=== PATIENT | female | born 1960 | race Caucasian/White ===

== ENCOUNTER → 2017-12-10 11:20 | Outpatient (CLI) | payer OTHER, SELFPAY ==
[2017-12-10 12:10] LABS: Absolute Lymphocyte Count 1.13 X10^3/ul (0.83-4.51); Basophil# 0.03 X10^3/uL; Basophil% 0.6 % (0-1); Eosinophil# 0.18 X10^3/uL; Eosinophils% 3.8 % (0-5); Hemoglobin 10.3 g/dl (12.0-15.0); Lymphocyte # 1.13 X10^3/ul (4.0); Lymphocyte % 23.8 % (19-41); Mean Corp Hgb Conc 33.2 g/gl (32-36); Mean Corpuscular Hgb 28.6 pg (27.0-32.0); Mean Corpuscular Volume 86.1 fL (81-99); Mean Platelet Vol. 9.4 fl (6.2-12.0); Monocyte# 0.36 X10^3/uL; Monocyte% 7.6 % (0-10); Neutrophil # 3.03 X10^3/uL (2.7-7.7); Platelet Count 261 K/mm3 (150-450); RBC Distribution Width CV 12.2 % (11.6-14.6); RBC Distribution Width SD 36.7 fl (35.1-43.9); White Blood Count 4.7 K/mm3 (4.4-11.0)
[2017-12-10 12:11] LABS: POSITIVE COUNT NO; POSITIVE DIFFERENTIAL NO; POSITIVE MORPHOLOGY NO
[2017-12-10 12:46] LABS: ALB/GLOB Ratio 0.5 RATIO (0.9-2.4); AST(SGOT) 9 U/L (15-37); Alanine Aminotransfer ALT/SGPT 11 U/L (13-56); Albumin, Serum 2.3 g/dL (3.2-5.0); Alkaline Phosphatase 106 U/L (45-117); Anion Gap 10 (5-15); BUN 36 mg/dL (7-18); BUN/Creat Ratio 18.4 RATIO (10-20); Calcium,Total 8.5 mg/dL (8.5-10.1); Chloride 108 mmol/L (98-107); Creatinine, Serum 1.96 mg/dL (0.55-1.02); EST Glomerular Filtration Rate 28 mL/min (>60); Est Glom Filt Rate - Afr Amer 34 mL/min (>60); Globulin 5.1 g/dL (2.2-4.2); Glucose 137 mg/dL (74-106); Protein, Total 7.4 g/dL (6.4-8.2); Sodium Level 142 mmol/L (136-145)
== END ==
PROVIDERS: Family Provider Internal Medicine; PCP Internal Medicine; Visit Provider Internal Medicine Rheumatology
DX: M05.79 Rheumatoid arthritis with rheumatoid factor of multiple sites without organ or systems involvement (principal); L94.0 Localized scleroderma [morphea]; K76.0 Fatty (change of) liver, not elsewhere classified; M75.41 Impingement syndrome of right shoulder; F32.89 Other specified depressive episodes; Z79.899 Other long term (current) drug therapy
CPT/HCPCS: 36415; 80053; 85025

== ENCOUNTER → 2018-08-06 11:17 | Outpatient (CLI) | payer OTHER, SELFPAY ==
[2018-08-06 12:46] LABS: Protein, Urine (Random) 580.9 mg/dL (<11.9); Protein:Creat Ratio 7735 mg/g CRE (0-200)
== END ==
PROVIDERS: Family Provider Internal Medicine; PCP Internal Medicine; Visit Provider Internal Medicine Nephrology
DX: R80.9 Proteinuria, unspecified (principal)
CPT/HCPCS: 82570; 84156

== ENCOUNTER → 2018-08-09 16:00 | Outpatient (CLI) | payer OTHER, SELFPAY ==
--- NOTE | 2018-08-09 16:06 | US_ITS ---
STUDY: RENAL ULTRASOUND - COMPLETE REASON FOR EXAM: Female, 57 years old. Acute renal failure. TECHNIQUE: Ultrasound evaluation of the kidneys was performed with real-time and static sigala-scale imaging. COMPARISON: None. FINDINGS: RIGHT KIDNEY: Normal location of the right kidney, which is normal in size. The right kidney measures 13.6 x 6.4 x 5.7 cm. There is a normal cortex of the right kidney. The renal cortex measures 1.5 cm. There is no right renal mass or cyst. There are no right renal calculi. There is no right hydronephrosis. DISTAL RIGHT URETER: There is non-visualization of the distal right ureter. There is no demonstrated right ureterovesical junction calculus. There is no demonstrated right ureteral jet. LEFT KIDNEY: Normal location of the left kidney, which is normal than usual in size. The left kidney measures 15.8 x 5.6 x 4.9 cm. There is a normal cortex of the left kidney. The renal cortex measures 1.6 cm. Multiple cysts in the left kidney the largest is in the upper pole measuring about 1.9 x 1.9 x 1.7 cm. There is a cyst measuring about 1.7 x 1.4 x 1.5 cm. There are no left renal calculi. There is no left hydronephrosis. There is suboptimal visualization of the left kidney. DISTAL LEFT URETER: There is non-visualization of the distal left ureter. There is no demonstrated left ureterovesical junction calculus. There is no demonstrated left ureteral jet. BLADDER: The distended urinary bladder has a volume of 41 ml. The bladder is not well-distended and difficult to evaluate. There is a normal wall thickness of the distended urinary bladder. There is no demonstrated mass within the urinary bladder. There are no demonstrated bladder calculi. US/Kidney and Bladder IMPRESSION: Left renal cysts. No evidence for hydronephrosis. Electronically Signed: Imtiaz Carson MD at 15:49 EST Tel , Service support ,
== END ==
PROVIDERS: Family Provider Internal Medicine; PCP Internal Medicine; Referring Provider Internal Medicine Nephrology; Visit Provider Internal Medicine Nephrology
DX: N17.9 Acute kidney failure, unspecified (principal)
CPT/HCPCS: 76770

== ENCOUNTER → 2018-11-28 09:45 | Outpatient (CLI) | payer OTHER, SELFPAY ==
--- NOTE | 2018-11-28 09:50 | VDUE_ITS ---
Reason For Study: CKD - assess for AVF placement Right Arm Left Arm Right Cephalic Vein at the wrist Left Cephalic Vein at the wrist measures .23 measures .23 x .24 cm. x .23 cm. Right Cephalic Vein in the forearm Left Cephalic Vein in the forearm measures .31 x .32 cm. measures .26 x .23 cm. Right Cephalic Vein below antecub Left Cephalic Vein below antecub measures .31 x .32 cm. measures .29 x .30 cm. Right Cephalic Vein above antecub Left Cephalic Vein above antecub measures .47 x .50 cm. measures .40 x .39 cm. Right Cephalic Vein mid bicep measures .46 Left Cephalic Vein at mid bicep measures .42 x .40 cm. x .45 cm. Right Cephalic Vein at the shoulder Left Cephalic Vein at the shoulder measures .40 x .42 cm. measures .46 x .47 cm. Right Basilic Vein at the origin Basilic vein at origin measures .40 x .40 measures .42 x .47 cm. cm. Right Basilic Vein mid bicep measures .41 Basilic vein at bicep measures .26 x .27 cm. x .43 cm. Basilic vein above antecub measures .23 Right Basilic Vein above antecub x .25 cm. measures .37 x .38 cm. Brachial artery - .41 x .45 cm with a Brachial artery - .48 x .49 cm with a velocity of 106 cm/s velocity of 97.9 cm/s Radial artery - .30 x .34 cm with a velocity Radial artery - .26 x .25 cm with a velocity of 85.0 cm/s. of 91.5 cm/s. Interpretation Summary Patent and compressible bilateral upper extremity cephalic and basilic veins Adequate bilateral radial and brachial arteries. Ordering Physician: Chayito Jernigan Referring Physician: Ember Santos M.D. Performed By: Jenna Christina RVT ?
== END ==
PROVIDERS: Family Provider Internal Medicine; PCP Internal Medicine; Referring Provider Internal Medicine Nephrology; Visit Provider Internal Medicine Nephrology
DX: N18.4 Chronic kidney disease, stage 4 (severe) (principal)
CPT/HCPCS: 93970

== ENCOUNTER 2018-12-26 09:40 | Day surgery (SDC) | payer OTHER, SELFPAY ==
[2018-12-03 14:00] VITALS: BMI 41.6
[2018-12-21 09:50] LABS: Hematocrit 27.6 % (37-47); Hemoglobin 8.8 g/dl (12.0-15.0); Mean Corp Hgb Conc 31.9 g/gl (32-36); Mean Corpuscular Volume 84.7 fL (81-99); Mean Platelet Vol. 9.7 fl (6.2-12.0); Platelet Count 195 K/mm3 (150-450); RBC Distribution Width SD 43.5 fl (35.1-43.9); Red Blood Count 3.26 M/mm3 (4.2-5.4); White Blood Count 6.9 K/mm3 (4.4-11.0)
--- NOTE | 2018-12-21 10:00 | EKG12_ITS ---
Test Reason : PRE-OP Blood Pressure : / mmHG Vent. Rate : 063 BPM Atrial Rate : 063 BPM P-R Int : 154 ms QRS Dur : 092 ms QT Int : 472 ms P-R-T Axes : 007 -21 084 degrees QTc Int : 483 ms Normal sinus rhythm Nonspecific T wave abnormality Prolonged QT Abnormal ECG Confirmed by PETR SOLORZANO, BEE ([id number]), publication editor DEEPA WEINSTEIN ([id number]) on 12/24/2018 2:05:30 PM Referred By: Jimenez Lemons Confirmed By:BEE HUMPHREYS MD
[2018-12-21 10:01] LABS: Scan Indicated on CBC? Y/N NO
[2018-12-21 10:34] LABS: Anion Gap 8 (5-15); BUN 72 mg/dL (7-18); BUN/Creat Ratio 21.6 RATIO (10-20); Calcium,Total 8.1 mg/dL (8.5-10.1); Chloride 114 mmol/L (98-107); Creatinine, Serum 3.34 mg/dL (0.55-1.02); EST Glomerular Filtration Rate 15 mL/min (>60); Est Glom Filt Rate - Afr Amer 18 mL/min (>60); Glucose 142 mg/dL (74-106); Potassium 4.2 mmol/L (3.5-5.1); Sodium Level 143 mmol/L (136-145)
[2018-12-26 10:46] VITALS: BP 178/72; PULSE 60; RESP 16; TEMP 36.9; O2SAT 99; BMI 43.0
[2018-12-26 11:01] LABS: Bedside Glucose 55 mg/dL (70-110)
--- NOTE | 2018-12-26 12:27 | PCM.DC.FIST ---
Discharge Diet: Renal Diet Discharge Activity: May Not Drive - for 2-3 days or while taking narcotic pain medications., May Take a Tub Bath - in 5 days. Lifting Restrictions: 5 pounds Keep extremity elevated above heart level: - - Keep arm elevated above the heart level for 3 days. Additional Activity Instructions:: Exercise hand vigorously with a stress ball. Call your doctor if your incision/area has: Continuous Slow Oozing, Sudden Increased Bleeding - apply pressure and call your doctor., Increased Pain/ Swelling, Increased Redness, Foul Smelling Discharge Call your doctor if you observe: Fever of 101 or Higher Suture Line Care: Avoid Pulling/Pushing, Avoid Pinching/Bending Cleanse incision/area with: Keep Dressing Clean & Dry Additional Dressing/Incision Instructions:: Change or remove dressing in 2 days. You may then leave the incision open with steri strips intact or cover with a gauze dressing as needed for comfort Allergies/Adverse Reactions: Allergies No Known Allergies Allergy (Verified 12/19/18 14:56) Medications to take at Discharge abatacept 125 mg/mL subcutaneous auto-injector 125 mg SC QWEEK 12/03/18 albuterol sulfate 90 mcg/actuation breath activated powder inhaler 1 inh INHALATION Q4H PRN 12/03/18 albuterol sulfate HFA 90 mcg/actuation aerosol inhaler 1 puff INHALATION Q6H PRN 12/03/18 amlodipine 5 mg tablet 5 mg PO DAILY 12/03/18 atorvastatin 40 mg tablet 40 mg PO DAILY 12/03/18 bumetanide 1 mg tablet 1 mg PO DAILY 12/03/18 carvedilol 25 mg tablet 25 mg PO BID 12/03/18 ergocalciferol (vitamin D2) 50,000 unit capsule 50,000 unit PO QWEEK 12/03/18 ferrous sulfate 325 mg (65 mg iron) tablet 325 mg PO TID tab 12/03/18 insulin aspart (U-100) 100 unit/mL (3 mL) subcutaneous pen 27 unit SC TID 12/03/18 insulin degludec (U- 100) 100 unit/mL subcutaneous solution 96 unit SC QHS 12/03/18 lisinopril 20 mg tablet 20 mg PO DAILY 12/03/18 omeprazole 20 mg capsule,delayed release 20 mg PO DAILY 12/03/18 Hydrocodone Bitart/Apap 5-325 [[place] 5MG-325MG] 1 tablet PO Q6H PRN PRN 2 Days #6 tablet 12/26/18 The following prescriptions were given: Hydrocodone Bitart/Apap 5-325 [[place] 5MG-325MG] 1 tablet PO Q6H PRN PRN 2 Days #6 tablet PRN Reason: Pain Primary Care Physician: Ember Santos MD [Primary Care Provider] - Test Results: Test results from this visit will be discussed in further detail at your follow-up appointment, if applicable. Please Follow Up With: Jimenez Lemons MD - [phone] When: Call to make an appointment for suture removal and follow up in 10 days
[2018-12-26] MEDS: Heparin Injection (Vial) 5,000 UNIT/ML VIAL 5000 UNIT (12:30)
[2018-12-26] MEDS: Bupivacaine Mpf 0.5% 30 ML VIAL (13:30)
--- NOTE | 2018-12-26 14:35 | OP.PCM_ITS ---
Problem List (1) Chronic renal failure, stage 4 (severe) Status: Chronic Report of Operation Date of Procedure: 12/26/18 Pre-Operative Diagnosis: Stage IV chronic renal insufficiency Post-Operative Diagnosis: Same Surgery/Procedure Performed:: Transposition left forearm cephalic vein to radial artery arteriovenous hemodialysis fistula creation Description of Surgical Findings:: Timeout and informed consent was obtained. 58-year-old female significant placement table with monitored anesthesia care. The left upper extremity was sterilely prepped and draped. 33 cc of 1% lidocaine mixed 50-50 with 0.5% Marcaine and 6 cc of 1/2% lidocaine was used as local anesthetic throughout. Ultrasound was used to map the course of the cephalic vein starting from the wrist proximally. Local was instilled a longitudinal incision was eventually created from the wrist up to the antecubital space. Tedious sharp and blunt dissection was used to harvest the cephalic vein. Side branches were secured with 4-0 Vicryl ligatures and hemoclips were indicated. Then the vein was inked marked on the anterior surface it was measured. An appropriate position at the radial artery local was instilled a longitudinal incision was created sharp blunt dissection was used to identify the radial artery and circumferential control was obtained. Then a straight tunnel was placed from the wrist to the a ntecubital space this was medial to the harvest incision. The vein was ligated distally with hemoclips it was at a branch point so the vein could be spatulated at a branch point. It was then carefully tunneled supposed to assure no twists. It was irrigated seem to have a good positional lie. Weightbase the patient received 11,000 units of heparin intravenously. Peripheral vascular clamps were placed on the partially mobilized radial artery. An 11 blade was used to make an arteriotomy was extended with Mi scissors. A end-to-side anastomosis was made with the cephalic vein to the radial artery with a running 7-0 Prolene. Prior to completion there is good antegrade and retrograde flow. The anastomosis was completed hemostasis was intact. The vein was carefully inspected and it appeared to have a very good positional lie. There was a good pulse and adequate thrill. The wounds were now closed in layers with multiple interrupted 3-0 Vicryl subdermal stitches followed by running septic or 4-0 Monocryl. Steri-Strips Telfa soft roll and Enoch wrap applied. Sponge and instrument and needle counts were reported to surgically correct. Specimens none. Drains none. Blood loss 150 cc. Hand was viable at the completion and there is adequate capillary refill she was taken to the recovery area in satisfactory condition. Jimenez Lemons M.D., F.A.C.S. Type of Anesthesia:: Local MAC Anesthesiologist: Renny Abad
[2018-12-26 14:36] LABS: Bedside Glucose 135 mg/dL (70-110)
[2018-12-26 14:36] LABS: Bedside Glucose 132 mg/dL (70-110)
[2018-12-26 15:00] VITALS: BP 138/61; BP 178/72; PULSE 57; RESP 16; TEMP 36.1; O2SAT 93
[2018-12-26 15:05] VITALS: BP 140/62; BP 178/72; PULSE 57; RESP 16; O2SAT 93
[2018-12-26 15:10] VITALS: BP 131/61; BP 178/72; PULSE 56; RESP 16; O2SAT 92
[2018-12-26 15:15] VITALS: BP 142/64; BP 178/72; PULSE 57; RESP 16; TEMP 36.4; O2SAT 93
[2018-12-26 15:25] LABS: Bedside Glucose 107 mg/dL (70-110)
[2018-12-26 16:05] VITALS: BP 141/62; BP 178/72; PULSE 57; RESP 16; TEMP 36.2; O2SAT 95
== END 2018-12-26 16:44 | disposition home or self-care (01) ==
LOC: SDC 09:43 → AC 09:44
PROVIDERS: Family Provider Internal Medicine; PCP Internal Medicine; Referring Provider Surgery; Visit Provider Surgery
PROC: (CPT 36820; principal; 2018-12-26 11:45)
DX: E11.22 Type 2 diabetes mellitus with diabetic chronic kidney disease (principal); I13.2 Hypertensive heart and chronic kidney disease with heart failure and with stage 5 chronic kidney disease, or end stage renal disease; N18.6 End stage renal disease; M06.9 Rheumatoid arthritis, unspecified; Z99.2 Dependence on renal dialysis; D50.9 Iron deficiency anemia, unspecified; E78.00 Pure hypercholesterolemia, unspecified; J45.909 Unspecified asthma, uncomplicated; K21.9 Gastro-esophageal reflux disease without esophagitis; E66.01 Morbid (severe) obesity due to excess calories; F41.9 Anxiety disorder, unspecified; Z78.0 Asymptomatic menopausal state; Z79.4 Long term (current) use of insulin; Z79.899 Other long term (current) drug therapy
CPT/HCPCS: 01844; 36820; 36415; 80048; 82962; 85027; 93005; J2405

== ENCOUNTER → 2019-01-06 13:32 | Outpatient (CLI) | payer OTHER, SELFPAY ==
[2018-12-26 10:46] VITALS: BMI 43.0
[2019-01-06 13:23] VITALS: BMI 43.0
[2019-01-06 15:12] LABS: Hemoglobin 8.6 g/dl (12.0-15.0); Mean Corp Hgb Conc 30.7 g/gl (32-36); Mean Corpuscular Hgb 26.7 pg (27.0-32.0); Mean Platelet Vol. 10.2 fl (6.2-12.0); Platelet Count 225 K/mm3 (150-450); RBC Distribution Width CV 15.3 % (11.6-14.6); RBC Distribution Width SD 47.7 fl (35.1-43.9); Red Blood Count 3.22 M/mm3 (4.2-5.4); White Blood Count 6.1 K/mm3 (4.4-11.0)
[2019-01-06 15:14] LABS: Scan Indicated on CBC? Y/N NO
[2019-01-06 15:32] LABS: Protein, Urine (Random) 362.1 mg/dL (<11.9); Protein:Creat Ratio 8174 mg/g CRE (0-200)
[2019-01-06 15:50] LABS: Vitamin D,25 Hydroxy 27.7 ng/mL (29.95-100.01)
[2019-01-06 15:52] LABS: Albumin, Serum 2.7 g/dL (3.2-5.0); BUN 61 mg/dL (7-18); BUN/Creat Ratio 21.2 RATIO (10-20); Calcium,Total 8.4 mg/dL (8.5-10.1); Chloride 113 mmol/L (98-107); Creatinine, Serum 2.88 mg/dL (0.55-1.02); EST Glomerular Filtration Rate 18 mL/min (>60); Est Glom Filt Rate - Afr Amer 22 mL/min (>60); Ferritin 126 ng/mL (8-252); Glucose 79 mg/dL (74-106); Iron 37 ug/dL (50-170); Iron Binding Capacity,Total 250 ug/dL (250-450); Phosphorus 4.5 mg/dL (2.5-4.9); Potassium 4.2 mmol/L (3.5-5.1); Sodium Level 144 mmol/L (136-145)
== END ==
PROVIDERS: Family Provider Internal Medicine; PCP Internal Medicine; Referring Provider Internal Medicine Nephrology; Visit Provider Internal Medicine Nephrology
DX: E11.22 Type 2 diabetes mellitus with diabetic chronic kidney disease (principal); N18.4 Chronic kidney disease, stage 4 (severe); D50.9 Iron deficiency anemia, unspecified
CPT/HCPCS: 36415; 80069; 82306; 82570; 82728; 83540; 83550; 83970; 84156; 85027

== ENCOUNTER 2019-02-10 14:05 | Outpatient (RCR) | payer OTHER, SELFPAY ==
[2019-01-06 13:23] VITALS: BMI 43.0
[2019-02-10 15:21] LABS: Albumin, Serum 2.5 g/dL (3.2-5.0); BUN 77 mg/dL (7-18); BUN/Creat Ratio 24.1 RATIO (10-20); Calcium,Total 8.3 mg/dL (8.5-10.1); Chloride 111 mmol/L (98-107); Creatinine, Serum 3.19 mg/dL (0.55-1.02); EST Glomerular Filtration Rate 16 mL/min (>60); Est Glom Filt Rate - Afr Amer 19 mL/min (>60); Glucose 102 mg/dL (74-106); Phosphorus 4.7 mg/dL (2.5-4.9); Potassium 3.9 mmol/L (3.5-5.1); Sodium Level 144 mmol/L (136-145)
[2019-02-10 15:43] LABS: PTHIN 329.4 pg/mL (18.4-80.1)
== END 2019-03-02 12:00 | disposition home or self-care (01) ==
LOC: LAB 14:05
PROVIDERS: Family Provider Internal Medicine; PCP Internal Medicine; Referring Provider Internal Medicine Nephrology; Visit Provider Internal Medicine Nephrology
DX: N18.4 Chronic kidney disease, stage 4 (severe) (principal); N25.81 Secondary hyperparathyroidism of renal origin
CPT/HCPCS: 36415; 80069; 83970

== ENCOUNTER 2019-03-25 16:25 | Outpatient (RCR) | payer OTHER, SELFPAY ==
[2019-01-06 13:23] VITALS: BMI 43.0
[2019-03-25 17:06] LABS: Absolute Neutrophil Count 4.4 X10^3/uL (2.0-7.7); Basophil# 0.06 X10^3/uL; Basophil% 0.9 % (0-1); Eosinophil# 0.32 X10^3/uL; Eosinophils% 4.7 % (0-5); Hematocrit 31.5 % (37-47); Hemoglobin 9.9 g/dL (12.0-15.0); Lymphocyte % 20.8 % (19-41); Mean Corp Hgb Conc 31.4 g/dL (32-36); Mean Corpuscular Hgb 26.3 pg (27.0-32.0); Mean Corpuscular Volume 83.6 fL (81-99); Mean Platelet Vol. 10.4 fl (6.2-12.0); Monocyte# 0.58 X10^3/uL; Monocyte% 8.6 % (0-10); NRBC Flagged by Analyzer 0 % (0-5); Neutrophil # 4.36 X10^3/uL (2.7-7.7); Neutrophil % 64.7 % (47-70); Platelet Count 197 K/mm3 (150-450); RBC Distribution Width SD 45.6 fl (35.1-43.9); Red Blood Count 3.77 M/mm3 (4.2-5.4); White Blood Count 6.7 K/mm3 (4.4-11.0)
[2019-03-25 17:34] LABS: ALB/GLOB Ratio 0.6 RATIO (0.9-2.4); AST(SGOT) 16 U/L (15-37); Alanine Aminotransfer ALT/SGPT 24 U/L (13-56); Albumin, Serum 2.7 g/dL (3.2-5.0); Alkaline Phosphatase 118 U/L (45-117); Anion Gap 13 (5-15); BUN 76 mg/dL (7-18); BUN/Creat Ratio 20.3 RATIO (10-20); Calcium,Total 8.6 mg/dL (8.5-10.1); Chloride 110 mmol/L (98-107); Creatinine, Serum 3.74 mg/dL (0.55-1.02); EST Glomerular Filtration Rate 13 mL/min (>60); Est Glom Filt Rate - Afr Amer 16 mL/min (>60); Globulin 4.2 g/dL (2.2-4.2); Glucose 137 mg/dL (74-106); Phosphorus 5.5 mg/dL (2.5-4.9); Potassium 3.9 mmol/L (3.5-5.1); Protein, Total 6.9 g/dL (6.4-8.2); Sodium Level 142 mmol/L (136-145)
[2019-03-25 18:06] LABS: PTHIN 158.8 pg/mL (18.4-80.1)
== END 2019-04-02 16:00 | disposition home or self-care (01) ==
LOC: LAB 16:25
PROVIDERS: Family Provider Internal Medicine; PCP Internal Medicine; Referring Provider Internal Medicine Nephrology; Visit Provider Internal Medicine Nephrology
DX: N18.4 Chronic kidney disease, stage 4 (severe) (principal); N25.81 Secondary hyperparathyroidism of renal origin
CPT/HCPCS: 36415; 80053; 83970; 84100; 85025

== ENCOUNTER → 2019-04-02 13:49 | Outpatient (CLI) | payer OTHER, SELFPAY ==
[2019-01-06 13:23] VITALS: BMI 43.0
[2019-04-03 10:52] LABS: Hepatitis B Surface Antibody Non-Reactive; Hepatitis B Surface Antigen Non-Reactive (Nonreactive)
== END ==
PROVIDERS: Family Provider Internal Medicine; PCP Internal Medicine; Visit Provider Internal Medicine Nephrology
DX: N18.5 Chronic kidney disease, stage 5 (principal)
CPT/HCPCS: 36415; 86706; 87340

== ENCOUNTER → 2019-04-07 07:51 | Outpatient (CLI) | payer OTHER, SELFPAY ==
[2019-01-06 13:23] VITALS: BMI 43.0
[2019-04-07 10:06] LABS: Albumin, Serum 2.6 g/dL (3.2-5.0); BUN 86 mg/dL (7-18); BUN/Creat Ratio 22.8 RATIO (10-20); Calcium,Total 8.5 mg/dL (8.5-10.1); Chloride 115 mmol/L (98-107); Creatinine, Serum 3.77 mg/dL (0.55-1.02); EST Glomerular Filtration Rate 13 mL/min (>60); Est Glom Filt Rate - Afr Amer 16 mL/min (>60); Glucose 63 mg/dL (74-106); Phosphorus 5.7 mg/dL (2.5-4.9); Potassium 4.1 mmol/L (3.5-5.1); Sodium Level 144 mmol/L (136-145)
[2019-04-07 10:08] LABS: 24HR. UA Prot. Total Volume 1775 mL
[2019-04-07 10:09] LABS: Creat.Clear Total Volume 1775 mL; Creatinine Clearance 23 ml/min (100-200); Creatinine Serum Creat 3.8 mg/dL (0.6-1.0); Creatinine Urine 69.1 mg/dL (NO RANGE EST.); EST Glomerular Filtration Rate 13 mL/min (>60); Est Glom Filt Rate - Afr Amer 16 mL/min (>60); Urine Protein (24 Hour) 368.9 mg/dL (<11.9)
== END ==
LOC: LAB.FUTURE 07:53 → LABSPEC 07:54
PROVIDERS: Family Provider Internal Medicine; PCP Internal Medicine; Referring Provider Internal Medicine Nephrology; Visit Provider Internal Medicine Nephrology
DX: N18.5 Chronic kidney disease, stage 5 (principal)
CPT/HCPCS: 36415; 80069; 82575; 84156

== ENCOUNTER 2019-07-21 16:20 | Inpatient (IN) | payer OTHER, SELFPAY ==
[2019-01-06 13:23] VITALS: BMI 43.0
[2019-07-21] VITALS (14 sets, daily range): BP systolic 134–172; BP diastolic 60–95; PULSE 57–74; RESP 12–28; TEMP 36.8–37.6; O2SAT 88–100; BMI 45.2; BMI 45.3
[2019-07-21 15:44] LABS: Absolute Lymphocyte Count 0.39 X10^3/uL (0.83-4.51); Absolute Neutrophil Count 2.5 X10^3/uL (2.0-7.7); Basophil# 0.02 X10^3/uL; Basophil% 0.6 % (0-1); Eosinophil# 0.01 X10^3/uL; Eosinophils% 0.3 % (0-5); Hemoglobin 10.1 g/dL (12.0-15.0); Lymphocyte # 0.39 X10^3/ul (4.0); Lymphocyte % 11.6 % (19-41); Mean Corp Hgb Conc 29.7 g/dL (32-36); Mean Corpuscular Hgb 26.5 pg (27.0-32.0); Mean Corpuscular Volume 89.2 fL (81-99); Mean Platelet Vol. 10.1 fl (6.2-12.0); Monocyte# 0.37 X10^3/uL; NRBC Flagged by Analyzer 0 % (0-5); Neutrophil # 2.53 X10^3/uL (2.7-7.7); Neutrophil % 75.3 % (47-70); POSITIVE DIFFERENTIAL YES; Platelet Count 129 K/mm3 (150-450); RBC Distribution Width CV 16.4 % (11.6-14.6); RBC Distribution Width SD 53.8 fl (35.1-43.9); Red Blood Count 3.81 M/mm3 (4.2-5.4); White Blood Count 3.4 K/mm3 (4.4-11.0)
[2019-07-21 16:09] LABS: ALB/GLOB Ratio 0.6 RATIO (0.9-2.4); AST(SGOT) 35 U/L (15-37); Alanine Aminotransfer ALT/SGPT 30 U/L (13-56); Albumin, Serum 2.4 g/dL (3.2-5.0); Alkaline Phosphatase 155 U/L (45-117); Anion Gap 9 (5-15); BUN 75 mg/dL (7-18); BUN/Creat Ratio 18.6 RATIO (10-20); Calcium,Total 8.3 mg/dL (8.5-10.1); Chloride 113 mmol/L (98-107); Creatinine, Serum 4.03 mg/dL (0.55-1.02); EST Glomerular Filtration Rate 12 mL/min (>60); Est Glom Filt Rate - Afr Amer 15 mL/min (>60); Glucose 104 mg/dL (74-106); Magnesium 1.8 mg/dL (1.6-2.6); Potassium 4.5 mmol/L (3.5-5.1); Protein, Total 6.4 g/dL (6.4-8.2); Sodium Level 141 mmol/L (136-145)
[2019-07-21 16:20] LABS: BNP,B-Type NATRIURETIC PEPTIDE 405.6 pg/mL (0-100); Differential Indicated SCAN CRITERIA MET
--- NOTE | 2019-07-21 16:20 | ECHOD_ITS ---
Reason For Study: CHF Procedure This was a 2D Doppler, Color Flow transthoracic echocardiogram. Exam performed portable in ICU/CCU. Left Ventricle Normal LV size. Left ventricular systolic function is normal. The estimated ejection fraction is 55 %. Stage 2 diastolic dysfunction. No regional wall motion abnormalities noted. Right Ventricle Mildly dilated right ventricle. Normal systolic function. Atria The left atrium is mildly enlarged. Normal right atrium. Mitral Valve Normal mitral valve. Tricuspid Valve Normal tricuspid valve. Mild (1+) tricuspid valve insufficiency. Pulmonary artery systolic pressure is 30 mmHg. Aortic Valve Trisinus/trileaflet aortic valve. Pulmonic Valve Normal pulmonic valve. Great Vessels Normal aortic root. The pulmonary artery is normal size. Normal inferior vena cava. Pericardium/Pleural No pericardial effusion. MMode/2D Measurements & Calculations LVIDd: 5.8 cm IVSd: 1.1 cm Ao root diam: 3.1 cm LVIDs: 3.8 cm LVPWd: 1.0 cm RVDd: 3.9 cm FS: 33.5 % LAV(MOD-bp): 73.7 ml LA A4 area: 23.7 cm2 LA dimension(2D): 4.5 cm LAV(MOD-bp) Indexed: 32.1 ml/m2 LAV(MOD-sp2): 65.0 ml LAV(MOD-sp4): 75.9 ml RA A4 area: 20.7 cm2 Time Measurements MV dec time: 0.21 sec Doppler Measurements & Calculations MV E max barry: 102.3 cm/sec Lat Peak E' Barry: 8.3 cm/sec Med Peak E' Barry: 7.7 cm/sec MV A max barry: 69.5 cm/sec E/E' lat: 12.4 E/E' med: 13.3 MV E/A: 1.5 Ao V2 max: 149.5 cm/sec LV V1 max: 116.1 cm/sec PA V2 max: 128.9 cm/sec Ao max P.9 mmHg LV V1 max P.4 mmHg TR max barry: 258.0 cm/sec TR max P.6 mmHg Interpretation Summary Normal LV size. Left ventricular systolic function is normal. The estimated ejection fraction is 55 %. Stage 2 diastolic dysfunction. Mild (1+) tricuspid valve insufficiency. Ordering Physician: Carissa Jernigan Referring Physician: Ember Mann Performed By: Laila James RDCS, RVT
--- NOTE | 2019-07-21 16:42 | PCM.HP.STD ---
Problem List (1) Acute respiratory failure Status: Acute Qualifiers: Respiratory failure complication: hypoxia Qualified Code(s): J96.01 - Acute respiratory failure with hypoxia History of Present Illness Date of Admission: 07/21/19 The patient is a 58 year old F who presented to [facility] with c/o SOB and oxygen saturations in the mid 70's on RA. She states that she has had increased SOB over the last month but has become acutely worse in the last few days. She c/o chills but no documented fever has been noted. She has a mildly productive cough. She is on chronic immunosuppression (abatacept) for RA and her last dose was about 2 weeks ago. She states that she has chronic edema that is usually worse in the am but has worsened and she has noted that she has gained weight (about 14 kg). She has a fistula in her R UE that is ready for use but she has never required HD in the past. 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 She was given 40 mg of lasix in the ED and transferred here for further care. She notes that she is feeling somewhat better now that she is on BIPAP. Sats were in the 80's on a venti mask upon arrival to our ICU. Past Medical History Past Medical History (Chronic Problems): Chronic Problems (Last Reviewed 04/03/19 @ 07:40 by Domonique Evangelista) Chronic renal failure, stage 4 (severe) (Chronic) HTN (hypertension) (Chronic) Medical History: Medical History (Last Reviewed 04/03/19 @ 07:40 by Domonique Evangelista) Morbid obesity (Acute) E66.01 Rheumatoid arthritis (Acute) M06.9 Diabetes mellitus type 2 in obese (Acute) E11.69, E66.9 Chronic renal failure, stage 4 (severe) (Chronic) N18.4 Obesity (Acute) E66.9 High cholesterol (Acute) E78.00 HTN (hypertension) (Chronic) I10 Asthma (Acute) J45.909 Rheumatoid arthritis (Acute) M06.9 Kidney failure (Acute) N19 CHF (congestive heart failure) (Acute) I50.9 EDNA (iron deficiency anemia) (Acute) D50.9 Allergies No Known Allergies Allergy (Verified 04/03/19 07:40) Home Medications: Ambulatory Orders Medication Instructions Recorded abatacept 125 mg/mL subcutaneous 125 mg SC QWEEK 12/03/18 auto-injector albuterol sulfate 90 mcg/actuation 1 inh INHALATION Q4H PRN 12/03/18 breath activated powder inhaler albuterol sulfate HFA 90 1 puff INHALATION Q6H PRN 12/03/18 mcg/actuation aerosol inhaler amlodipine 5 mg tablet 5 mg PO DAILY 12/03/18 atorvastatin 40 mg tablet 40 mg PO DAILY 12/03/18 bumetanide 1 mg tablet 1 mg PO DAILY 12/03/18 carvedilol 25 mg tablet 25 mg PO BID 12/03/18 ergocalciferol (vitamin D2) 50,000 50,000 unit PO QWEEK 12/03/18 unit capsule ferrous sulfate 325 mg (65 mg 325 mg PO TID tab 12/03/18 iron) tablet insulin aspart (U-100) 100 unit/mL 27 unit SC TID 12/03/18 (3 mL) subcutaneous pen insulin degludec (U-100) 100 96 unit SC QHS 12/03/18 unit/mL subcutaneous solution lisinopril 20 mg tablet 20 mg PO DAILY 12/03/18 omeprazole 20 mg capsule,delayed 20 mg PO DAILY 12/03/18 release Surgical History: Surgical History (Last Reviewed 04/03/19 @ 07:40 by Domonique Evangelista) Hx of arteriovenostomy for renal dialysis (Acute) Onset Date: ~12/2018 Z99.2 12/26/18 Broken arm (Acute) S42.309A Surgical History: - - AV fistula ([place]) 2018 Psychiatric History: No pertinent psych hx 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 Denies: Anorexia, Fever, Night Sweats Eyes: Denies: Blurred vision, Cataracts, Conjunctivae Inflammation, Double vision, Drainage, Eyelid Inflammation, Pain, Redness, Vision Change HEENT: Denies: Difficulty Hearing, Difficulty Swallowing, Dysphasia, Ear Pain, Eye Pain, Hard of Hearing, Head Aches, Hearing Changes, Nasal bleeding, Nasal Congestion, Post Nasal Drip, Sinus Congestion, Sinus Drainage, Sore Throat, Visual Changes Cardiovascular: Reports: Edema, Orthopnea. Denies: Chest Pain, Claudication, Chest Pressure, Chest Tightness, Heaviness, Light Headedness, Palpitations, Paroxysmal Noc. Dyspnea, Syncope Respiratory: Reports: Cough, Shortness of Breath, Shortness of breath at rest, Shortness of breath upon exertion, Sputum production. Denies: Hemoptysis, Pleuritic Pain, Wheezing Gastrointestinal: Denies: Abdominal Pain, Constipation, Diarrhea, Dyspepsia, Hematemesis, Hematochezia, Nausea, Melena, Vomiting Genitourinary: Denies: Dysuria, Frequency, Hematuria, Hesitancy, Incontinence, Nocturia, Retention, Urgency Gynecological: Denies: Breast symptoms, Excessively long or heavy periods, Sexual concerns, Vaginal bleeding, Vaginal discharge, Vaginal itching Musculoskeletal: Reports: Joint stiffness, Joint swelling. Denies: Arm Pain, Back Pain, Foot Pain, Hand Pain, Joint Pain, Joint Tenderness, Leg Pain, Muscle pain, Neck Pain, Shoulder Pain Skin: Reports: -. Denies: Dryness, Jaundice, Lesions, Pruritis, Rash, Skin Changes, Wounds Neurological: Denies: Balance problems, Blurred vision, Double vision, Change in Speech, Slurred speech, Confusion, Difficulty swallowing, Focal weakness, Headaches, Incoordination, Numbness, Tingling, Tremor, Seizures Psychiatric: Denies: Anxiety, Depression, Suicidal Ideations Endocrine: Denies: Change in Body Habitus, Heat/ Cold Intolerance, Polydipsia, Polyuria, Hx of Irradiation, Hx of Thyroiditis Hematologic/ Lymphatic: Reports: Anemia. Denies: Adenopathy, Easy Bruising, Easy Bleeding, Petechiae, Purpura, Hx of blood clot, Hx of blood transfusion VTE Information - Inpt Only VTE Present on Admission: No VTE Mechan Device Prophylaxis: SCD's VTE Pharm Prophylaxis ordered?: Yes Patient Problems: Active and Suspected Problems (Last Reviewed 04/03/19 @ 07:40 by Domonique Evangelista) Acute respiratory failure (Acute) - Physical Exam Vitals/I&O's: Vital Signs Pulse Resp Pulse Ox 57 L 28 H 100 07/21/19 15:30 07/21/19 15:30 07/21/19 15:30 Oxygen Flow Rate (L/min) 15 Oxygen Delivery Method Non-Rebreather Weight: 127.2 kg Body Mass Index (BMI) 45.2 General: Alert, Oriented x3, Cooperative, Well developed, Well nourished, - - MO, mild respiratory distress on BIPAP HEENT: Atraumatic, PERRLA, EOMI, Normocephalic, EAC Clear Oral: Moist Mucosa, No Gingival or Mucosal Lesions/ Ulcerations, - - fair dentition Neck: Supple, Negative Carotid Bruits, No Nodes, Trachea Midline, Thyroid Normal Size and Texture, JVD, Bilateral, - - + HJR Lungs: No rhonchi, No wheeze, Rales - diffuse B, Short of Breath, Tachypneic, Using Accessory Muscles - mild Cardiovascular: Regular rate, Normal S1, Normal S2, No murmurs, No Ectopic Activity, No rub noted, No Gallop Abdomen: Bowel Sounds Present, Soft, Non Tender, Non-Distended, No Hepato-splenomegaly - palpated although difficult exam 2/2 body habitus, Obese - anasarca with pitting on abdomen Extremities: No clubbing, No cyanosis, No Calf Tenderness, Edema - 3+, Peripheral Pulses Normal Skin: No rashes, No breakdown, - - well healed L UE fistual with + bruit and thrill Musculoskeletal: No Tenderness to Palpation of Joints or Extremities, No Muscle Wasting, Arthritic Changes Lymphatic: No Cervical, Supraclavicular, or Inguinal Adenopathy Neurological: Cranial nerves II-XII grossly intact, Deep Tendon Reflexes 2+/4 and Symmetrical, Neuro grossly intact, Motor Exam 5/5 strength throughout Psych/Mental Status: Normal Affect, Appropriate Laboratory Results 07/21/19 15:30: WBC 3.4 L, RBC 3.81 L, Hgb 10.1 L, Hct 34.0 L, MCV 89.2, MCH 26.5 L, MCHC 29.7 L, RDW Std Deviation 53.8 H, RDW Coeff of Andres 16.4 H, Plt Count 129 L, MPV 10.1, Immature Gran % (Auto) 1.200 H, Neut % (Auto) 75.3 H, Lymph % (Auto) 11.6 L, Dickey % (Auto) 11.0 H, Eos % (Auto) 0.3, Baso % (Auto) 0.6, Absolute Neuts (auto) 2.5, Absolute Lymphs (auto) 0.39 L, Nucleated RBC % 0 07/21/19 15:30: Sodium 141, Potassium 4.5, Chloride 113 H, Carbon Dioxide 19.0 L, Anion Gap 9, BUN 75 H, Creatinine 4.03 H, Est GFR (MDRD) Af Amer 15 L, Est GFR (MDRD) Non-Af 12 L, BUN/Creatinine Ratio 18.6, Glucose 104, Calcium 8.3 L, Phosphorus 6.0 H, Magnesium 1.8, Total Bilirubin 0.50, AST 35, ALT 30, Alkaline Phosphatase 155 H, Troponin I < 0.015, Total Protein 6.4, Albumin 2.4 L, Globulin 4.0, Albumin/Globulin Ratio 0.6 L 07/21/19 15:30: B-Natriuretic Peptide 405.6 H Current Medications Acetaminophen (Tylenol) 650 mg RECTAL Q4H PRN PRN PRN Reason: Pain Score 1-3/Temp > 100.7 F Albuterol/Ipratropium (Duoneb) 3 ml INHALATION Q6H.RT URBANO Carvedilol (Coreg) 25 mg PO BID URBANO Dextrose (D50w Syringe) 0 gm IV X1 PRN; Protocol PRN Reason: Hypoglycemia Furosemide (Lasix) 100 mg IV Q8 URBANO Glucagon () 1 mg IM .X1 PRN PRN Reason: Hypoglycemia Heparin Sodium (Porcine) (Heparin Na) 5,000 unit SC Q8 URBANO Ceftriaxone Sodium 2 gm/ (Sodium Chloride) 50 mls @ 100 mls/hr IV Q24 URBANO Stop: 07/22/19 00:01 Azithromycin 500 mg/ Dextrose 255 mls @ 250 mls/hr IV X1 ONE Stop: 07/21/19 17:37 Insulin Human Lispro (Humalog Kwikpen (Bkc)) 0 unit SC Q6 URBANO; Protocol Lisinopril (Zestril) 20 mg PO DAILY [facility] Sodium Chloride () 10 - 40 ml IV UD PRN PRN Reason: SALINE FLUSH Assessment/Plan All Active Problems (Last Reviewed 04/03/19 @ 07:40 by Domonique Evangelista) Acute respiratory failure (Acute) Hx of arteriovenostomy for renal dialysis (Acute ~12/2018) Morbid obesity (Acute) Rheumatoid arthritis (Acute) Diabetes mellitus type 2 in obese (Acute) Broken arm (Acute) Obesity (Acute) High cholesterol (Acute) Asthma (Acute) Rheumatoid arthritis (Acute) Kidney failure (Acute) CHF (congestive heart failure) (Acute) EDNA (iron deficiency anemia) (Acute) Acute Hypoxemic Respiratory Failure -suspected 2/2 volume overload -Lasix 100 TID for now -Gross and monitor I/O's -BIPAP 16/04 with FiO2 30% -ABG in am -repeat BNP in am -Stat CXR for baseline and repeat in am -Check ECHO -repeat Trops (no elevation in [place]) -with immunosuppression with dose ABX x 1 dose ( CTX 2 gms and Azithro 500 mg) -check Urine antigens/Flu Swab/Sputum cx if able -? if any baseline lung issues with RA hx -consult PULM/ICU CKD stage 4 -has fistula L UE -consult Nephro as pt may need UF if diuresis is not effective -follow creatinine and UO (creatinine appears to be about baseline compared to creat from 04/03/19-3.8) DM-2 -pt states that she has been having lows -will dose now with mod dose SSI q 6 hrs for now and add/increase dosing as needed -NPO except for sips and chips for now HTN/HPL -continue Coreg and Lisinopril for now (with baseline creat) -hold norvasc -hold statin Chronic Fe Deficiency Anemia -hold Fe replacement Thrombocytopenia/Leukopenia -? volume status vs meds -follow (mild) Hyperphosphatemia -? phosphate binder -await nephro input Asthma DuoNebs q 6 RA -on immunosuppression (abatacept) -last dose 2 weeks ago -seen by Rheum MO -based on body habitus would suspect ALEE -will need outpt PSG once stable -recommend wgt loss Vit D Deficiency -on high dose Ergocalciferol as outpt CCT >30 min without procedures Code Visit Inpatient E&M: 19469 Init Hosp L3
--- NOTE | 2019-07-21 16:50 | RAD_ITS ---
STUDY: X-RAY CHEST REASON FOR EXAM: Female, 58 years old. Shortness of breath TECHNIQUE: Single AP portable view of the chest. COMPARISON: None. FINDINGS: monitoring engineer leads are present. There are bilateral perihilar infiltrates. There is no demonstrated pleural abnormality. There is mild cardiac enlargement. Normal mediastinum and alee. Normal visualized pulmonary arteries. Normal visualized aortic arch and descending thoracic aorta. Normal visualized thoracic spine. Normal visualized ribs, clavicles, and shoulders. There is no demonstrated abnormality of the visualized soft tissue structures of the upper abdomen. RAD/Chest 1 View (Portable) IMPRESSION: Bilateral perihilar infiltrates suggestive of pulmonary edema. Cardiomegaly. Electronically Signed: Rojas Spence MD at 17:23 EST , Service support ,
[2019-07-21 17:22] LABS: Anisocytosis 1+; Platelet Estimate SLT DEC (ADEQ); Red Cell Morphology N CHROM NORMAL (NORM C&C)
--- NOTE | 2019-07-21 17:27 | CON.PCM_ITS ---
Consultation - Renal 07/21/19 PCP/ Referring MD: Requesting physician: Carissa Jernigan DO Primary care physician: Ember Santos MD Reason for Consultation:: CKD stage 5, CHF - History of Present Illness History of Present Illness: The patient is a 58 year old F well known to me with CKD Stage 4 due to diabetes, had AVF placed left forearm but has not started dialysis. Her last 24-hour urine creatinine clearance was 23cc/minute on April 2019. Her creatinine has been running in the mid to high 3's. Creatinine on admission was at 4. She presented to [facility] ER with c/o worsening shortness of breath since last with hypoxemia. She was transferred to [facility] and is admitted to intensive care unit for further management. She had a cough with clear thick secretions. Currently on BiPAP and is responding appropriately. Denied any hemoptysis or fever. Admits to weakness and chills. Chest x-ray reveals pulmonary edema with significant lower extremity edema. She denies any change in her urine output on Lasix at home. She had decreased appetite without nausea or vomiting. She admits to diarrhea with loose stools last episode today. She is on chronic immunosuppression (abatacept) for RA and her last dose was about 2 weeks ago. Her next appt with me is next week. - Allergies Allergies: Allergies No Known Allergies Allergy (Verified 04/03/19 07:40) - Current Medications Current Medications: Current Medications Acetaminophen (Tylenol) 650 mg RECTAL Q4H PRN PRN PRN Reason: Pain Score 1-3/Temp > 100.7 F Albuterol/Ipratropium (Duoneb) 3 ml INHALATION Q6H.RT [facility] Carvedilol (Coreg) 25 mg PO BID U[facility]O Dextrose (D50w Syringe) 0 gm IV X1 PRN; Protocol PRN Reason: Hypoglycemia Furosemide (Lasix) 80 mg IV Q8 [facility] Glucagon () 1 mg IM .X1 PRN PRN Reason: Hypoglycemia Heparin Sodium (Porcine) (Heparin Na) 5,000 unit SC Q8 [facility] Ceftriaxone Sodium 2 gm/ (Sodium Chloride) 50 mls @ 100 mls/hr IV Q24 [facility] Stop: 07/21/19 17:29 Azithromycin 500 mg/ Dextrose 255 mls @ 250 mls/hr IV X1 ONE Stop: 07/21/19 17:37 Insulin Human Lispro (Humalog Kwikpen (Bkc)) 0 unit SC Q6 [facility]; Protocol Lisinopril (Zestril) 20 mg PO DAILY [facility] Sodium Chloride () 10 - 40 ml IV UD PRN PRN Reason: SALINE FLUSH - Past Medical History Past Medical History (Chronic Problems): Chronic Problems (Last Reviewed 04/03/19 @ 07:40 by Domonique Evangelista) Chronic renal failure, stage 4 (severe) (Chronic) HTN (hypertension) (Chronic) - Past Surgical History Surgical History: - - AV fistula ([place]) 2019 - Social History Smoking Status: Never smoker Alcohol: None Drugs: None Review of Systems Constitutional: Reports: Anorexia, Chills, Malaise, Weakness. Denies: Fever Eyes: Denies: Vision Change HEENT: Denies: Head Aches Cardiovascular: Reports: Edema, Orthopnea. Denies: Chest Pain, Syncope Respiratory: Reports: Shortness of breath at rest Gastrointestinal: Reports: Diarrhea. Denies: Abdominal Pain, Constipation, Nausea, Vomiting Genitourinary: Denies: Dysuria, Frequency Skin: Denies: Rash, Wounds Neurological: Reports: - - Generalized weakness. Denies: Tremor, Seizures Psychiatric: Denies: Anxiety, Depression Hematologic/ Lymphatic: Reports: Anemia Patient Problems: Active and Suspected Problems (Last Reviewed 04/03/19 @ 07:40 by Domonique Evangelista) Acute respiratory failure (Acute) - Physical Exam Vitals/I&O's: Vital Signs Pulse Resp Pulse Ox 57 L 28 H 100 07/21/19 15:30 07/21/19 15:30 07/21/19 15:30 Oxygen Flow Rate (L/min) 15 Oxygen Delivery Method Non-Rebreather Weight: 127.2 kg Body Mass Index (BMI) 45.2 General: Alert, Oriented x3, Cooperative, - - Dyspneic on BiPAP HEENT: PERRLA, EOMI Neck: Supple Lungs: Rhonchi, Wheezes, - - Secretions Cardiovascular: Regular rate Abdomen: Bowel Sounds Present, Soft, Non Tender, Obese Extremities: Edema - 2+ pitting edema bilateral lower extremities, - - AV fistula left forearm with thrill and bruit Skin: No rashes Neurological: Cranial nerves II-XII grossly intact, Muscle tone normal Psych/Mental Status: Normal Affect, Appropriate, Alert and oriented to time, place, person, mood and affect Laboratory Results 07/21/19 15:30: WBC 3.4 L, RBC 3.81 L, Hgb 10.1 L, Hct 34.0 L, MCV 89.2, MCH 26.5 L, MCHC 29.7 L, RDW Std Deviation 53.8 H, RDW Coeff of Andres 16.4 H, Plt Count 129 L, MPV 10.1, Immature Gran % (Auto) 1.200 H, Neut % (Auto) 75.3 H, Lymph % (Auto) 11.6 L, [place] % (Auto) 11.0 H, Eos % (Auto) 0.3, Baso % (Auto) 0.6, Absolute Neuts (auto) 2.5, Absolute Lymphs (auto) 0.39 L, Nucleated RBC % 0, Differential Comment , Diff Path Review January, Platelet Estimate SLT DEC, RBC Morphology N CHROM, Anisocytosis 1+ 07/21/19 15:30: Sodium 141, Potassium 4.5, Chloride 113 H, Carbon Dioxide 19.0 L , Anion Gap 9, BUN 75 H, Creatinine 4.03 H, Est GFR (MDRD) Af Amer 15 L, Est GFR (MDRD) Non-Af 12 L, BUN/Creatinine Ratio 18.6, Glucose 104, Calcium 8.3 L, Phosphorus 6.0 H, Magnesium 1.8, Total Bilirubin 0.50, AST 35, ALT 30, Alkaline Phosphatase 155 H, Troponin I < 0.015, Total Protein 6.4, Albumin 2.4 L, Globulin 4.0, Albumin/Globulin Ratio 0.6 L 07/21/19 15:30: B-Natriuretic Peptide 405.6 H Clinical Impression(s) from Imaging Studies Chest X-Ray 07/21/19 16:50 IMPRESSION: Bilateral perihilar infiltrates suggestive of pulmonary edema. Cardiomegaly. Electronically Signed: Rojas Spence MD at 17:23 EST , Service support , Current Medications Acetaminophen (Tylenol) 650 mg RECTAL Q4H PRN PRN PRN Reason: Pain Score 1-3/Temp > 100.7 F Albuterol/Ipratropium (Duoneb) 3 ml INHALATION Q6H.RT U[facility]ANO Carvedilol (Coreg) 25 mg PO BID [facility] Dextrose (D50w Syringe) 0 gm IV X1 PRN; Protocol PRN Reason: Hypoglycemia Furosemide (Lasix) 80 mg IV Q8 [facility] Glucagon () 1 mg IM .X1 PRN PRN Reason: Hypoglycemia Heparin Sodium (Porcine) (Heparin Na) 5,000 unit SC Q8 [facility] Ceftriaxone Sodium 2 gm/ (Sodium Chloride) 50 mls @ 100 mls/hr IV Q24 [facility] Stop: 07/21/19 17:29 Azithromycin 500 mg/ Dextrose 255 mls @ 250 mls/hr IV X1 ONE Stop: 07/21/19 17:37 Insulin Human Lispro (Humalog Kwikpen (Bkc)) 0 unit SC Q6 [facility]; Protocol Lisinopril (Zestril) 20 mg PO DAILY [facility] Sodium Chloride () 10 - 40 ml IV UD PRN PRN Reason: SALINE FLUSH Assessment/Plan All Active Problems (Last Reviewed 04/03/19 @ 07:40 by Domonique Evangelista) Acute respiratory failure (Acute) Hx of arteriovenostomy for renal dialysis (Acute ~12/2018) Morbid obesity (Acute) Rheumatoid arthritis (Acute) Diabetes mellitus type 2 in obese (Acute) Broken arm (Acute) Obesity (Acute) High cholesterol (Acute) Asthma (Acute) Rheumatoid arthritis (Acute) Kidney failure (Acute) CHF (congestive heart failure) (Acute) EDNA (iron deficiency anemia) (Acute) 1. CKD stage IV appears to have progressed to stage V with underlying diabetic nephropathy with nephrotic range proteinuria. Creatinine at 4.0 on Lasix and VAMSI inhibitor therapy. GFR estimated at 12 cc/minute however last 24 urine in April 2019 showed creatinine clearance of 23 cc/min we will initiate hemodialysis tonight for fluid overload. 2. Acute respiratory failure due to pulmonary edema on BiPAP. Will initiate hemodialysis today with IV Lasix. 3. Diabetes mellitus type 2 primary service management 4. Hypertention with stable blood pressure 5. Anemia hgb stable 6. AVF left forearm use new fistula protocol
[2019-07-21] MEDS: Furosemide 100 MG/10 ML Vial 80 MG IV ×2 (17:39→23:31)
[2019-07-21 17:46] LABS: Allen Test POS; Base Excess -8 mmol/L (-2 to +2); Bicarbonate 18.5 mmol/L (22-26); Blood Gas Specimen Type ART; EPAP 8; FI02 30; IPAP 14; PO2 68 mmHG (75-100); RR 12; SITE R Radial; SO2 91 % (95-99); Time Given 1715; Total Carbon Dioxide 20 mmol/L; pCO2 39.1 mmHg (35-45); pH 7.28 (7.35-7.45)
--- NOTE | 2019-07-21 18:35 | CON.PCM_ITS ---
Reason for Consult Date of Consultation: 07/21/19 Reason for Consultation: Shortness of breath History of Present Illness: The patient is a 58 year old F who presented to [facility] with c/o SOB and oxygen saturations in the mid 70's on RA. She states that she has had increased SOB over the last month but has become acutely worse in the last few days. She c/o chills but no documented fever has been noted. She has a mildly productive cough. She is on chronic immunosuppression (abatacept) for RA and her last dose was about 2 weeks ago. She states that she has chronic edema that is usually worse in the am but has worsened and she has noted that she has gained weight (about 14 kg). She has a fistula in her left upper extremity that is ready for use but she has never required HD in the past. She was admitted to the intensive care unit. Cardiology was called for further evaluation and management. She is specifically denies any chest pain or paroxysmal nocturnal dyspnea though she has had some orthopnea. Past Medical History Allergies/Adverse Reactions: Allergies No Known Allergies Allergy (Verified 04/03/19 07:40) Home Medications: Ambulatory Orders Medication Instructions Recorded abatacept 125 mg/mL subcutaneous 125 mg SC QWEEK 12/03/18 auto-injector albuterol sulfate 90 mcg/actuation 1 inh INHALATION Q4H PRN 12/03/18 breath activated powder inhaler albuterol sulfate HFA 90 1 puff INHALATION Q6H PRN 12/03/18 mcg/actuation aerosol inhaler amlodipine 5 mg tablet 5 mg PO DAILY 12/03/18 atorvastatin 40 mg tablet 40 mg PO DAILY 12/03/18 bumetanide 1 mg tablet 1 mg PO DAILY 12/03/18 carvedilol 25 mg tablet 25 mg PO BID 12/03/18 ergocalciferol (vitamin D2) 50,000 50,000 unit PO QWEEK 12/03/18 unit capsule ferrous sulfate 325 mg (65 mg 325 mg PO TID tab 12/03/18 iron) tablet insulin aspart (U-100) 100 unit/mL 27 unit SC TID 12/03/18 (3 mL) subcutaneous pen insulin degludec (U-100) 100 96 unit SC QHS 12/03/18 unit/mL subcutaneous solution lisinopril 20 mg tablet 20 mg PO DAILY 12/03/18 omeprazole 20 mg capsule,delayed 20 mg PO DAILY 12/03/18 release Past Medical History (Chronic Problems): Chronic Problems (Last Reviewed 04/03/19 @ 07:40 by Domonique Evangelista) Chronic renal failure, stage 4 (severe) (Chronic) HTN (hypertension) (Chronic) Surgical History: - - AV fistula ([place]) 2019 Psychiatric History: No 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 Denies: Chest Discomfort, Orthopnea, PND, Peripheral Edema, Palpitations, Lightheadedness, Dizziness, Near Syncope, Syncope Respiratory: Denies: Cough, Sputum Production, Hemoptysis Gastrointestinal: Denies: Hematemesis, Hematochezia, Melena Genitourinary: Denies: Dysuria, Hematuria Muscoloskeletal: Denies: Myalgias Skin: Denies: Rash Neurological: Denies: Dizziness Psychiatric: Denies: Anxiety Endocrine: Denies: Unexplained Weight Loss Subjectve: Pleasant lady in no distress Objective: Vital Signs Pulse Resp Pulse Ox 60 22 H 93 07/21/19 17:31 07/21/19 17:31 07/21/19 17:31 Oxygen Flow Rate (L/min) 15 Oxygen Delivery Method Non-Rebreather Weight: 280 lb 6.848 oz Body Mass Index (BMI) 45.2 Intake and Output for Last 24 Hours 07/19/19 07/20/19 07/21/19 23:59 23:59 23:59 Intake Total 50 / 50 Balance 50 / 50 General: Awake, Alert, Oriented x 3 HEENT: PERRL, EOMI, Sclera Non Icteric Neck: Supple, Good ROM, No Lymph Node Enlargement Lungs: Clear to auscultation Cardiovascular: Regular Rhythm, Normal S1, Normal S2, No Murmurs, No Rubs, No Gallops Vascular: No Carotid Bruits, Normal Femoral Pulses, Normal Radial Pulses, Normal Dorsalis Pedal Pulse, Normal Posterior Tibial Pulses Abdomen: Bowel Sounds Present, Soft, Non Tender, No HSM, No Organomegaly Extremities: No Cyanosis, No Clubbing, No edema Musculoskeletal: No Erythema Skin: No Rashes Lymphatic: No Lymph Node Enlargement Neurological: No Focal Motor or Sensory Deficit Psych/Mental Status: Appropriate 07/21/19 15:30: WBC 3.4 L, RBC 3.81 L, Hgb 10.1 L, Hct 34.0 L, MCV 89.2, MCH 26.5 L, MCHC 29.7 L, Plt Count 129 L, MPV 10.1, Immature Gran % (Auto) 1.200 H, Neut % (Auto) 75.3 H, Lymph % (Auto) 11.6 L, [place] % (Auto) 11.0 H, Eos % (Auto) 0.3, Baso % (Auto) 0.6, Absolute Neuts (auto) 2.5, Nucleated RBC % 0 07/21/19 15:30: Sodium 141, Potassium 4.5, Chloride 113 H, Carbon Dioxide 19.0 L , Anion Gap 9, BUN 75 H, Creatinine 4.03 H, Est GFR (MDRD) Af Amer 15 L, Est GFR (MDRD) Non-Af 12 L, BUN/Creatinine Ratio 18.6, Glucose 104, Calcium 8.3 L, Phosphorus 6.0 H, Magnesium 1.8, Total Bilirubin 0.50, Troponin I < 0.015 07/21/19 15:30: B-Natriuretic Peptide 405.6 H 07/21/19 17:16: pH 7.28 L, Bicarbonate Actual 18.5 L, POC Total CO2 20, Base Excess -8 L, O2 Saturation 91 L, ABG pCO2 39.1, ABG pO2 68 L, Michael Test POS Rhythm: EKG: ECHO: Stress Test: Cardiac Cath: PCI: CT Surgery: Holter monitor: EPS: PPM: CXR: Chest CT Scan: Assessment/Plan 1. Congestive heart failure * Etiology of the above is likely secondary to hypertensive heart disease as well as progressive renal failure. * Recommendation will be to obtain an echocardiogram to assess her left ventricular function * Intravenous Lasix and dialysis as has been planned * Further recommendations will depend on her response to the above therapy. At some point he may be helpful for her to undergo a pharmacologic myocardial perfusion stress test to exclude ischemia. * 2. Hypertension * Good control continue current medical therapy * Obtain echocardiogram to assess left ventricular function * * Thank you for allowing me to participate in the care of your patient. Please don't hesitate to call if any issues arise
[2019-07-21 18:41] LABS: Bedside Glucose 82 mg/dL (70-110)
[2019-07-21] MEDS: Ipratropium/Albuterol Sulfate 3 ML AMPUL.NEB INHALATION (19:00)
[2019-07-21] MEDS: Lidocaine/Prilocaine HCl 5 GM Tube 1 GM TOPICAL (19:26)
[2019-07-21] MEDS: Nystatin Powder 15gm Bottle 1 APPLIC TOPICAL (22:12)
[2019-07-21] MEDS: Heparin Injection (Vial) 5,000 UNIT/ML VIAL 5000 UNIT SC (22:12)
[2019-07-21] MEDS: Carvedilol 25 MG Tablet PO (23:31)
--- NOTE | 2019-07-21 23:47 | DIALYSIS ---
HD x2.5 hours completed, patient tolerated first dialysis treatment well, accessed via LFA AVF using 17G needles, EMLA cream applied 45 mins before needle placement, UF 2100mL, CritLine ended profile B
[2019-07-22] VITALS (39 sets, daily range): BP systolic 130–173; BP diastolic 52–85; PULSE 62–78; RESP 12–34; TEMP 37.6–38.4; O2SAT 72–98
[2019-07-22 00:06] LABS: Bedside Glucose 71 mg/dL (70-110)
[2019-07-22] MEDS: Acetaminophen 325 MG Tablet 650 MG PO ×2 (02:24→13:41)
[2019-07-22] MEDS: hydrALAZINE 20 MG/ML Vial 10 MG IV ×2 (03:58→11:09)
[2019-07-22] MEDS: 0.9% Saline Lock 10 ML Syringe IV ×4 (03:58→11:10)
[2019-07-22 04:15] LABS: Absolute Lymphocyte Count 0.31 X10^3/uL (0.83-4.51); Absolute Neutrophil Count 3.2 X10^3/uL (2.0-7.7); Basophil# 0.01 X10^3/uL; Basophil% 0.3 % (0-1); Eosinophil# 0.01 X10^3/uL; Eosinophils% 0.3 % (0-5); Hematocrit 30.1 % (37-47); Hemoglobin 9.1 g/dL (12.0-15.0); Lymphocyte # 0.31 X10^3/ul (4.0); Lymphocyte % 7.9 % (19-41); Mean Corp Hgb Conc 30.2 g/dL (32-36); Mean Corpuscular Hgb 26.6 pg (27.0-32.0); Mean Platelet Vol. 10.1 fl (6.2-12.0); Monocyte# 0.38 X10^3/uL; Monocyte% 9.7 % (0-10); NRBC Flagged by Analyzer 0 % (0-5); Neutrophil % 81.3 % (47-70); POSITIVE DIFFERENTIAL YES; Platelet Count 128 K/mm3 (150-450); RBC Distribution Width CV 16.2 % (11.6-14.6); RBC Distribution Width SD 51.9 fl (35.1-43.9); Red Blood Count 3.42 M/mm3 (4.2-5.4); White Blood Count 3.9 K/mm3 (4.4-11.0)
[2019-07-22 04:17] LABS: Differential Indicated SCAN CRITERIA MET
[2019-07-22] MEDS: Dextrose 50%-Water 25 GM/50 ML DISP.SYRIN IV (04:24)
[2019-07-22 04:26] LABS: Bedside Glucose 61 mg/dL (70-110)
[2019-07-22 04:38] LABS: Platelet Estimate SLT DEC (ADEQ)
[2019-07-22 04:39] LABS: Anisocytosis RARE; Hypochromasia 1+; Ovalocyte RARE; Polychromasia RARE
[2019-07-22 04:50] LABS: Bedside Glucose 94 mg/dL (70-110)
[2019-07-22] MEDS: Furosemide 100 MG/10 ML Vial 80 MG IV ×3 (05:22→21:11)
[2019-07-22] MEDS: Heparin Injection (Vial) 5,000 UNIT/ML VIAL 5000 UNIT SC ×3 (05:22→21:11)
[2019-07-22 05:30] LABS: ALB/GLOB Ratio 0.6 RATIO (0.9-2.4); AST(SGOT) 38 U/L (15-37); Alanine Aminotransfer ALT/SGPT 29 U/L (13-56); Albumin, Serum 2.3 g/dL (3.2-5.0); Alkaline Phosphatase 152 U/L (45-117); Anion Gap 10 (5-15); BUN 55 mg/dL (7-18); BUN/Creat Ratio 17.6 RATIO (10-20); Bilirubin, Direct 0.23 mg/dL (0.00-0.30); Chloride 103 mmol/L (98-107); Creatinine, Serum 3.13 mg/dL (0.55-1.02); EST Glomerular Filtration Rate 16 mL/min (>60); Est Glom Filt Rate - Afr Amer 20 mL/min (>60); Estimated Creatinine Clearance 18.12 ml/min; Globulin 3.8 g/dL (2.2-4.2); Glucose 65 mg/dL (74-106); Magnesium 1.6 mg/dL (1.6-2.6); Phosphorus 4.2 mg/dL (2.5-4.9); Potassium 3.6 mmol/L (3.5-5.1); Protein, Total 6.1 g/dL (6.4-8.2); Sodium Level 138 mmol/L (136-145); Thyroid Stim Hormone (TSH) 0.77 uIU/mL (0.358-3.74)
--- NOTE | 2019-07-22 05:55 | RAD_ITS ---
STUDY: X-RAY CHEST REASON FOR EXAM: Female, 58 years old. Dyspnea TECHNIQUE: Single AP portable view of the chest. COMPARISON: 07/21/2019 FINDINGS: Patchy ill-defined airspace opacities are seen in the right and left lungs may represent bilateral pneumonia or pulmonary edema are improved since the previous study. There is no demonstrated pleural abnormality. Normal size heart. Normal mediastinum and alee. Normal visualized pulmonary arteries. Normal visualized aortic arch and descending thoracic aorta. Normal visualized thoracic spine. There is degenerative osteoarthritis of the bilateral shoulders. There is no demonstrated abnormality of the visualized soft tissue structures of the upper abdomen. RAD/Chest 1 View (Portable) IMPRESSION: Patchy ill-defined airspace opacities are seen in the right and left lungs may represent bilateral pneumonia or pulmonary edema are improved since the previous study. Electronically Signed: Silvia Sanchez, at 5:09 EST Tel , Service support ,
--- NOTE | 2019-07-22 06:20 | CON.PCM_ITS ---
Reason for Consult Date of Consultation: 07/22/19 Reason for Consultation: Respiratory failure History of Present Illness: The patient is a 58-year-old female, with a history as outlined below, who presented to the hospital as a transfer of care from an outside hospital emergency department in the setting of acute hypoxemic respiratory failure. The patient initially presented to the outside emergency department with complaints of shortness of breath. The patient does have underlying renal disease, for which she is followed as an outpatient by nephrology. In fact, in December 2018, the patient underwent hemodialysis fistula creation. In addition to the aforementioned, the patient has a known history of rheumatoid arthritis and is on chronic immunosuppression therapy. She also has a reported history of congestive heart failure of unknown severity. The patient does not regularly utilize supplemental oxygen at her baseline. She has never been tested or diagnosed with obstructive sleep apnea before. On presentation to the ICU, the patient was noted to be afebrile and hemodynamically stable. However, she was tachypneic and hypoxemic. The patient was transition from a nonrebreather mask over to a BiPAP upon arrival. Subsequent laboratory evaluation revealed evidence of normocytic anemia with a platelet count of 129,000. Chemistry profile was notable for a bicarbonate of 19 and a creatinine of 4.03. Phosphorus was elevated at 6.0. Troponin was negative. BNP was elevated to 405. Arterial blood gas revealed a pH of 7.28 with a corresponding PCO2 of 39 and PO2 of 68. Plain film chest x-ray revealed evidence of cardiomegaly and bilateral pulmonary edema. Overnight, the patient was diuresed and did undergo hemodialysis for the first time with 2.1 L of fluid removed. This morning, the patient does report overall improvement in her breathing quality. It does appear that she did spike a low- grade fever overnight with a T-max of 101 ?F. The patient did receive doses of ceftriaxone and azithromycin last evening. Past Medical History Past Medical History (Chronic Problems): Chronic Problems (Last Reviewed 04/03/19 @ 07:40 by Domonique Evangelista) Chronic renal failure, stage 4 (severe) (Chronic) HTN (hypertension) (Chronic) Medical History: Medical History (Last Reviewed 04/03/19 @ 07:40 by Domonique Evangelista) Morbid obesity (Acute) E66.01 Rheumatoid arthritis (Acute) M06.9 Diabetes mellitus type 2 in obese (Acute) E11.69, E66.9 Chronic renal failure, stage 4 (severe) (Chronic) N18.4 Obesity (Acute) E66.9 High cholesterol (Acute) E78.00 HTN (hypertension) (Chronic) I10 Asthma (Acute) J45.909 Rheumatoid arthritis (Acute) M06.9 Kidney failure (Acute) N19 CHF (congestive heart failure) (Acute) I50.9 EDNA (iron deficiency anemia) (Acute) D50.9 Allergies No Known Allergies Allergy (Verified 04/03/19 07:40) Home Medications: Ambulatory Orders Medication Instructions Recorded amlodipine 5 mg tablet 10 mg PO DAILY 12/03/18 atorvastatin 40 mg tablet 40 mg PO DAILY 12/03/18 bumetanide 1 mg tablet 1 mg PO DAILY 12/03/18 carvedilol 25 mg tablet 50 mg PO BID 12/03/18 ergocalciferol (vitamin D2) 50,000 50,000 unit PO QWEEK 12/03/18 unit capsule ferrous sulfate 325 mg (65 mg 325 mg PO TID tab 12/03/18 iron) tablet insulin degludec (U-100) 100 96 unit SC QHS 12/03/18 unit/mL subcutaneous solution lisinopril 20 mg tablet 20 mg PO DAILY 12/03/18 omeprazole 20 mg capsule,delayed 20 mg PO DAILY 12/03/18 release Beclomethasone Dipropionate [Qvar 2 puff INHALATION BID 07/22/19 Redihaler] Calcitriol 0.5 mcg PO DAILY 07/22/19 Fluticasone Propionate 2 spry NASAL DAILY 07/22/19 Sevelamer Carbonate 800 mg PO TIDCM 07/22/19 Sodium Bicarbonate 650 mg PO BID 07/22/19 Vit B Comp No.3/Folic/C/Biotin 1 ea PO DAILY 07/22/19 [Nephro-Shubham Rx Tablet] Surgical History: Surgical History (Last Reviewed 04/03/19 @ 07:40 by Domonique Evangelista) Hx of arteriovenostomy for renal dialysis (Acute) Onset Date: ~12/2018 Z99.2 12/26/18 Broken arm (Acute) S42.309A Surgical History: - - AV fistula ([place]) 2018 Psychiatric History: 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 Denies: Chills Eyes: Denies: Blurred vision, Double vision HEENT: Denies: Head Aches, Sinus Congestion, Sinus Drainage Cardiovascular: Denies: Chest Pain, Chest Pressure Respiratory: Reports: Shortness of Breath. Denies: Cough, Sputum production Gastrointestinal: Denies: Abdominal Pain, Nausea, Vomiting Genitourinary: Denies: Dysuria Musculoskeletal: Denies: Joint Pain, Joint Tenderness Skin: Denies: Rash, Wounds Neurological: Denies: Numbness, Tingling, Focal weakness Psychiatric: Denies: Anxiety, Depression, Homicidal Ideations, Suicidal Ideations Hematologic/ Lymphatic: Reports: Anemia Patient Problems: Active and Suspected Problems (Last Reviewed 04/03/19 @ 07:40 by Domonique Evangelista) Acute respiratory failure (Acute) Objective: The patient's most recent lab work, culture data and imaging studies have all been personally reviewed. - Physical Exam Vitals/I&O's: Vital Signs Temp Pulse Resp BP Pulse Ox 99.6 F H 72 93 H 156/66 H 29 07/22/19 06:00 07/22/19 06:00 07/22/19 06:00 07/22/19 06:00 07/22/19 06:00 Oxygen Flow Rate (L/min) 6 Oxygen Delivery Method Nasal Cannula Weight: 276 lb 3.827 oz Body Mass Index (BMI) 45.2 Intake and Output for Last 24 Hours 07/20/19 07/21/19 07/22/19 23:59 23:59 23:59 Intake Total 405 / 405 150 / 150 Output Total 2625 / 2625 750 / 750 Balance -2220 / -2220 -600 / -600 General: Alert, Cooperative, - - Appears comfortable on BiPAP. Morbidly obese. HEENT: Atraumatic, PERRLA, Normocephalic Oral: No Gingival or Mucosal Lesions/ Ulcerations Neck: Supple, No Nodes, Trachea Midline Lungs: No rhonchi, No wheeze, No rales, Diminished Cardiovascular: Regular rate, Regular Rhythm, Normal S1, Normal S2, No murmurs Abdomen: Bowel Sounds Present, Soft, Non Tender, Obese Extremities: No clubbing, No cyanosis, Edema, - - LUE fistula in place Skin: No breakdown Musculoskeletal: No Muscle Wasting Lymphatic: No Cervical, Supraclavicular, or Inguinal Adenopathy Neurological: Cranial nerves II-XII grossly intact, Neuro grossly intact Psych/Mental Status: Alert and oriented to time, place, person, mood and affect Labs (Last 48 Hours) 07/21/19 07/21/19 07/21/19 15:30 15:30 15:30 WBC 3.4 L RBC 3.81 L Hgb 10.1 L Hct 34.0 L MCV 89.2 MCH 26.5 L MCHC 29.7 L RDW Std Deviation 53.8 H RDW Coeff of Andres 16.4 H Plt Count 129 L MPV 10.1 Immature Gran % (Auto) 1.200 H Neut % (Auto) 75.3 H Lymph % (Auto) 11.6 L [place] % (Auto) 11.0 H Eos % (Auto) 0.3 Baso % (Auto) 0.6 Absolute Neuts (auto) 2.5 Absolute Lymphs (auto) 0.39 L Nucleated RBC % 0 Differential Comment Diff Path Review May foll Platelet Estimate SLT DEC RBC Morphology N CHROM Polychromasia Hypochromasia Anisocytosis 1+ Ovalocytes Specimen Type Sample Site pH Bicarbonate Actual POC Total CO2 Base Excess O2 Saturation O2 % ABG pCO2 ABG pO2 Michael Test Respiration Rate O2 Delivery Device EPAP IPAP Blood Gas Notified Whom Blood Gas Notified Time Sodium 141 Potassium 4.5 Chloride 113 H Carbon Dioxide 19.0 L Anion Gap 9 BUN 75 H Creatinine 4.03 H Estim Creat Clear Calc Est GFR (MDRD) Af Amer 15 L Est GFR (MDRD) Non-Af 12 L BUN/Creatinine Ratio 18.6 Glucose 104 Calcium 8.3 L Phosphorus 6.0 H Magnesium 1.8 Total Bilirubin 0.50 Direct Bilirubin AST 35 ALT 30 Alkaline Phosphatase 155 H Troponin I < 0.015 B-Natriuretic Peptide 405.6 H Total Protein 6.4 Albumin 2.4 L Globulin 4.0 Albumin/Globulin Ratio 0.6 L TSH Hep Bs Antigen Hep Bs Antibody Hep B Core Total Ab POC Glucose 07/21/19 07/21/19 07/22/19 17:16 18:30 00:00 WBC RBC Hgb Hct MCV MCH MCHC RDW Std Deviation RDW Coeff of Andres Plt Count MPV Immature Gran % (Auto) Neut % (Auto) Lymph % (Auto) [place] % (Auto) Eos % (Auto) Baso % (Auto) Absolute Neuts (auto) Absolute Lymphs (auto) Nucleated RBC % Differential Comment Diff Path Review Platelet Estimate RBC Morphology Polychromasia Hypochromasia Anisocytosis Ovalocytes Specimen Type ART Sample Site R Radial pH 7.28 L Bicarbonate Actual 18.5 L POC Total CO2 20 Base Excess -8 L O2 Saturation 91 L O2 % 30 ABG pCO2 39.1 ABG pO2 68 L Michael Test POS Respiration Rate 12 O2 Delivery Device Bi / C PAP EPAP 8 IPAP 14 Blood Gas Notified Whom ICU MD Blood Gas Notified Time 1715 Sodium Potassium Chloride Carbon Dioxide Anion Gap BUN Creatinine Estim Creat Clear Calc Est GFR (MDRD) Af Amer Est GFR (MDRD) Non-Af BUN/Creatinine Ratio Glucose Calcium Phosphorus Magnesium Total Bilirubin Direct Bilirubin AST ALT Alkaline Phosphatase Troponin I B-Natriuretic Peptide Total Protein Albumin Globulin Albumin/Globulin Ratio TSH Hep Bs Antigen Hep Bs Antibody Hep B Core Total Ab POC Glucose 82 71 07/22/19 07/22/19 07/22/19 04:00 04:00 04:00 WBC 3.9 L RBC 3.42 L Hgb 9.1 L Hct 30.1 L MCV 88.0 MCH 26.6 L MCHC 30.2 L RDW Std Deviation 51.9 H RDW Coeff of Andres 16.2 H Plt Count 128 L MPV 10.1 Immature Gran % (Auto) 0.500 Neut % (Auto) 81.3 H Lymph % (Auto) 7.9 L [place] % (Auto) 9.7 Eos % (Auto) 0.3 Baso % (Auto) 0.3 Absolute Neuts (auto) 3.2 Absolute Lymphs (auto) 0.31 L Nucleated RBC % 0 Differential Comment SEE COMMENT Diff Path Review Platelet Estimate SLT DEC RBC Morphology Polychromasia RARE Hypochromasia 1+ Anisocytosis RARE Ovalocytes RARE Specimen Type Sample Site pH Bicarbonate Actual POC Total CO2 Base Excess O2 Saturation O2 % ABG pCO2 ABG pO2 Michael Test Respiration Rate O2 Delivery Device EPAP IPAP Blood Gas Notified Whom Blood Gas Notified Time Sodium 138 Potassium 3.6 Chloride 103 Carbon Dioxide 25.0 Anion Gap 10 BUN 55 H Creatinine 3.13 H Estim Creat Clear Calc 18.12 Est GFR (MDRD) Af Amer 20 L Est GFR (MDRD) Non-Af 16 L BUN/Creatinine Ratio 17.6 Glucose 65 L Calcium 8.0 L Phosphorus 4.2 Cancelled Magnesium 1.6 Total Bilirubin 0.40 Direct Bilirubin 0.23 AST 38 H ALT 29 Alkaline Phosphatase 152 H Troponin I B-Natriuretic Peptide Total Protein 6.1 L Albumin 2.3 L Globulin 3.8 Albumin/Globulin Ratio 0.6 L TSH 0.77 Hep Bs Antigen Hep Bs Antibody Hep B Core Total Ab POC Glucose 07/22/19 07/22/19 07/22/19 04:00 04:00 04:00 WBC RBC Hgb Hct MCV MCH MCHC RDW Std Deviation RDW Coeff of Anders Plt Count MPV Immature Gran % (Auto) Neut % (Auto) Lymph % (Auto) [place] % (Auto) Eos % (Auto) Baso % (Auto) Absolute Neuts (auto) Absolute Lymphs (auto) Nucleated RBC % Differential Comment Diff Path Review Platelet Estimate RBC Morphology Polychromasia Hypochromasia Anisocytosis Ovalocytes Specimen Type Sample Site pH Bicarbonate Actual POC Total CO2 Base Excess O2 Saturation O2 % ABG pCO2 ABG pO2 Michael Test Respiration Rate O2 Delivery Device EPAP IPAP Blood Gas Notified Whom Blood Gas Notified Time Sodium Potassium Chloride Carbon Dioxide Anion Gap BUN Creatinine Estim Creat Clear Calc Est GFR (MDRD) Af Amer Est GFR (MDRD) Non-Af BUN/Creatinine Ratio Glucose Calcium Phosphorus Magnesium Total Bilirubin Direct Bilirubin AST ALT Alkaline Phosphatase Troponin I B-Natriuretic Peptide 268.0 H Total Protein Albumin Globulin Albumin/Globulin Ratio TSH Hep Bs Antigen Pending Hep Bs Antibody Pending Hep B Core Total Ab Pending POC Glucose 07/22/19 07/22/19 04:22 04:42 WBC RBC Hgb Hct MCV MCH MCHC RDW Std Deviation RDW Coeff of Andres Plt Count MPV Immature Gran % (Auto) Neut % (Auto) Lymph % (Auto) [place] % (Auto) Eos % (Auto) Baso % (Auto) Absolute Neuts (auto) Absolute Lymphs (auto) Nucleated RBC % Differential Comment Diff Path Review Platelet Estimate RBC Morphology Polychromasia Hypochromasia Anisocytosis Ovalocytes Specimen Type Sample Site pH Bicarbonate Actual POC Total CO2 Base Excess O2 Saturation O2 % ABG pCO2 ABG pO2 Michael Test Respiration Rate O2 Delivery Device EPAP IPAP Blood Gas Notified Whom Blood Gas Notified Time Sodium Potassium Chloride Carbon Dioxide Anion Gap BUN Creatinine Estim Creat Clear Calc Est GFR (MDRD) Af Amer Est GFR (MDRD) Non-Af BUN/Creatinine Ratio Glucose Calcium Phosphorus Magnesium Total Bilirubin Direct Bilirubin AST ALT Alkaline Phosphatase Troponin I B-Natriuretic Peptide Total Protein Albumin Globulin Albumin/Globulin Ratio TSH Hep Bs Antigen Hep Bs Antibody Hep B Core Total Ab POC Glucose 61 L 94 Microbiology 07/21/19 17:55 Urine Catheter - Catheter Streptococcus pneumoniae Antigen (M - Final 07/21/19 17:55 Urine Catheter - Catheter Legionella Antigen - Final 07/21/19 17:15 Mucosa - Nasopharyngeal Influenza Types A,B Direct FA ([facility]ARTA) - Final Clinical Impression(s) from Imaging Studies Chest X-Ray 07/21/19 16:50 IMPRESSION: Bilateral perihilar infiltrates suggestive of pulmonary edema. Cardiomegaly. Electronically Signed: Rojas Spence MD at 17:23 EST , Service support , Chest X-Ray 07/22/19 05:55 IMPRESSION: Patchy ill-defined airspace opacities are seen in the right and left lungs may represent bilateral pneumonia or pulmonary edema are improved since the previous study. Electronically Signed: Silvia Sanchez, at 5:09 EST Tel , Service support , Current Medications Acetaminophen (Tylenol) 650 mg PO Q6H PRN PRN PRN Reason: [id number] Last Admin: 07/22/19 02:24 Dose: 650 mg Documented by: Albuterol/Ipratropium (Duoneb) 3 ml INHALATION Q6H.RT [facility] Last Admin: 07/21/19 19:00 Dose: 3 ml Documented by: Carvedilol (Coreg) 25 mg PO BID [facility] Last Admin: 07/21/19 23:31 Dose: 25 mg Documented by: Dextrose (D50w Syringe) 0 gm IV X1 PRN; Protocol PRN Reason: Hypoglycemia Last Admin: 07/22/19 04:24 Dose: 12.5 gm Documented by: Furosemide (Lasix) 80 mg IV Q8 [facility] Last Admin: 07/22/19 05:22 Dose: 80 mg Documented by: Glucagon () 1 mg IM .X1 PRN PRN Reason: Hypoglycemia Heparin Sodium (Porcine) (Heparin Na) 5,000 unit SC Q8 [facility] Last Admin: 07/22/19 05:22 Dose: 5,000 unit Documented by: Hydralazine HCl (Apresoline Iv) 10 mg IV Q6H PRN PRN PRN Reason: BLOOD PRESSURE Last Admin: 07/22/19 03:58 Dose: 10 mg Documented by: Insulin Human Lispro (Humalog Kwikpen (Bkc)) 0 unit SC Q6 [facility]; Protocol Last Admin: 07/22/19 04:46 Dose: Not Given Documented by: Lisinopril (Zestril) 20 mg PO DAILY [facility] Nystatin (Mycostatin Powder) 1 applic TOPICAL BID [facility]; Protocol Last Admin: 07/21/19 22:12 Dose: 1 applicatio Documented by: Sodium Chloride () 10 - 40 ml IV UD PRN PRN Reason: SALINE FLUSH Last Admin: 07/22/19 04:26 Dose: 20 ml Documented by: Assessment/Plan Active and Suspected Problems (Last Reviewed 04/03/19 @ 07:40 by Domonique Evangelista) Acute respiratory failure (Acute) RECOMMENDATIONS: 1. Continue BiPAP therapy and wean FiO2 to maintain oxygen saturations at or above 90%. If feasible, will transition patient to high flow nasal cannula today. 2. Given the fevers noted overnight in conjunction with the patient's immunosuppressed state, recommend that antimicrobials be restarted. 3. Check respiratory viral panel along with blood and urine cultures. 4. Continue diuretic therapy/hemodialysis support for volume optimization per nephrology recommendations. 5. Await echocardiogram. 6. Continue appropriate DVT prophylaxis. IMPRESSIONS: 1. Acute hypoxemic respiratory failure, likely secondary to Acute on chronic congestive heart failure Likely secondary to volume overloaded state in the setting of possible decompensated heart failure and chronic renal insufficiency. Given that the patient developed a fever overnight, she was started on broad-spectrum antimicrobials, pending infectious work-up as well. Nephrology is following to assist with volume optimization through hemodialysis. The patient will be continued on Lasix as well. Continue BiPAP as ordered and wean FiO2 to maintain an oxygen saturation at or above 90%. Echocardiogram is currently pending. 2. Chronic renal insufficiency Continue volume optimization through hemodialysis and Lasix per nephrology recommendations. 3. History of rheumatoid arthritis on chronic immunosuppression As noted above, given that the patient spiked a fever overnight, broad-spectrum antimicrobials were ordered. These will be continued, pending infectious work- up. 4. Morbid obesity/suspected sleep disordered breathing Complicates care, management, recovery and prognosis. Recommend continuing nocturnal BiPAP therapy while admitted to the hospital. The patient was strongly recommended to follow-up for outpatient polysomnogram. TIME: 40 minutes of critical care time, independent of procedures, was spent addressing the patient's acute hypoxemic respiratory failure, decompensated heart failure, chronic renal insufficiency, questionable sleep disordered breathing, review of all data and collaboration with the care team. ([id number]) Code Visit 9xxxx: [id number] Critical care first hour
[2019-07-22] MEDS: Ipratropium/Albuterol Sulfate 3 ML AMPUL.NEB INHALATION ×2 (06:53→19:45)
--- NOTE | 2019-07-22 07:04 | PN.CARD_ITS ---
Subjectve: Patient seen and evaluated. Appears to be doing better. Underwent dialysis yesterday. Objective: Vital Signs Temp Pulse Resp BP Pulse Ox 99.6 F H 72 93 H 156/66 H 29 07/22/19 06:00 07/22/19 06:00 07/22/19 06:00 07/22/19 06:00 07/22/19 06:00 Oxygen Flow Rate (L/min) 6 Oxygen Delivery Method Nasal Cannula Weight: 276 lb 3.827 oz Body Mass Index (BMI) 45.2 Intake and Output for Last 24 Hours 07/20/19 07/21/19 07/22/19 23:59 23:59 23:59 Intake Total 405 / 405 150 / 150 Output Total 2625 / 2625 750 / 750 Balance -2220 / -2220 -600 / -600 General: Awake, Alert, Oriented x 3 HEENT: PERRL, EOMI, Sclera Non Icteric Neck: Supple, Good ROM, No Lymph Node Enlargement Lungs: Clear to auscultation Cardiovascular: Regular Rhythm, Normal S1, Normal S2, No Murmurs, No Rubs, No Gallops Vascular: No Carotid Bruits, Normal Femoral Pulses, Normal Radial Pulses, Normal Dorsalis Pedal Pulse, Normal Posterior Tibial Pulses Abdomen: Bowel Sounds Present, Soft, Non Tender, No HSM, No Organomegaly Extremities: No Cyanosis, No Clubbing, No edema Musculoskeletal: No Erythema Skin: No Rashes Lymphatic: No Lymph Node Enlargement Neurological: No Focal Motor or Sensory Deficit Psych/Mental Status: Appropriate 07/21/19 15:30: WBC 3.4 L, RBC 3.81 L, Hgb 10.1 L, Hct 34.0 L, MCV 89.2, MCH 26.5 L, MCHC 29.7 L, Plt Count 129 L, MPV 10.1, Immature Gran % (Auto) 1.200 H, Neut % (Auto) 75.3 H, Lymph % (Auto) 11.6 L, Lucas % (Auto) 11.0 H, Eos % (Auto) 0.3, Baso % (Auto) 0.6, Absolute Neuts (auto) 2.5, Nucleated RBC % 0 07/21/19 15:30: Sodium 141, Potassium 4.5, Chloride 113 H, Carbon Dioxide 19.0 L , Anion Gap 9, BUN 75 H, Creatinine 4.03 H, Est GFR (MDRD) Af Amer 15 L, Est GFR (MDRD) Non-Af 12 L, BUN/Creatinine Ratio 18.6, Glucose 104, Calcium 8.3 L, Phosphorus 6.0 H, Magnesium 1.8, Total Bilirubin 0.50, Troponin I < 0.015 07/21/19 15:30: B-Natriuretic Peptide 405.6 H 07/21/19 17:16: pH 7.28 L, Bicarbonate Actual 18.5 L, POC Total CO2 20, Base Excess -8 L, O2 Saturation 91 L, ABG pCO2 39.1, ABG pO2 68 L, Michael Test POS 07/22/19 04:00: Sodium 138, Potassium 3.6, Chloride 103, Carbon Dioxide 25.0, Anion Gap 10, BUN 55 H, Creatinine 3.13 H, Est GFR (MDRD) Af Amer 20 L, Est GFR (MDRD) Non-Af 16 L, BUN/Creatinine Ratio 17.6, Glucose 65 L, Calcium 8.0 L, Phosphorus 4.2, Magnesium 1.6, Total Bilirubin 0.40, Direct Bilirubin 0.23 07/22/19 04:00: WBC 3.9 L, RBC 3.42 L, Hgb 9.1 L, Hct 30.1 L, MCV 88.0, MCH 26.6 L, MCHC 30.2 L, Plt Count 128 L, MPV 10.1, Immature Gran % (Auto) 0.500, Neut % (Auto) 81.3 H, Lymph % (Auto) 7.9 L, Lucas % (Auto) 9.7, Eos % (Auto) 0.3, Baso % (Auto) 0.3, Absolute Neuts (auto) 3.2, Nucleated RBC % 0 07/22/19 04:00: Phosphorus Cancelled 07/22/19 04:00: B-Natriuretic Peptide 268.0 H Rhythm: EKG: ECHO: Stress Test: Cardiac Cath: PCI: CT Surgery: Holter monitor: EPS: PPM: CXR: Chest CT Scan: Medical Necessity - Tobacco Use Smoking Status: Never smoker Tobacco Use: Non-smoker Assessment/Plan 1. Congestive heart failure * Etiology of the above is likely secondary to hypertensive heart disease as well as progressive renal failure. * Recommendation will be to obtain an echocardiogram to assess her left ventricular function * Intravenous Lasix and dialysis as has been planned * Further recommendations will depend on her response to the above therapy. At some point he may be helpful for her to undergo a pharmacologic myocardial perfusion stress test to exclude ischemia. * She does have improvement since yesterday. 2. Hypertension * Suboptimal control continue current medical therapy * Obtain echocardiogram to assess left ventricular function * We will add amlodipine 10 mg a day to current medical regimen * Increase Zestril to 40 mg * Thank you for allowing me to participate in the care of your patient. Please don't hesitate to call if any issues arise
[2019-07-22 09:01] LABS: Hepatitis B Surface Antibody Non-Reactive; Hepatitis B Surface Antigen Non-Reactive (Nonreactive)
[2019-07-22] MEDS: amLODIPine 10 MG Tablet PO (09:33)
[2019-07-22] MEDS: Lisinopril 40 MG Tablet PO (09:33)
[2019-07-22] MEDS: Nystatin Powder 15gm Bottle 1 APPLIC TOPICAL ×2 (09:34→21:11)
[2019-07-22] MEDS: Carvedilol 25 MG Tablet PO (09:35)
--- NOTE | 2019-07-22 09:53 | PCM.PN.HOSP ---
Patient Problems: Active and Suspected Problems (Last Reviewed 04/03/19 @ 07:40 by Domonique Evangelista) Acute respiratory failure (Acute) Subjective: Patient seen and examined. She was admitted with complaint of shortness of breath and is being managed for acute hypoxemic respiratory failure likely due to volume overload from kidney disease. Patient had dialysis yesterday. Cardiology and pulmonology as well as nephrology on board. Patient seen and examined today. She had BiPAP on. She still complained of shortness of breath but denied any chest pain or palpitations, dizziness, diarrhea vomiting. She had dialysis yesterday and is due to have dialysis again today. Started on IV antibiotics on account of suspicion for pneumonia as her temperature spike today. Blood cultures and urine cultures are pending. She had removal of 2.625 L yesterday. Labs and vitals reviewed. Vitals/I&O's: Vital Signs Temp Pulse Resp BP Pulse Ox 100.1 F H 76 24 H 163/66 H 93 07/22/19 08:00 07/22/19 09:00 07/22/19 09:00 07/22/19 09:00 07/22/19 09:00 Oxygen Flow Rate (L/min) 8 Oxygen Delivery Method Nasal Cannula Weight: 276 lb 3.827 oz Body Mass Index (BMI) 45.2 Intake and Output for Last 24 Hours 07/20/19 07/21/19 07/22/19 23:59 23:59 23:59 Intake Total 405 / 405 150 / 150 Output Total 2625 / 2625 750 / 750 Balance -2220 / -2220 -600 / -600 General: Alert, Oriented x3, Cooperative, Lethargic HEENT: Atraumatic, PERRLA, EOMI, Normocephalic Oral: Dry Mucosa Neck: Supple, No JVD, Negative Carotid Bruits Lungs: - - coarse crackles in mid and lower lung zamudio bilaterally. on BIPAP Cardiovascular: Regular rate, Regular Rhythm, Normal S1, Normal S2, No murmurs Abdomen: Bowel Sounds Present, Soft, Non Tender, Non-Distended, No Hepato-splenomegaly Extremities: No clubbing, No cyanosis, Capillary Refill Less than 3 Seconds, - - bipedal 2+ pitting edema Skin: No rashes, No breakdown Musculoskeletal: No Tenderness to Palpation of Joints or Extremities Lymphatic: No Cervical, Supraclavicular, or Inguinal Adenopathy Neurological: Cranial nerves II-XII grossly intact, Neuro grossly intact, Motor Exam 5/5 strength throughout Psych/Mental Status: Normal Affect, Appropriate, Alert and oriented to time, place, person, mood and affect Microbiology Past 72 Hours 07/21/19 17:55 Urine Catheter - Catheter Streptococcus pneumoniae Antigen (M - Final 07/21/19 17:55 Urine Catheter - Catheter Legionella Antigen - Final 07/21/19 17:15 Mucosa - Nasopharyngeal Influenza Types A,B Direct FA ([facility]ARTA) - Final Laboratory Results 07/21/19 15:30: WBC 3.4 L, RBC 3.81 L, Hgb 10.1 L, Hct 34.0 L, MCV 89.2, MCH 26.5 L, MCHC 29.7 L, RDW Std Deviation 53.8 H, RDW Coeff of Andres 16.4 H, Plt Count 129 L, MPV 10.1, Immature Gran % (Auto) 1.200 H, Neut % (Auto) 75.3 H, Lymph % (Auto) 11.6 L, Kendall % (Auto) 11.0 H, Eos % (Auto) 0.3, Baso % (Auto) 0.6, Absolute Neuts (auto) 2.5, Absolute Lymphs (auto) 0.39 L, Nucleated RBC % 0, Differential Comment , Diff Path Review May foll, Platelet Estimate SLT DEC, RBC Morphology N CHROM, Anisocytosis 1+ 07/21/19 15:30: Sodium 141, Potassium 4.5, Chloride 113 H, Carbon Dioxide 19.0 L, Anion Gap 9, BUN 75 H, Creatinine 4.03 H, Est GFR (MDRD) Af Amer 15 L, Est GFR (MDRD) Non-Af 12 L, BUN/Creatinine Ratio 18.6, Glucose 104, Calcium 8.3 L, Phosphorus 6.0 H, Magnesium 1.8, Total Bilirubin 0.50, AST 35, ALT 30, Alkaline Phosphatase 155 H, Troponin I < 0.015, Total Protein 6.4, Albumin 2.4 L, Globulin 4.0, Albumin/Globulin Ratio 0.6 L 07/21/19 15:30: B-Natriuretic Peptide 405.6 H 07/21/19 17:16: Specimen Type ART, Sample Site R Radial, pH 7.28 L, Bicarbonate Actual 18.5 L, POC Total CO2 20, Base Excess -8 L, O2 Saturation 91 L, O2 % 30, ABG pCO2 39.1, ABG pO2 68 L, Michael Test POS, Respiration Rate 12, O2 Delivery Device Bi / C PAP, EPAP 8, IPAP 14, Blood Gas Notified Whom ICU , Blood Gas Notified Time 9097 07/21/19 18:30: POC Glucose 82 07/22/19 00:00: POC Glucose 71 07/22/19 04:00: Sodium 138, Potassium 3.6, Chloride 103, Carbon Dioxide 25.0, Anion Gap 10, BUN 55 H, Creatinine 3.13 H, Estim Creat Clear Calc 18.12, Est GFR (MDRD) Af Amer 20 L, Est GFR (MDRD) Non-Af 16 L, BUN/Creatinine Ratio 17.6, Glucose 65 L, Calcium 8.0 L, Phosphorus 4.2, Magnesium 1.6, Total Bilirubin 0.40, Direct Bilirubin 0.23, AST 38 H, ALT 29, Alkaline Phosphatase 152 H, Total Protein 6.1 L, Albumin 2.3 L, Globulin 3.8, Albumin/Globulin Ratio 0.6 L, TSH 0.77 07/22/19 04:00: WBC 3.9 L, RBC 3.42 L, Hgb 9.1 L, Hct 30.1 L, MCV 88.0, MCH 26.6 L, MCHC 30.2 L, RDW Std Deviation 51.9 H, RDW Coeff of Andres 16.2 H, Plt Count 128 L, MPV 10.1, Immature Gran % (Auto) 0.500, Neut % (Auto) 81.3 H, Lymph % (Auto) 7.9 L, Kendall % (Auto) 9.7, Eos % (Auto) 0.3, Baso % (Auto) 0.3, Absolute Neuts (auto) 3.2, Absolute Lymphs (auto) 0.31 L, Nucleated RBC % 0, Differential Comment SEE COMMENT, Platelet Estimate SLT DEC, Polychromasia RARE, Hypochromasia 1+, Anisocytosis RARE, Ovalocytes RARE 07/22/19 04:00: Phosphorus Cancelled 07/22/19 04:00: B-Natriuretic Peptide 268.0 H 07/22/19 04:00: Hep B Core Total Ab Pending 07/22/19 04:00: Hep Bs Antigen Non-Reactive, Hep Bs Antibody Non-Reactive 07/22/19 04:22: POC Glucose 61 L 07/22/19 04:42: POC Glucose 94 07/22/19 09:30: MRSA (PCR) Pending Diagnostic Data Chest X-Ray 07/22/19 05:55 IMPRESSION: Patchy ill-defined airspace opacities are seen in the right and left lungs may represent bilateral pneumonia or pulmonary edema are improved since the previous study. Electronically Signed: Silvia Sanchez, at 5:09 EST Tel , Service support , Current Medications Acetaminophen (Tylenol) 650 mg PO Q6H PRN PRN PRN Reason: TEMP>101 Last Admin: 07/22/19 02:24 Dose: 650 mg Documented by: Albuterol/Ipratropium (Duoneb) 3 ml INHALATION Q6H.RT [facility] Last Admin: 07/22/19 06:53 Dose: 3 ml Documented by: Amlodipine Besylate (Norvasc) 10 mg PO DAILY [facility] Last Admin: 07/22/19 09:33 Dose: 10 mg Documented by: Carvedilol (Coreg) 25 mg PO BID [facility] Last Admin: 07/22/19 09:35 Dose: 25 mg Documented by: Dextrose (D50w Syringe) 0 gm IV X1 PRN; Protocol PRN Reason: Hypoglycemia Last Admin: 07/22/19 04:24 Dose: 12.5 gm Documented by: Furosemide (Lasix) 80 mg IV Q8 [facility] Last Admin: 07/22/19 05:22 Dose: 80 mg Documented by: Glucagon () 1 mg IM .X1 PRN PRN Reason: Hypoglycemia Heparin Sodium (Porcine) (Heparin Na) 5,000 unit SC Q8 [facility] Last Admin: 07/22/19 05:22 Dose: 5,000 unit Documented by: Hydralazine HCl (Apresoline Iv) 10 mg IV Q6H PRN PRN PRN Reason: BLOOD PRESSURE Last Admin: 07/22/19 03:58 Dose: 10 mg Documented by: Piperacillin Sod/Tazobactam (Sod 3.375 gm/ Sodium Chloride) 50 mls @ 12.5 mls/hr IV Q12 [facility] Vancomycin IV Pharmacy to Dose (1 ea/ Sodium Chloride) 500 mls @ 250 mls/hr IV X1 PRN; Protocol PRN Reason: Rx to Dose Vancomycin HCl 2,000 mg/ (Sodium Chloride) 540 mls @ 250 mls/hr IV X1 ONE Stop: 07/22/19 11:39 Last Admin: 07/22/19 09:33 Dose: 250 mls/hr Documented by: Insulin Human Lispro (Humalog Kwikpen (Bkc)) 0 unit SC Q6 [facility]; Protocol Last Admin: 07/22/19 04:46 Dose: Not Given Documented by: Lisinopril (Zestril) 40 mg PO DAILY [facility] Last Admin: 07/22/19 09:33 Dose: 40 mg Documented by: Nystatin (Mycostatin Powder) 1 applic TOPICAL BID [facility]; Protocol Last Admin: 07/22/19 09:34 Dose: 1 applicatio Documented by: Sodium Chloride () 10 - 40 ml IV UD PRN PRN Reason: SALINE FLUSH Last Admin: 07/22/19 09:33 Dose: 10 ml Documented by: STROKE Vital Signs/Narrative: Vital Signs Temp Pulse Resp BP Pulse Ox 07/22/19 09:00 76 24 H 163/66 H 93 07/22/19 08:00 100.1 F H 76 22 H 155/76 H 95 07/22/19 07:23 67 07/22/19 07:00 66 26 H 163/72 H 94 07/22/19 06:53 72 19 H 98 07/22/19 06:00 99.6 F H 72 93 H 156/66 H 29 Medical Necessity - Tobacco Use Smoking Status: Never smoker Tobacco Use: Non-smoker Assessment/Plan All Active Problems (Last Reviewed 04/03/19 @ 07:40 by Domonique Evangelista) Acute respiratory failure (Acute) Hx of arteriovenostomy for renal dialysis (Acute ~12/2018) Morbid obesity (Acute) Rheumatoid arthritis (Acute) Diabetes mellitus type 2 in obese (Acute) Broken arm (Acute) Obesity (Acute) High cholesterol (Acute) Asthma (Acute) Rheumatoid arthritis (Acute) Kidney failure (Acute) CHF (congestive heart failure) (Acute) EDNA (iron deficiency anemia) (Acute) 1. Acute hypoxic respiratory failure due to fluid overload and acute exacerbation of heart failure still short of breath, and requiring BIPAP remains tachypneic developed a fever overnight, with temperature peaking at 100.1F. started on IV zosyn per pulmo on lasix IV 80mg qhs CXR on admission showed patchy ill-defined airspace opacities in the left and right lungs which may represent bilateral pneumonia or pulmonary edema which look improved since last study. had dialysis yesterday, and is due for dialysis today. Had removal of 2.625L yesterday 2D echo pending cardiology also on board on breathing treatments 2. CKD 4: had fistula placed in E. Had dialysis yesterday and is having it today also. Nephrology on board 3. Acute on chronic CHF exacerbation BNP was 405.6 ; EF unknown, no prevous echo on file cardiology on board on IV lasix 80mg tid 2D echo pending Ef is unknown 4. Hypertension: on coreg and lisinopril as well as amlodipine. BP poorly controlled. Should improved with dialysis. 5. Hyperlipidemia: On statin. 6. Pancytopenia: WBC is 3.9 and hemoglobin is 9.1 with platelets of 128. Will monitor for now. Anemia is chronic but thrombocytopenia and leukopenia are new. Will benefit from follow-up with hematology upon discharge. Iron supplements. 7. History of asthma: Breathing treatments. 8. Rheumatoid arthritis: On abatacept. Last dose was about 2 weeks ago. Follow-up with rheumatology on discharge. 9. Type 2 diabetes mellitus: On insulin degludec 9 6 units nightly. On insulin sliding scale. Accu-Cheks AC at bedtime. VT prophylaxis:heparin Code Visit Inpatient E&M: [id number] [facility] Hosp L3
--- NOTE | 2019-07-22 10:46 | CASEMGMT ---
RN SHAILESH Note: Participated in Interdisciplinary rounds. Pt currently on Bipap. Had fistula prior to admission, but new to hemodialysis. First session on 07.21.19, second session planned for today. Intro role of CM to patient in room. Pt not able to participate in assessment at this time, becomes short of breath attempting to talk with Bipap on. Pt did say she requested [facility] in [place] as her hemodialysis Center if needed on dc. Pt states she can take taxi first few runs, then plans to drive herself. -Ins review under [facility] Choice plan- [facility]. -Admission packet faxed to Ravi @ . Admissions [facility] [facility]) [address] [place] [address] Maura WOODWARDN RN ACM
--- NOTE | 2019-07-22 10:46 | PCM.PN.REN ---
Patient Problems: Active and Suspected Problems (Last Reviewed 04/03/19 @ 07:40 by Domonique Evangelista) Acute respiratory failure (Acute) Subjective: underwent first dialysis treatment last night with AVF. Tolerated 2.1L fluid removal. Urine output good on iv lasix. Remains SOB, on BIPAP with cough. Fever last night, on iv antibx. - Physical Exam Vitals/I&O's: Vital Signs Temp Pulse Resp BP Pulse Ox 100.5 F H 70 29 H 158/71 H 88 07/22/19 10:00 07/22/19 10:00 07/22/19 10:00 07/22/19 10:00 07/22/19 10:00 Oxygen Flow Rate (L/min) 8 Oxygen Delivery Method Bi-pap Weight: 125.3 kg Body Mass Index (BMI) 45.2 Intake and Output for Last 24 Hours 07/20/19 07/21/19 07/22/19 23:59 23:59 23:59 Intake Total 405 / 405 150 / 150 Output Total 2625 / 2625 750 / 750 Balance -2220 / -2220 -600 / -600 General: Alert, Oriented x3, Cooperative, - - tachypneic, dyspneic on BIPAP Oral: Moist Mucosa Lungs: Rhonchi - with secretions, Wheezes Cardiovascular: Regular rate Abdomen: Bowel Sounds Present, Soft, Non Tender, Obese Extremities: Edema - improved, - - AVF left FA with thrill and bruit Skin: No rashes Musculoskeletal: No Muscle Wasting Neurological: Cranial nerves II-XII grossly intact Psych/Mental Status: Normal Affect, Appropriate, Alert and oriented to time, place, person, mood and affect Microbiology Past 72 Hours 07/21/19 17:55 Urine Catheter - Catheter Streptococcus pneumoniae Antigen (M - Final 07/21/19 17:55 Urine Catheter - Catheter Legionella Antigen - Final 07/21/19 17:15 Mucosa - Nasopharyngeal Influenza Types A,B Direct FA ([facility]ARTA) - Final Laboratory Results 07/21/19 15:30: WBC 3.4 L, RBC 3.81 L, Hgb 10.1 L, Hct 34.0 L, MCV 89.2, MCH 26.5 L, MCHC 29.7 L, RDW Std Deviation 53.8 H, RDW Coeff of Andres 16.4 H, Plt Count 129 L, MPV 10.1, Immature Gran % (Auto) 1.200 H, Neut % (Auto) 75.3 H, Lymph % (Auto) 11.6 L, Mcminn % (Auto) 11.0 H, Eos % (Auto) 0.3, Baso % (Auto) 0.6, Absolute Neuts (auto) 2.5, Absolute Lymphs (auto) 0.39 L, Nucleated RBC % 0, Differential Comment , Diff Path Review January, Platelet Estimate SLT DEC, RBC Morphology N CHROM, Anisocytosis 1+ 07/21/19 15:30: Sodium 141, Potassium 4.5, Chloride 113 H, Carbon Dioxide 19.0 L, Anion Gap 9, BUN 75 H, Creatinine 4.03 H, Est GFR (MDRD) Af Amer 15 L, Est GFR (MDRD) Non-Af 12 L, BUN/Creatinine Ratio 18.6, Glucose 104, Calcium 8.3 L, Phosphorus 6.0 H, Magnesium 1.8, Total Bilirubin 0.50, AST 35, ALT 30, Alkaline Phosphatase 155 H, Troponin I < 0.015, Total Protein 6.4, Albumin 2.4 L, Globulin 4.0, Albumin/Globulin Ratio 0.6 L 07/21/19 15:30: B-Natriuretic Peptide 405.6 H 07/21/19 17:16: Specimen Type ART, Sample Site R Radial, pH 7.28 L, Bicarbonate Actual 18.5 L, POC Total CO2 20, Base Excess -8 L, O2 Saturation 91 L, O2 % 30, ABG pCO2 39.1, ABG pO2 68 L, Michael Test POS, Respiration Rate 12, O2 Delivery Device Bi / C PAP, EPAP 8, IPAP 14, Blood Gas Notified Whom ICU , Blood Gas Notified Time 1237 07/21/19 18:30: POC Glucose 82 07/22/19 00:00: POC Glucose 71 07/22/19 04:00: Sodium 138, Potassium 3.6, Chloride 103, Carbon Dioxide 25.0, Anion Gap 10, BUN 55 H, Creatinine 3.13 H, Estim Creat Clear Calc 18.12, Est GFR (MDRD) Af Amer 20 L, Est GFR (MDRD) Non-Af 16 L, BUN/Creatinine Ratio 17.6, Glucose 65 L, Calcium 8.0 L, Phosphorus 4.2, Magnesium 1.6, Total Bilirubin 0.40, Direct Bilirubin 0.23, AST 38 H, ALT 29, Alkaline Phosphatase 152 H, Total Protein 6.1 L, Albumin 2.3 L, Globulin 3.8, Albumin/Globulin Ratio 0.6 L, TSH 0.77 07/22/19 04:00: WBC 3.9 L, RBC 3.42 L, Hgb 9.1 L, Hct 30.1 L, MCV 88.0, MCH 26.6 L, MCHC 30.2 L, RDW Std Deviation 51.9 H, RDW Coeff of Andres 16.2 H, Plt Count 128 L, MPV 10.1, Immature Gran % (Auto) 0.500, Neut % (Auto) 81.3 H, Lymph % (Auto) 7.9 L, Mcminn % (Auto) 9.7, Eos % (Auto) 0.3, Baso % (Auto) 0.3, Absolute Neuts (auto) 3.2, Absolute Lymphs (auto) 0.31 L, Nucleated RBC % 0, Differential Comment SEE COMMENT, Platelet Estimate SLT DEC, Polychromasia RARE, Hypochromasia 1+, Anisocytosis RARE, Ovalocytes RARE 07/22/19 04:00: Phosphorus Cancelled 07/22/19 04:00: B-Natriuretic Peptide 268.0 H 07/22/19 04:00: Hep B Core Total Ab Pending 07/22/19 04:00: Hep Bs Antigen Non-Reactive, Hep Bs Antibody Non-Reactive 07/22/19 04:22: POC Glucose 61 L 07/22/19 04:42: POC Glucose 94 07/22/19 09:30: MRSA (PCR) Pending Clinical Impression(s) from Imaging Studies Chest X-Ray 07/21/19 16:50 IMPRESSION: Bilateral perihilar infiltrates suggestive of pulmonary edema. Cardiomegaly. Electronically Signed: Rojas Spence MD at 17:23 EST , Service support , Chest X-Ray 07/22/19 05:55 IMPRESSION: Patchy ill-defined airspace opacities are seen in the right and left lungs may represent bilateral pneumonia or pulmonary edema are improved since the previous study. Electronically Signed: Silvia Sanchez, at 5:09 EST Tel , Service support , Current Medications Acetaminophen (Tylenol) 650 mg PO Q6H PRN PRN PRN Reason: TEMP>101 Last Admin: 07/22/19 02:24 Dose: 650 mg Documented by: Albuterol/Ipratropium (Duoneb) 3 ml INHALATION Q6H.RT [facility] Last Admin: 07/22/19 06:53 Dose: 3 ml Documented by: Amlodipine Besylate (Norvasc) 10 mg PO DAILY [facility] Last Admin: 07/22/19 09:33 Dose: 10 mg Documented by: Carvedilol (Coreg) 25 mg PO BID [facility] Last Admin: 07/22/19 09:35 Dose: 25 mg Documented by: Dextrose (D50w Syringe) 0 gm IV X1 PRN; Protocol PRN Reason: Hypoglycemia Last Admin: 07/22/19 04:24 Dose: 12.5 gm Documented by: Furosemide (Lasix) 80 mg IV Q8 [facility] Last Admin: 07/22/19 05:22 Dose: 80 mg Documented by: Glucagon () 1 mg IM .X1 PRN PRN Reason: Hypoglycemia Heparin Sodium (Porcine) (Heparin Na) 5,000 unit SC Q8 [facility] Last Admin: 07/22/19 05:22 Dose: 5,000 unit Documented by: Hydralazine HCl (Apresoline Iv) 10 mg IV Q6H PRN PRN PRN Reason: BLOOD PRESSURE Last Admin: 07/22/19 03:58 Dose: 10 mg Documented by: Piperacillin Sod/Tazobactam (Sod 3.375 gm/ Sodium Chloride) 50 mls @ 12.5 mls/hr IV Q12 [facility] Vancomycin IV Pharmacy to Dose (1 ea/ Sodium Chloride) 500 mls @ 250 mls/hr IV X1 PRN; Protocol PRN Reason: Rx to Dose Vancomycin HCl 2,000 mg/ (Sodium Chloride) 540 mls @ 250 mls/hr IV X1 ONE Stop: 07/22/19 11:39 Last Admin: 07/22/19 09:33 Dose: 250 mls/hr Documented by: Insulin Human Lispro (Humalog Kwikpen (Bkc)) 0 unit SC Q6 [facility]; Protocol Last Admin: 07/22/19 04:46 Dose: Not Given Documented by: Lisinopril (Zestril) 40 mg PO DAILY [facility] Last Admin: 07/22/19 09:33 Dose: 40 mg Documented by: Nystatin (Mycostatin Powder) 1 applic TOPICAL BID [facility]; Protocol Last Admin: 07/22/19 09:34 Dose: 1 applicatio Documented by: Sodium Chloride () 10 - 40 ml IV UD PRN PRN Reason: SALINE FLUSH Last Admin: 07/22/19 09:33 Dose: 10 ml Documented by: Medical Necessity - Tobacco Use Smoking Status: Never smoker Tobacco Use: Non-smoker Assessment/Plan All Active Problems (Last Reviewed 04/03/19 @ 07:40 by Domonique Evangelista) Acute respiratory failure (Acute) Hx of arteriovenostomy for renal dialysis (Acute ~12/2018) Morbid obesity (Acute) Rheumatoid arthritis (Acute) Diabetes mellitus type 2 in obese (Acute) Broken arm (Acute) Obesity (Acute) High cholesterol (Acute) Asthma (Acute) Rheumatoid arthritis (Acute) Kidney failure (Acute) CHF (congestive heart failure) (Acute) EDNA (iron deficiency anemia) (Acute) 1. CKD stage IV appears to have progressed to stage V with underlying diabetic nephropathy with nephrotic range proteinuria. HD last night, will arrange dialysis again today with UF. 2. Acute respiratory failure due to pulmonary edema on BiPAP. Continue IV Lasix. UF on dialysis today 3. Diabetes mellitus type 2 primary service management 4. Hypertention stable 5. Anemia hgb stable 6. AVF left forearm use new fistula protocol 7. fever on iv antibx. await cx
[2019-07-22 11:21] LABS: Bedside Glucose 88 mg/dL (70-110)
[2019-07-22 11:22] LABS: M R Staph aureus DNA By PCR Negative (Negative); Probe Check PASS; Specimen Processing Control PASS
[2019-07-22 11:46] LABS: Pathologist Review Reviewed
[2019-07-22 11:48] LABS: Pathologist Review Reviewed
--- NOTE | 2019-07-22 14:40 | PCM.RX.CS ---
Consult Pharmacy has been consulted to manage selected antiobiotic: Vancomycin Type of Consult: New start Suspected Infection: Other Labs: Sodium 138 mmol/L (136-145) 07/22/19 04:00 Potassium 3.6 mmol/L (3.5-5.1) 07/22/19 04:00 Chloride 103 mmol/L (98-107) 07/22/19 04:00 Carbon Dioxide 25.0 mmol/L (21.0-32.0) 07/22/19 04:00 Anion Gap 10 (5-15) 07/22/19 04:00 BUN 55 mg/dL (7-18) H 07/22/19 04:00 Creatinine 3.13 mg/dL (0.55-1.02) H 07/22/19 04:00 Est GFR (MDRD) Af Amer 20 mL/min (>60) L 07/22/19 04:00 Est GFR (MDRD) Non-Af 16 mL/min (>60) L 07/22/19 04:00 BUN/Creatinine Ratio 17.6 RATIO (10-20) 07/22/19 04:00 Glucose 65 mg/dL (74-106) L 07/22/19 04:00 Microbiology: Microbiology 07/22/19 10:55 Mucosa - Nasopharyngeal Respiratory Panel (PCR) - Final Human [place] 07/22/19 08:10 Stool C. difficile DNA Amplification - Final 07/21/19 17:55 Urine Catheter - Catheter Streptococcus pneumoniae Antigen (M - Final 07/21/19 17:55 Urine Catheter - Catheter Legionella Antigen - Final 07/21/19 17:15 Mucosa - Nasopharyngeal Influenza Types A,B Direct FA ([facility]) - Final Weight used for dosin.3 kg Estimated Creatinine Clearance: 18 ML/MIN Goal Trough: 15-20 mcg/mL Pharmacy Plan for Drug Dosing: Give initial loading dose of 2000mg IV x1 (already given at 09:33 this morning). Since the patient is having another dialysis session today after the vancomycin was given, we will schedule a random vancomycin level to be drawn after dialysis tonight and give a supplemental dose if the level is < 20 mg/L. Pharmacy Service will continue to monitor and adjust dosing as required. Follow-Up Labs: Trough Vancomycin - random after dialysis Labs to be done on [date and time ordered]: 07/22/19 20:00 after dialysis
[2019-07-22 17:30] LABS: Bedside Glucose 72 mg/dL (70-110)
--- NOTE | 2019-07-22 18:15 | DIALYSIS ---
Hemodialysis x 3 hours completed. Pt tolerated second tx well. Fluid balance -3500ml. Perry pulled. Hemostasis achieved. Dressing applied. Report given to RIOS Gibbons. Pt stable
[2019-07-22 20:09] LABS: Vancomycin, Random Level 17.6 ug/mL (0.0-15.0)
--- NOTE | 2019-07-22 20:57 | PHA.PHARE_ITS ---
Consult Pharmacy has been consulted to manage selected antiobiotic: Vancomycin Type of Consult: Follow-up Suspected Infection: Other Prior Doses of Antibiotics Received/Current Regimen: Vancomycin 2000mg IV x1 Labs: Sodium 138 mmol/L (136-145) 07/22/19 04:00 Potassium 3.6 mmol/L (3.5-5.1) 07/22/19 04:00 Chloride 103 mmol/L (98-107) 07/22/19 04:00 Carbon Dioxide 25.0 mmol/L (21.0-32.0) 07/22/19 04:00 Anion Gap 10 (5-15) 07/22/19 04:00 BUN 55 mg/dL (7-18) H 07/22/19 04:00 Creatinine 3.13 mg/dL (0.55-1.02) H 07/22/19 04:00 Est GFR (MDRD) Af Amer 20 mL/min (>60) L 07/22/19 04:00 Est GFR (MDRD) Non-Af 16 mL/min (>60) L 07/22/19 04:00 BUN/Creatinine Ratio 17.6 RATIO (10-20) 07/22/19 04:00 Glucose 65 mg/dL (74-106) L 07/22/19 04:00 Random Vancomycin 17.6 ug/mL (0.0-15.0) H 07/22/19 19:20 Microbiology: Microbiology 07/22/19 10:55 Mucosa - Nasopharyngeal Respiratory Panel (PCR) - Final Human [place] 07/22/19 08:10 Stool C. difficile DNA Amplification - Final 07/21/19 17:55 Urine Catheter - Catheter Streptococcus pneumoniae Antigen (M - Final 07/21/19 17:55 Urine Catheter - Catheter Legionella Antigen - Final 07/21/19 17:15 Mucosa - Nasopharyngeal Influenza Types A,B Direct FA ([facility]) - Final Weight used for dosin kg Goal Trough: 15-20 mcg/mL Pharmacy Plan for Drug Dosing: Pt's trough results came back at 17.6. Recommend a x1 dose of Vancomycin 500mg on 07/22/19 at 2130 Pharmacy Service will continue to monitor and adjust dosing as required. Follow-Up Labs: Trough Vancomycin - random level on dialysis days
[2019-07-22] MEDS: Carvedilol 25 MG Tablet 50 MG PO (21:11)
[2019-07-22] MEDS: Vancomycin IV 500 MG/100 ML BAG 100 MG IV (21:29)
[2019-07-23] VITALS (39 sets, daily range): BP systolic 109–168; BP diastolic 56–97; PULSE 64–77; RESP 12–95; TEMP 36.4–38.4; O2SAT 90–100
[2019-07-23] LABS: Bedside Glucose 81 mg/dL (70-110)
[2019-07-23] MEDS: Furosemide 100 MG/10 ML Vial 80 MG IV ×3 (05:16→21:19)
[2019-07-23] MEDS: Heparin Injection (Vial) 5,000 UNIT/ML VIAL 5000 UNIT SC ×3 (05:17→21:19)
[2019-07-23 05:31] LABS: Bedside Glucose 71 mg/dL (70-110)
[2019-07-23 05:37] LABS: Absolute Neutrophil Count 3.1 X10^3/uL (2.0-7.7); Basophil# 0.01 X10^3/uL; Basophil% 0.3 % (0-1); Eosinophil# 0.01 X10^3/uL; Eosinophils% 0.3 % (0-5); Hemoglobin 9.7 g/dL (12.0-15.0); Lymphocyte % 10.4 % (19-41); Mean Corp Hgb Conc 30.3 g/dL (32-36); Mean Corpuscular Hgb 26.4 pg (27.0-32.0); Mean Platelet Vol. 10.2 fl (6.2-12.0); Monocyte# 0.27 X10^3/uL; NRBC Flagged by Analyzer 0 % (0-5); Neutrophil # 3.12 X10^3/uL (2.7-7.7); Neutrophil % 81.2 % (47-70); POSITIVE DIFFERENTIAL YES; Platelet Count 131 K/mm3 (150-450); RBC Distribution Width CV 16.2 % (11.6-14.6); RBC Distribution Width SD 51.7 fl (35.1-43.9); Red Blood Count 3.68 M/mm3 (4.2-5.4); White Blood Count 3.8 K/mm3 (4.4-11.0)
[2019-07-23 05:48] LABS: Anion Gap 9 (5-15); BUN 38 mg/dL (7-18); BUN/Creat Ratio 13.2 RATIO (10-20); Chloride 103 mmol/L (98-107); Creatinine, Serum 2.88 mg/dL (0.55-1.02); EST Glomerular Filtration Rate 18 mL/min (>60); Est Glom Filt Rate - Afr Amer 22 mL/min (>60); Estimated Creatinine Clearance 19.69 ml/min; Glucose 77 mg/dL (74-106); Potassium 3.4 mmol/L (3.5-5.1); Sodium Level 140 mmol/L (136-145)
--- NOTE | 2019-07-23 05:55 | RAD_ITS ---
STUDY: X-RAY CHEST REASON FOR EXAM: Female, 58 years old. Shortness of breath/dyspnea. TECHNIQUE: Single AP portable view of the chest. COMPARISON: Comparison is made with prior examination dated July 22, 2019. FINDINGS: EKG electrodes are seen. The right-sided central venous catheter is seen with the tip in the midportion of the superior vena cava. Persistent bilateral airspace disease in a perihilar distribution. This is suggestive of a pulmonary edema. Improved aeration of the left upper lobe. There is no demonstrated pleural abnormality. Normal size heart. Normal mediastinum and alee. Normal visualized pulmonary arteries. There is atherosclerotic calcification of the aortic arch with tortuosity. There are diffuse degenerative changes of the visualized thoracic spine. Normal visualized ribs, clavicles, and shoulders. There is no demonstrated abnormality of the visualized soft tissue structures of the upper abdomen. RAD/Chest 1 View (Portable) IMPRESSION: Persistent pulmonary edema. Improved aeration of the left upper lobe. Electronically Signed: Wili Kruger, at 10:15 EST , Service support ,
[2019-07-23 06:10] LABS: Vancomycin, Random Level 20.1 ug/mL (0.0-15.0)
[2019-07-23] MEDS: Ipratropium/Albuterol Sulfate 3 ML AMPUL.NEB INHALATION ×3 (06:26→19:15)
--- NOTE | 2019-07-23 06:53 | PN_ITS ---
Subjective: The patient was seen and examined at the bedside this morning. Events from the last 24 hours have been reviewed. The patient is currently febrile with a T-max overnight of 100.9 ?F. The patient remains hemodynamically stable. She remains on BiPAP with an FiO2 requirement of 50%. Overnight, the patient was only able to tolerate a 30-minute break from noninvasive positive pressure ventilatory support before desaturating. She did tolerate dialysis yesterday with 3.5 L of fluid removed. The patient has continued to have diarrhea per nursing report. The patient is currently documented to be overall net -7.2 L for the admission. She does continue to report the presence of a dry, nonproductive cough. Objective: The patient's most recent lab work, culture data and imaging studies have all been personally reviewed. Surface echocardiogram revealed normal LV size and function with an ejection fraction of 55% and stage II diastolic dysfunction. Pulmonary artery systolic pressure was estimated to be 30 mmHg. Strep and urine Legionella antigens were both negative. Blood and urine cultures are pending. C. difficile was negative. Respiratory viral panel was positive for human metapneumovirus. General: Alert, Cooperative, No apparent distress, - - BiPAP mask currently in place HEENT: Atraumatic, PERRLA, Normocephalic Oral: No Gingival or Mucosal Lesions/ Ulcerations Neck: Supple, No Nodes, Trachea Midline Lungs: No rhonchi, No wheeze, Diminished, Rales Cardiovascular: Regular rate, Regular Rhythm, Normal S1, Normal S2, No murmurs Abdomen: Bowel Sounds Present, Soft, Non Tender, Obese Extremities: No clubbing, No cyanosis, Edema, - - Left upper extremity fistula in place Skin: No breakdown Musculoskeletal: No Tenderness to Palpation of Joints or Extremities, No Muscle Wasting Lymphatic: No Cervical, Supraclavicular, or Inguinal Adenopathy Neurological: Cranial nerves II-XII grossly intact, Neuro grossly intact Psych/Mental Status: Normal Affect, Appropriate Vital Signs Temp Pulse Resp BP Pulse Ox 100.1 F H 69 29 H 138/67 H 94 07/23/19 06:00 07/23/19 06:29 07/23/19 06:29 07/23/19 06:00 07/23/19 06:29 Oxygen Flow Rate (L/min) 10 Oxygen Delivery Method Bi-pap Weight: 263 lb 0.183 oz Body Mass Index (BMI) 45.2 Intake and Output for Last 24 Hours 07/21/19 07/22/19 07/23/19 23:59 23:59 23:59 Intake Total 405 / 405 1420 / 1420 425 / 425 Output Total 2625 / 2625 6400 / 6400 500 / 500 Balance -2220 / -2220 -4980 / -4980 -75 / -75 Labs (Last 48 Hours) 07/21/19 07/21/19 07/21/19 15:30 15:30 15:30 WBC 3.4 L RBC 3.81 L Hgb 10.1 L Hct 34.0 L MCV 89.2 MCH 26.5 L MCHC 29.7 L RDW Std Deviation 53.8 H RDW Coeff of Andres 16.4 H Plt Count 129 L MPV 10.1 Immature Gran % (Auto) 1.200 H Neut % (Auto) 75.3 H Lymph % (Auto) 11.6 L [place] % (Auto) 11.0 H Eos % (Auto) 0.3 Baso % (Auto) 0.6 Absolute Neuts (auto) 2.5 Absolute Lymphs (auto) 0.39 L Nucleated RBC % 0 Differential Comment Diff Path Review Reviewed Platelet Estimate SLT DEC RBC Morphology N CHROM Polychromasia Hypochromasia Anisocytosis 1+ Ovalocytes Specimen Type Sample Site pH Bicarbonate Actual POC Total CO2 Base Excess O2 Saturation O2 % ABG pCO2 ABG pO2 Michael Test Respiration Rate O2 Delivery Device EPAP IPAP Blood Gas Notified Whom Blood Gas Notified Time Sodium 141 Potassium 4.5 Chloride 113 H Carbon Dioxide 19.0 L Anion Gap 9 BUN 75 H Creatinine 4.03 H Estim Creat Clear Calc Est GFR (MDRD) Af Amer 15 L Est GFR (MDRD) Non-Af 12 L BUN/Creatinine Ratio 18.6 Glucose 104 Calcium 8.3 L Phosphorus 6.0 H Magnesium 1.8 Total Bilirubin 0.50 Direct Bilirubin AST 35 ALT 30 Alkaline Phosphatase 155 H Troponin I < 0.015 B-Natriuretic Peptide 405.6 H Total Protein 6.4 Albumin 2.4 L Globulin 4.0 Albumin/Globulin Ratio 0.6 L TSH Random Vancomycin Hep Bs Antigen Hep Bs Antibody Hep B Core Total Ab MRSA (PCR) POC Glucose 07/21/19 07/21/19 07/22/19 17:16 18:30 00:00 WBC RBC Hgb Hct MCV MCH MCHC RDW Std Deviation RDW Coeff of Andres Plt Count MPV Immature Gran % (Auto) Neut % (Auto) Lymph % (Auto) [place] % (Auto) Eos % (Auto) Baso % (Auto) Absolute Neuts (auto) Absolute Lymphs (auto) Nucleated RBC % Differential Comment Diff Path Review Platelet Estimate RBC Morphology Polychromasia Hypochromasia Anisocytosis Ovalocytes Specimen Type ART Sample Site R Radial pH 7.28 L Bicarbonate Actual 18.5 L POC Total CO2 20 Base Excess -8 L O2 Saturation 91 L O2 % 30 ABG pCO2 39.1 ABG pO2 68 L Michael Test POS Respiration Rate 12 O2 Delivery Device Bi / C PAP EPAP 8 IPAP 14 Blood Gas Notified Whom ICU MD Blood Gas Notified Time 1715 Sodium Potassium Chloride Carbon Dioxide Anion Gap BUN Creatinine Estim Creat Clear Calc Est GFR (MDRD) Af Amer Est GFR (MDRD) Non-Af BUN/Creatinine Ratio Glucose Calcium Phosphorus Magnesium Total Bilirubin Direct Bilirubin AST ALT Alkaline Phosphatase Troponin I B-Natriuretic Peptide Total Protein Albumin Globulin Albumin/Globulin Ratio TSH Random Vancomycin Hep Bs Antigen Hep Bs Antibody Hep B Core Total Ab MRSA (PCR) POC Glucose 82 71 07/22/19 07/22/19 07/22/19 04:00 04:00 04:00 WBC 3.9 L RBC 3.42 L Hgb 9.1 L Hct 30.1 L MCV 88.0 MCH 26.6 L MCHC 30.2 L RDW Std Deviation 51.9 H RDW Coeff of Andres 16.2 H Plt Count 128 L MPV 10.1 Immature Gran % (Auto) 0.500 Neut % (Auto) 81.3 H Lymph % (Auto) 7.9 L [place] % (Auto) 9.7 Eos % (Auto) 0.3 Baso % (Auto) 0.3 Absolute Neuts (auto) 3.2 Absolute Lymphs (auto) 0.31 L Nucleated RBC % 0 Differential Comment SEE COMMENT Diff Path Review Reviewed Platelet Estimate SLT DEC RBC Morphology Polychromasia RARE Hypochromasia 1+ Anisocytosis RARE Ovalocytes RARE Specimen Type Sample Site pH Bicarbonate Actual POC Total CO2 Base Excess O2 Saturation O2 % ABG pCO2 ABG pO2 Michael Test Respiration Rate O2 Delivery Device EPAP IPAP Blood Gas Notified Whom Blood Gas Notified Time Sodium 138 Potassium 3.6 Chloride 103 Carbon Dioxide 25.0 Anion Gap 10 BUN 55 H Creatinine 3.13 H Estim Creat Clear Calc 18.12 Est GFR (MDRD) Af Amer 20 L Est GFR (MDRD) Non-Af 16 L BUN/Creatinine Ratio 17.6 Glucose 65 L Calcium 8.0 L Phosphorus 4.2 Cancelled Magnesium 1.6 Total Bilirubin 0.40 Direct Bilirubin 0.23 AST 38 H ALT 29 Alkaline Phosphatase 152 H Troponin I B-Natriuretic Peptide Total Protein 6.1 L Albumin 2.3 L Globulin 3.8 Albumin/Globulin Ratio 0.6 L TSH 0.77 Random Vancomycin Hep Bs Antigen Hep Bs Antibody Hep B Core Total Ab MRSA (PCR) POC Glucose 07/22/19 07/22/19 07/22/19 04:00 04:00 04:00 WBC RBC Hgb Hct MCV MCH MCHC RDW Std Deviation RDW Coeff of Andres Plt Count MPV Immature Gran % (Auto) Neut % (Auto) Lymph % (Auto) [place] % (Auto) Eos % (Auto) Baso % (Auto) Absolute Neuts (auto) Absolute Lymphs (auto) Nucleated RBC % Differential Comment Diff Path Review Platelet Estimate RBC Morphology Polychromasia Hypochromasia Anisocytosis Ovalocytes Specimen Type Sample Site pH Bicarbonate Actual POC Total CO2 Base Excess O2 Saturation O2 % ABG pCO2 ABG pO2 Michael Test Respiration Rate O2 Delivery Device EPAP IPAP Blood Gas Notified Whom Blood Gas Notified Time Sodium Potassium Chloride Carbon Dioxide Anion Gap BUN Creatinine Estim Creat Clear Calc Est GFR (MDRD) Af Amer Est GFR (MDRD) Non-Af BUN/Creatinine Ratio Glucose Calcium Phosphorus Magnesium Total Bilirubin Direct Bilirubin AST ALT Alkaline Phosphatase Troponin I B-Natriuretic Peptide 268.0 H Total Protein Albumin Globulin Albumin/Globulin Ratio TSH Random Vancomycin Hep Bs Antigen Non-Reactive Hep Bs Antibody Non-Reactive Hep B Core Total Ab Pending MRSA (PCR) POC Glucose 07/22/19 07/22/19 07/22/19 04:22 04:42 09:30 WBC RBC Hgb Hct MCV MCH MCHC RDW Std Deviation RDW Coeff of Andres Plt Count MPV Immature Gran % (Auto) Neut % (Auto) Lymph % (Auto) [place] % (Auto) Eos % (Auto) Baso % (Auto) Absolute Neuts (auto) Absolute Lymphs (auto) Nucleated RBC % Differential Comment Diff Path Review Platelet Estimate RBC Morphology Polychromasia Hypochromasia Anisocytosis Ovalocytes Specimen Type Sample Site pH Bicarbonate Actual POC Total CO2 Base Excess O2 Saturation O2 % ABG pCO2 ABG pO2 Michael Test Respiration Rate O2 Delivery Device EPAP IPAP Blood Gas Notified Whom Blood Gas Notified Time Sodium Potassium Chloride Carbon Dioxide Anion Gap BUN Creatinine Estim Creat Clear Calc Est GFR (MDRD) Af Amer Est GFR (MDRD) Non-Af BUN/Creatinine Ratio Glucose Calcium Phosphorus Magnesium Total Bilirubin Direct Bilirubin AST ALT Alkaline Phosphatase Troponin I B-Natriuretic Peptide Total Protein Albumin Globulin Albumin/Globulin Ratio TSH Random Vancomycin Hep Bs Antigen Hep Bs Antibody Hep B Core Total Ab MRSA (PCR) Negative POC Glucose 61 L 94 07/22/19 07/22/19 07/22/19 11:01 17:20 19:20 WBC RBC Hgb Hct MCV MCH MCHC RDW Std Deviation RDW Coeff of Andres Plt Count MPV Immature Gran % (Auto) Neut % (Auto) Lymph % (Auto) [place] % (Auto) Eos % (Auto) Baso % (Auto) Absolute Neuts (auto) Absolute Lymphs (auto) Nucleated RBC % Differential Comment Diff Path Review Platelet Estimate RBC Morphology Polychromasia Hypochromasia Anisocytosis Ovalocytes Specimen Type Sample Site pH Bicarbonate Actual POC Total CO2 Base Excess O2 Saturation O2 % ABG pCO2 ABG pO2 Michael Test Respiration Rate O2 Delivery Device EPAP IPAP Blood Gas Notified Whom Blood Gas Notified Time Sodium Potassium Chloride Carbon Dioxide Anion Gap BUN Creatinine Estim Creat Clear Calc Est GFR (MDRD) Af Amer Est GFR (MDRD) Non-Af BUN/Creatinine Ratio Glucose Calcium Phosphorus Magnesium Total Bilirubin Direct Bilirubin AST ALT Alkaline Phosphatase Troponin I B-Natriuretic Peptide Total Protein Albumin Globulin Albumin/Globulin Ratio TSH Random Vancomycin 17.6 H Hep Bs Antigen Hep Bs Antibody Hep B Core Total Ab MRSA (PCR) POC Glucose 88 72 07/22/19 07/23/19 07/23/19 23:55 05:12 05:20 WBC Pending RBC Pending Hgb Pending Hct Pending MCV Pending MCH Pending MCHC Pending RDW Std Deviation Pending RDW Coeff of Andres Pending Plt Count Pending MPV Immature Gran % (Auto) Neut % (Auto) Pending Lymph % (Auto) [place] % (Auto) Eos % (Auto) Baso % (Auto) Absolute Neuts (auto) Pending Absolute Lymphs (auto) Nucleated RBC % Differential Comment Diff Path Review Platelet Estimate RBC Morphology Polychromasia Hypochromasia Anisocytosis Ovalocytes Specimen Type Sample Site pH Bicarbonate Actual POC Total CO2 Base Excess O2 Saturation O2 % ABG pCO2 ABG pO2 Michael Test Respiration Rate O2 Delivery Device EPAP IPAP Blood Gas Notified Whom Blood Gas Notified Time Sodium Potassium Chloride Carbon Dioxide Anion Gap BUN Creatinine Estim Creat Clear Calc Est GFR (MDRD) Af Amer Est GFR (MDRD) Non-Af BUN/Creatinine Ratio Glucose Calcium Phosphorus Magnesium Total Bilirubin Direct Bilirubin AST ALT Alkaline Phosphatase Troponin I B-Natriuretic Peptide Total Protein Albumin Globulin Albumin/Globulin Ratio TSH Random Vancomycin Hep Bs Antigen Hep Bs Antibody Hep B Core Total Ab MRSA (PCR) POC Glucose 81 71 07/23/19 07/23/19 05:20 05:20 WBC RBC Hgb Hct MCV MCH MCHC RDW Std Deviation RDW Coeff of Andres Plt Count MPV Immature Gran % (Auto) Neut % (Auto) Lymph % (Auto) [place] % (Auto) Eos % (Auto) Baso % (Auto) Absolute Neuts (auto) Absolute Lymphs (auto) Nucleated RBC % Differential Comment Diff Path Review Platelet Estimate RBC Morphology Polychromasia Hypochromasia Anisocytosis Ovalocytes Specimen Type Sample Site pH Bicarbonate Actual POC Total CO2 Base Excess O2 Saturation O2 % ABG pCO2 ABG pO2 Michael Test Respiration Rate O2 Delivery Device EPAP IPAP Blood Gas Notified Whom Blood Gas Notified Time Sodium 140 Potassium 3.4 L Chloride 103 Carbon Dioxide 28.0 Anion Gap 9 BUN 38 H Creatinine 2.88 H Estim Creat Clear Calc 19.69 Est GFR (MDRD) Af Amer 22 L Est GFR (MDRD) Non-Af 18 L BUN/Creatinine Ratio 13.2 Glucose 77 Calcium 8.0 L Phosphorus Magnesium Total Bilirubin Direct Bilirubin AST ALT Alkaline Phosphatase Troponin I B-Natriuretic Peptide Total Protein Albumin Globulin Albumin/Globulin Ratio TSH Random Vancomycin 20.1 H Hep Bs Antigen Hep Bs Antibody Hep B Core Total Ab MRSA (PCR) POC Glucose Microbiology 07/22/19 10:55 Mucosa - Nasopharyngeal Respiratory Panel (PCR) - Final Human [place] 07/22/19 08:10 Stool C. difficile DNA Amplification - Final 07/21/19 17:55 Urine Catheter - Catheter Streptococcus pneumoniae Antigen (M - Final 07/21/19 17:55 Urine Catheter - Catheter Legionella Antigen - Final 07/21/19 17:15 Mucosa - Nasopharyngeal Influenza Types A,B Direct FA (MARTA) - Final Clinical Impression(s) from Imaging Studies Chest X-Ray 07/21/19 16:50 IMPRESSION: Bilateral perihilar infiltrates suggestive of pulmonary edema. Cardiomegaly. Electronically Signed: Rojas Spence MD at 17:23 EST , Service support , Chest X-Ray 07/22/19 05:55 IMPRESSION: Patchy ill-defined airspace opacities are seen in the right and left lungs may represent bilateral pneumonia or pulmonary edema are improved since the previous study. Electronically Signed: Vega Daniel, at 5:09 EST Tel , Service support , Medical Necessity - Tobacco Use Smoking Status: Never smoker Tobacco Use: Non-smoker Assessment/Plan All Active Problems (Last Reviewed 04/03/19 @ 07:40 by Domonique Evangelista) Acute respiratory failure (Acute) Hx of arteriovenostomy for renal dialysis (Acute ~12/2018) Morbid obesity (Acute) Rheumatoid arthritis (Acute) Diabetes mellitus type 2 in obese (Acute) Broken arm (Acute) Obesity (Acute) High cholesterol (Acute) Asthma (Acute) Rheumatoid arthritis (Acute) Kidney failure (Acute) CHF (congestive heart failure) (Acute) EDNA (iron deficiency anemia) (Acute) RECOMMENDATIONS: 1. Continue scheduled Lasix and dialysis support per nephrology recommendations. 2. MRSA screen was negative. Will discontinue vancomycin, with plans to continue Zosyn. 3. Breaks from BiPAP as tolerated. Wean oxygen to maintain saturations at or above 90%. 4. Continue BiPAP, at a minimum, with naps and nightly. 5. Potassium repletion. IMPRESSIONS: 1. Acute hypoxemic respiratory failure, likely secondary to Acute on chronic congestive heart failure Likely secondary to volume overloaded state in the setting of possible decompensated heart failure and chronic renal insufficiency. The patient has been maintained on empiric antimicrobials, given fevers noted during hospitalization. However, the patient was noted to be positive for human metapneumovirus on her respiratory viral panel. If her infectious work-up remains negative tomorrow, antimicrobials will be discontinued. Nephrology is following to assist with volume optimization through hemodialysis. The patient will be continued on Lasix as well. Continue BiPAP as ordered and wean FiO2 to maintain an oxygen saturation at or above 90%. 2. Chronic renal insufficiency Continue volume optimization through hemodialysis and Lasix per nephrology recommendations. 3. Morbid obesity/suspected sleep disordered breathing/history of rheumatoid arthritis on chronic immunosuppression Complicates care, management, recovery and prognosis. Recommend continuing nocturnal BiPAP therapy while admitted to the hospital. The patient was strongly recommended to follow-up for outpatient polysomnogram. TIME: 39 minutes of critical care time, independent of procedures, was spent addressing the patient's acute hypoxemic respiratory failure, decompensated heart failure, chronic renal insufficiency, questionable sleep disordered breathing, review of all data and collaboration with the care team. ([id number]) Code Visit [id number]: [id number] Critical care first hour
[2019-07-23 07:10] LABS: Differential Indicated SCAN CRITERIA MET
--- NOTE | 2019-07-23 07:43 | CPS ---
patient on 10 lpm high flow nc.
--- NOTE | 2019-07-23 09:42 | PN_ITS ---
Patient Problems: Active and Suspected Problems (Last Reviewed 04/03/19 @ 07:40 by Domonique Evangelista) Acute respiratory failure (Acute) Subjective: Patient seen and examined. She states she feels better and shortness of breath has improved. She still does have a cough which is productive sputum. She does complain of diarrhea which started overnight. C. difficile screen was negative. She is on 10 L of oxygen by nasal cannula. Labs and vitals reviewed. Still remains febrile and temperature was 99.9 Fahrenheit this morning. Respiratory panel was positive for human metapneumovirus. Vitals/I&O's: Vital Signs Temp Pulse Resp BP Pulse Ox 99.9 F H 74 16 151/56 H 93 07/23/19 08:00 07/23/19 09:00 07/23/19 09:00 07/23/19 09:00 07/23/19 09:00 Oxygen Flow Rate (L/min) 10 Oxygen Delivery Method Room Air Weight: 263 lb 0.183 oz Body Mass Index (BMI) 45.2 Intake and Output for Last 24 Hours 07/21/19 07/22/19 07/23/19 23:59 23:59 23:59 Intake Total 405 / 405 1420 / 1420 425 / 425 Output Total 2625 / 2625 6400 / 6400 500 / 500 Balance -2220 / -2220 -4980 / -4980 -75 / -75 General: Alert, Oriented x3, Cooperative, Lethargic HEENT: Atraumatic, PERRLA, EOMI, Normocephalic Oral: Dry Mucosa Neck: Supple, No JVD, Negative Carotid Bruits Lungs: - - coarse crackles in mid and lower lung zamudio bilaterally. on 10L of oxygen Cardiovascular: Regular rate, Regular Rhythm, Normal S1, Normal S2, No murmurs Abdomen: Bowel Sounds Present, Soft, Non Tender, Non-Distended, No Hepato- splenomegaly Extremities: No clubbing, No cyanosis, Capillary Refill Less than 3 Seconds, - - bipedal 1+ pitting edema; edema has improved Skin: No rashes, No breakdown Musculoskeletal: No Tenderness to Palpation of Joints or Extremities Lymphatic: No Cervical, Supraclavicular, or Inguinal Adenopathy Neurological: Cranial nerves II-XII grossly intact, Neuro grossly intact, Motor Exam 5/5 strength throughout Psych/Mental Status: Normal Affect, Appropriate, Alert and oriented to time, place, person, mood and affect Microbiology Past 72 Hours 07/23/19 08:45 Stool Stool Lactoferrin - Final 07/22/19 10:55 Mucosa - Nasopharyngeal Respiratory Panel (PCR) - Final Human [place] 07/22/19 08:10 Stool C. difficile DNA Amplification - Final 07/21/19 17:55 Urine Catheter - Catheter Streptococcus pneumoniae Antigen (M - Final 07/21/19 17:55 Urine Catheter - Catheter Legionella Antigen - Final 07/21/19 17:15 Mucosa - Nasopharyngeal Influenza Types A,B Direct FA (MARTA) - Final Laboratory Results 07/21/19 15:30: Diff Path Review Reviewed 07/22/19 04:00: Diff Path Review Reviewed 07/22/19 09:30: MRSA (PCR) Negative 07/22/19 11:01: POC Glucose 88 07/22/19 17:20: POC Glucose 72 07/22/19 19:20: Random Vancomycin 17.6 H 07/22/19 23:55: POC Glucose 81 07/23/19 05:12: POC Glucose 71 07/23/19 05:20: WBC 3.8 L, RBC 3.68 L, Hgb 9.7 L, Hct 32.0 L, MCV 87.0, MCH 26.4 L, MCHC 30.3 L, RDW Std Deviation 51.7 H, RDW Coeff of Andres 16.2 H, Plt Count 131 L, MPV 10.2, Immature Gran % (Auto) 0.800, Neut % (Auto) 81.2 H, Lymph % (Auto) 10.4 L, [place] % (Auto) 7.0, Eos % (Auto) 0.3, Baso % (Auto) 0.3, Absolute Neuts (auto) 3.1, Absolute Lymphs (auto) 0.40 L, Nucleated RBC % 0, Diff Path Review May 07/23/19 05:20: Sodium 140, Potassium 3.4 L, Chloride 103, Carbon Dioxide 28.0, Anion Gap 9, BUN 38 H, Creatinine 2.88 H, Estim Creat Clear Calc 19.69, Est GFR (MDRD) Af Amer 22 L, Est GFR (MDRD) Non-Af 18 L, BUN/Creatinine Ratio 13.2, Glucose 77, Calcium 8.0 L 07/23/19 05:20: Random Vancomycin 20.1 H Current Medications Acetaminophen (Tylenol) 650 mg PO Q6H PRN PRN PRN Reason: TEMP>101 Last Admin: 07/22/19 13:41 Dose: 650 mg Documented by: Albuterol/Ipratropium (Duoneb) 3 ml INHALATION Q6HWA.RT [facility] Last Admin: 07/23/19 06:26 Dose: 3 ml Documented by: Amlodipine Besylate (Norvasc) 10 mg PO DAILY [facility] Last Admin: 07/22/19 09:33 Dose: 10 mg Documented by: Carvedilol (Coreg) 50 mg PO BID [facility] Last Admin: 07/22/19 21:11 Dose: 50 mg Documented by: Dextrose (D50w Syringe) 0 gm IV X1 PRN; Protocol PRN Reason: Hypoglycemia Last Admin: 07/22/19 04:24 Dose: 12.5 gm Documented by: Furosemide (Lasix) 80 mg IV Q8 [facility] Last Admin: 07/23/19 05:16 Dose: 80 mg Documented by: Glucagon () 1 mg IM .X1 PRN PRN Reason: Hypoglycemia Heparin Sodium (Porcine) (Heparin Na) 5,000 unit SC Q8 [facility] Last Admin: 07/23/19 05:17 Dose: 5,000 unit Documented by: Hydralazine HCl (Apresoline Iv) 10 mg IV Q6H PRN PRN PRN Reason: BLOOD PRESSURE Last Admin: 07/22/19 11:09 Dose: 10 mg Documented by: Piperacillin Sod/Tazobactam (Sod 3.375 gm/ Sodium Chloride) 50 mls @ 12.5 mls/hr IV Q12 [facility] Last Infusion: 07/23/19 02:16 Dose: Infused Documented by: Insulin Human Lispro (Humalog Kwikpen (Bkc)) 0 unit SC Q6 [facility]; Protocol Last Admin: 07/23/19 05:17 Dose: Not Given Documented by: Lisinopril (Zestril) 40 mg PO DAILY [facility] Last Admin: 07/22/19 09:33 Dose: 40 mg Documented by: Loperamide HCl (Imodium) 2 mg PO Q4H PRN PRN PRN Reason: diarrhea Nystatin (Mycostatin Powder) 1 applic TOPICAL BID [facility]; Protocol Last Admin: 07/22/19 21:11 Dose: 1 applicatio Documented by: Sodium Chloride () 10 - 40 ml IV UD PRN PRN Reason: SALINE FLUSH Last Admin: 07/22/19 11:10 Dose: 10 ml Documented by: STROKE Vital Signs/Narrative: Vital Signs Temp Pulse Resp BP Pulse Ox 07/23/19 09:00 74 16 151/56 H 93 07/23/19 08:40 91 07/23/19 08:00 99.9 F H 73 18 112/56 L 91 07/23/19 07:42 93 07/23/19 07:21 76 07/23/19 07:00 70 33 H 129/65 H 91 07/23/19 06:29 69 29 H 94 07/23/19 06:00 100.1 F H 68 32 H 138/67 H 94 Medical Necessity - Tobacco Use Smoking Status: Never smoker Tobacco Use: Non-smoker Assessment/Plan All Active Problems (Last Reviewed 04/03/19 @ 07:40 by Domonique Evangelista) Acute respiratory failure (Acute) Hx of arteriovenostomy for renal dialysis (Acute ~12/2018) Morbid obesity (Acute) Rheumatoid arthritis (Acute) Diabetes mellitus type 2 in obese (Acute) Broken arm (Acute) Obesity (Acute) High cholesterol (Acute) Asthma (Acute) Rheumatoid arthritis (Acute) Kidney failure (Acute) CHF (congestive heart failure) (Acute) EDNA (iron deficiency anemia) (Acute) 1. Acute hypoxic respiratory failure due to fluid overload and acute exacerbation of heart failure as well as community acquired pneumonia * now on 10L of oxygen; tachypnea has resolved * still remains febrile * 2D echo: EF of 55%, with stage 2 diastolic dysfunction, mildly dilated RV and PA pressure of 30mmHg. LVSF is normal * continue iV lasix 80mg qhs * cardiology and nephrology as well as pulmonology on board * had dialysis with removal of 3.5L yesterday; weight has gone down from 280 pounds on admission to 263 pounds today * continue breathing treatments and steroids * 2. CKD 4: * fistula in LUE; and now has fluid overload, so is having dialysis * Nephrology on board 3. Acute on chronic heart failure with reduced EF * BNP was 405.6 ; * cardiology on board * on IV lasix 80mg tid * 2D echo as under 1, with EF of 55% * 4. diarrhea: started having nonbloody diarrhea overnight. C Diff was negative. Enteric pathogen pending. Start loperamide 5. Hypertension: on coreg and lisinopril as well as amlodipine. BP poorly controlled. Should improved with dialysis. 6. Hyperlipidemia: On statin. 7. Pancytopenia: * WBC is 3.8 and hemoglobin is 9.7 with platelets of 131 today. * Will monitor for now. Anemia is chronic but thrombocytopenia and leukopenia are new. * Will benefit from follow-up with hematology upon discharge. * Iron supplements. 8. History of asthma: Breathing treatments. 9. Rheumatoid arthritis: On abatacept. Follow-up with rheumatology on discharge. 10. Type 2 diabetes mellitus: On insulin degludec 9 6 units nightly. On insulin sliding scale. Accu-Cheks AC at bedtime. DVT prophylaxis:heparin Code Visit Inpatient E&M: [id number] Subs Hosp L3
[2019-07-23] MEDS: Carvedilol 25 MG Tablet 50 MG PO ×2 (09:44→21:20)
[2019-07-23] MEDS: Lisinopril 40 MG Tablet PO (09:44)
[2019-07-23] MEDS: amLODIPine 10 MG Tablet PO (09:44)
[2019-07-23] MEDS: Loperamide 2 MG Capsule PO ×4 (09:44→23:54)
[2019-07-23] MEDS: Nystatin Powder 15gm Bottle 1 APPLIC TOPICAL (09:45)
--- NOTE | 2019-07-23 11:04 | CASEMGMT ---
RN CM PADDED PRODUCTS FINISHER CM to room to meet with patient for initial transition planning/care coordination assessment. RN SHAILESH introduced self and role at [facility]. Pt voices understanding and consents to assessment at this time. Pt resting in bed in no distress at this time. Brother @ bedside and pt agreable to him being present during assessment. Pt is A/O at this time and answers all questions appropriately. Care providers, pharmacy, and demographics verified/updated at this time. PCP: Danielle Specialists: Elroy for Rheumatoid Arthritis, Delon--nephrology, Saw a vice president corporate communications @ [facility] but wishes to switch to Dr Cruz if possible. Bevier made aware. Preferred Pharmacy: [facility] Insurance: [facility] Prescription Benefit: Yes Living Will/HPOA: does not have LW or HCPOA . Interested in more information and would like to talk with INDU to complete paperwork. Consult order placed and INDU T[place]on, made aware. LNOK: Has 2 brothers. Brother present in room is Garrett Louie, who is supportive. Living Arrangements: Lives alone. was independent prior to admission and is hoping to be able to return to prior level of functioning once she returns home. She states she was working full-time prior to hospitalization but anticipates she may not be able to return to work d/t will be starting dialysis. has limited support/does not have anyone close by to assist her with meals or other things she may need once returning home. INDU consult placed. Transportation: Pt states drives. Plans to use taxi services for 1st couple appts to dialysis and then drive to appts thereafter. Pt states she goes to [facility] and is planning to inquire with them if they can help assist with transportation. DME: has the following DME: glucometer, nebulizer, and shower chair (has but does not use) Pt states no need for further DME at this time. HHC/SNF: No history of either. Pt wishes to return home and states has no concerns with going home at time of discharge. CM to follow for home oxygen needs and any further discharge planning/needs. Pt voices no further concerns/needs at this time. Advised pt to ask for CM if any further questions/concerns/needs arise. Voices understanding. PLAN: Home w/OP dialysis. Follow PT/OT for possible HHC or OP therapy. Follow for Home O2. SW consult for AD, limited support, meals on wheels, and financial concerns. Farida OLIVARES RN CM
[2019-07-23 11:30] LABS: Bedside Glucose 104 mg/dL (70-110)
[2019-07-23 12:00] LABS: Pathologist Review Reviewed
--- NOTE | 2019-07-23 12:02 | CASEMGMT ---
RN SHAILESH NOTE: Call placed to [facility]. They stated they have received the admission referral packet. They are awaiting Hep B Core Total results--will fax to them once results are in. Farida OLIVARES RN CM
--- NOTE | 2019-07-23 12:07 | PN.RENAL_ITS ---
Patient Problems: Active and Suspected Problems (Last Reviewed 04/03/19 @ 07:40 by Domonique Evangelista) Acute respiratory failure (Acute) Subjective: still with diarrhea despite immodium. Off BIPAP, breathing better but still with cough, fatigue, low grade fever requiring high flow oxygen. Resp panel with human metapneumovirus. - Physical Exam Vitals/I&O's: Vital Signs Temp Pulse Resp BP Pulse Ox 99.7 F H 73 32 H 148/66 H 91 07/23/19 10:00 07/23/19 11:05 07/23/19 11:00 07/23/19 11:00 07/23/19 11:00 Oxygen Flow Rate (L/min) 10 Oxygen Delivery Method Nasal Cannula Weight: 119.3 kg Body Mass Index (BMI) 45.2 Intake and Output for Last 24 Hours 07/21/19 07/22/19 07/23/19 23:59 23:59 23:59 Intake Total 405 / 405 1420 / 1420 425 / 425 Output Total 2625 / 2625 6400 / 6400 500 / 500 Balance -2220 / -2220 -4980 / -4980 -75 / -75 General: Alert, Oriented x3, Cooperative, - Lungs: Rhonchi, Wheezes Cardiovascular: Regular rate Abdomen: Bowel Sounds Present, Soft, Non Tender, Non-Distended Extremities: No edema Neurological: Cranial nerves II-XII grossly intact, - - no tremor Psych/Mental Status: Normal Affect, Appropriate, Alert and oriented to time, place, person, mood and affect Microbiology Past 72 Hours 07/23/19 08:45 Stool Enteric Bacteriology - Final 07/23/19 08:45 Stool Stool Lactoferrin - Final 07/22/19 10:55 Mucosa - Nasopharyngeal Respiratory Panel (PCR) - Final Human [place] 07/22/19 08:10 Stool C. difficile DNA Amplification - Final 07/21/19 17:55 Urine Catheter - Catheter Streptococcus pneumoniae Antigen (M - Final 07/21/19 17:55 Urine Catheter - Catheter Legionella Antigen - Final 07/21/19 17:15 Mucosa - Nasopharyngeal Influenza Types A,B Direct FA (MARTA) - Final Laboratory Results 07/22/19 17:20: POC Glucose 72 07/22/19 19:20: Random Vancomycin 17.6 H 07/22/19 23:55: POC Glucose 81 07/23/19 05:12: POC Glucose 71 07/23/19 05:20: WBC 3.8 L, RBC 3.68 L, Hgb 9.7 L, Hct 32.0 L, MCV 87.0, MCH 26.4 L, MCHC 30.3 L, RDW Std Deviation 51.7 H, RDW Coeff of Andres 16.2 H, Plt Count 131 L, MPV 10.2, Immature Gran % (Auto) 0.800, Neut % (Auto) 81.2 H, Lymph % (Auto) 10.4 L, [place] % (Auto) 7.0, Eos % (Auto) 0.3, Baso % (Auto) 0.3, Absolute Neuts (auto) 3.1, Absolute Lymphs (auto) 0.40 L, Nucleated RBC % 0, Diff Path Review Reviewed 07/23/19 05:20: Sodium 140, Potassium 3.4 L, Chloride 103, Carbon Dioxide 28.0, Anion Gap 9, BUN 38 H, Creatinine 2.88 H, Estim Creat Clear Calc 19.69, Est GFR (MDRD) Af Amer 22 L, Est GFR (MDRD) Non-Af 18 L, BUN/Creatinine Ratio 13.2, Glucose 77, Calcium 8.0 L 07/23/19 05:20: Random Vancomycin 20.1 H 07/23/19 11:14: POC Glucose 104 Clinical Impression(s) from Imaging Studies Chest X-Ray 07/23/19 05:55 IMPRESSION: Persistent pulmonary edema. Improved aeration of the left upper lobe. Electronically Signed: Wili Kruger, at 10:15 EST , Service support , Current Medications Acetaminophen (Tylenol) 650 mg PO Q6H PRN PRN PRN Reason: TEMP>101 Last Admin: 07/22/19 13:41 Dose: 650 mg Documented by: Albuterol/Ipratropium (Duoneb) 3 ml INHALATION Q6HWA.RT URBANO Last Admin: 07/23/19 06:26 Dose: 3 ml Documented by: Amlodipine Besylate (Norvasc) 10 mg PO DAILY [facility] Last Admin: 07/23/19 09:44 Dose: 10 mg Documented by: Carvedilol (Coreg) 50 mg PO BID [facility] Last Admin: 07/23/19 09:44 Dose: 50 mg Documented by: Dextrose (D50w Syringe) 0 gm IV X1 PRN; Protocol PRN Reason: Hypoglycemia Last Admin: 07/22/19 04:24 Dose: 12.5 gm Documented by: Furosemide (Lasix) 80 mg IV Q8 URBANO Last Admin: 07/23/19 05:16 Dose: 80 mg Documented by: Glucagon () 1 mg IM .X1 PRN PRN Reason: Hypoglycemia Heparin Sodium (Porcine) (Heparin Na) 5,000 unit SC Q8 URBANO Last Admin: 07/23/19 05:17 Dose: 5,000 unit Documented by: Hydralazine HCl (Apresoline Iv) 10 mg IV Q6H PRN PRN PRN Reason: BLOOD PRESSURE Last Admin: 07/22/19 11:09 Dose: 10 mg Documented by: Piperacillin Sod/Tazobactam (Sod 3.375 gm/ Sodium Chloride) 50 mls @ 12.5 mls/hr IV Q12 [facility] Last Admin: 07/23/19 09:44 Dose: 12.5 mls/hr Documented by: Insulin Human Lispro (Humalog Kwikpen (Bkc)) 0 unit SC Q6 URBANO; Protocol Last Admin: 07/23/19 11:30 Dose: Not Given Documented by: Lisinopril (Zestril) 40 mg PO DAILY [facility] Last Admin: 07/23/19 09:44 Dose: 40 mg Documented by: Loperamide HCl (Imodium) 2 mg PO Q4H PRN PRN PRN Reason: diarrhea Last Admin: 07/23/19 09:44 Dose: 2 mg Documented by: Nystatin (Mycostatin Powder) 1 applic TOPICAL BID [facility]; Protocol Last Admin: 07/23/19 09:45 Dose: 1 applicatio Documented by: Sodium Chloride () 10 - 40 ml IV UD PRN PRN Reason: SALINE FLUSH Last Admin: 07/22/19 11:10 Dose: 10 ml Documented by: Medical Necessity - Tobacco Use Smoking Status: Never smoker Tobacco Use: Non-smoker Assessment/Plan All Active Problems (Last Reviewed 04/03/19 @ 07:40 by Domonique Evangelista) Acute respiratory failure (Acute) Hx of arteriovenostomy for renal dialysis (Acute ~12/2018) Morbid obesity (Acute) Rheumatoid arthritis (Acute) Diabetes mellitus type 2 in obese (Acute) Broken arm (Acute) Obesity (Acute) High cholesterol (Acute) Asthma (Acute) Rheumatoid arthritis (Acute) Kidney failure (Acute) CHF (congestive heart failure) (Acute) EDNA (iron deficiency anemia) (Acute) 1. CKD stage IV appears to have progressed to stage V vs Acute on CKD 4 with underlying diabetic nephropathy. UF today for continued volume expansion. Remains nonoliguric on iv lasix. Continue to monitor renal fxn to determine need for continue renal replacement therapy. 2. Acute respiratory failure due to pulmonary edema, human meta. virus pneumonia. Continue IV Lasix. UF only today 3. Diabetes mellitus type 2 primary service management 4. Hypertention stable 5. Anemia hgb stable 6. AVF left forearm use new fistula protocol 7. fever on iv antibx.
--- NOTE | 2019-07-23 12:32 | CASEMGMT ---
SW received referral from CM for financial resources, LW/POA, and MOW. SW met w/pt to assist w/resources. SW spoke w/pt initially about MOW, pt agreeable to referral. SW and pt completed referral and SW faxed to MOW. SW also gave pt information for transportation assistance through [employer] for the taxi voucher program. Pt at this time is planning to take a taxi to and from dialysis should it be needed as an outpt, and then eventually drive herself. SW also spoke w/pt about palliative care, pt did take information to further review. SW offered support to pt as well given the possibility she may need dialysis when she leaves here. SW also assisted pt in completing LW/POA forms, SW gave pt originals and copies, and placed copies in the chart. Dr. Jernigan came in while pt and SW speaking. At this time it is uncertain if pt will need dialysis when discharged. Dr. Jernigan also spoke w/pt about going somewhere for rehab. SW followed up with pt in regard to this, explained will see how she is moving, if this is needed or not. Pt has not yet had therapy. SW/CM will continue to follow for discharge needs. MARS Tvaera
[2019-07-23 12:47] LABS: Hepatitis B Core Ab Total Negative (Negative)
--- NOTE | 2019-07-23 17:10 | DIALYSIS ---
Report from primary RN, Kaushal Saha Hep B sag (negative 07/22/19) Access: left forearm AVF. Site benign with slight bruise. Cannulated with 15 guage needles x 2. Connections visible and secure.
[2019-07-23 18:40] LABS: Bedside Glucose 111 mg/dL (70-110)
--- NOTE | 2019-07-23 19:45 | DIALYSIS ---
Hemodialysis complete. 2 hour IUF. Net fluid removed = 3000 ml. Patient tolerated HD tx well. Left forearm AVF: site benign, thrill and bruit present, needle site pressure held 10 minutes each. Hemostasis achieved. Report given to primary RNCamial.
[2019-07-23] MEDS: 0.9% Saline Lock 10 ML Syringe IV (21:20)
--- NOTE | 2019-07-23 22:35 | CPS ---
pt unable to tolerate bipap
[2019-07-23 23:36] LABS: Bedside Glucose 116 mg/dL (70-110)
[2019-07-24] VITALS (26 sets, daily range): BP systolic 128–161; BP diastolic 44–89; PULSE 60–78; RESP 14–38; TEMP 36.6–38.1; O2SAT 92–99
[2019-07-24 03:36] LABS: Absolute Lymphocyte Count 0.66 X10^3/uL (0.83-4.51); Absolute Neutrophil Count 3.7 X10^3/uL (2.0-7.7); Basophil# 0.01 X10^3/uL; Basophil% 0.2 % (0-1); Eosinophil# 0.02 X10^3/uL; Eosinophils% 0.4 % (0-5); Hematocrit 30.3 % (37-47); Hemoglobin 9.3 g/dL (12.0-15.0); Lymphocyte # 0.66 X10^3/ul (4.0); Lymphocyte % 14.2 % (19-41); Mean Corp Hgb Conc 30.7 g/dL (32-36); Mean Corpuscular Hgb 26.6 pg (27.0-32.0); Mean Corpuscular Volume 86.6 fL (81-99); Mean Platelet Vol. 9.7 fl (6.2-12.0); Monocyte# 0.27 X10^3/uL; Monocyte% 5.8 % (0-10); NRBC Flagged by Analyzer 0 % (0-5); Neutrophil # 3.66 X10^3/uL (2.7-7.7); Neutrophil % 78.5 % (47-70); POSITIVE MORPHOLOGY YES; Platelet Count 129 K/mm3 (150-450); RBC Distribution Width CV 16.1 % (11.6-14.6); RBC Distribution Width SD 50.9 fl (35.1-43.9); White Blood Count 4.7 K/mm3 (4.4-11.0)
[2019-07-24 03:38] LABS: Differential Indicated SCAN CRITERIA MET
[2019-07-24 03:51] LABS: Anion Gap 10 (5-15); BUN 47 mg/dL (7-18); BUN/Creat Ratio 13.6 RATIO (10-20); Calcium,Total 7.8 mg/dL (8.5-10.1); Chloride 102 mmol/L (98-107); Creatinine, Serum 3.46 mg/dL (0.55-1.02); EST Glomerular Filtration Rate 14 mL/min (>60); Est Glom Filt Rate - Afr Amer 17 mL/min (>60); Estimated Creatinine Clearance 16.39 ml/min; Glucose 99 mg/dL (74-106); Potassium 3.1 mmol/L (3.5-5.1); Sodium Level 140 mmol/L (136-145)
[2019-07-24] MEDS: Furosemide 100 MG/10 ML Vial 80 MG IV ×3 (05:27→21:58)
[2019-07-24] MEDS: 0.9% Saline Lock 10 ML Syringe IV (05:28)
[2019-07-24] MEDS: Heparin Injection (Vial) 5,000 UNIT/ML VIAL 5000 UNIT SC ×3 (05:28→21:57)
[2019-07-24 05:40] LABS: Bedside Glucose 100 mg/dL (70-110)
[2019-07-24] MEDS: Ipratropium/Albuterol Sulfate 3 ML AMPUL.NEB INHALATION ×3 (06:36→20:14)
--- NOTE | 2019-07-24 06:36 | PN_ITS ---
Subjective: The patient was seen and examined at the bedside this morning. Events from the last 24 hours have been reviewed. The patient still has a low-grade fever but remains hemodynamically stable. She is currently maintaining appropriate oxygen saturations on 6 L/min via nasal cannula. The patient refused to utilize BiPAP overnight. Potassium is low this morning at 3.1. An additional 3 L of fluid was removed yesterday via ultrafiltration. She is currently documented to be overall net -11.7 L for the admission. Objective: The patient's most recent lab work, culture data and imaging studies have all been personally reviewed. Surface echocardiogram revealed normal LV size and function with an ejection fraction of 55% and stage II diastolic dysfunction. Pulmonary artery systolic pressure was estimated to be 30 mmHg. Strep and urine Legionella antigens were both negative. C. difficile was negative. Respiratory viral panel was positive for human metapneumovirus. Fecal leukocytes were negative and enteric panel was negative. Blood and urine cultures have revealed no growth to date. General: Alert, Cooperative, No apparent distress HEENT: Atraumatic, PERRLA, Normocephalic Oral: No Gingival or Mucosal Lesions/ Ulcerations Neck: Supple, No Nodes, Trachea Midline Lungs: Diminished, Rales Cardiovascular: Regular rate, Regular Rhythm, Normal S1, Normal S2, No murmurs Abdomen: Bowel Sounds Present, Soft, Non Tender, Obese Extremities: No clubbing, No cyanosis Skin: No breakdown Musculoskeletal: No Tenderness to Palpation of Joints or Extremities Lymphatic: No Cervical, Supraclavicular, or Inguinal Adenopathy Neurological: Neuro grossly intact Psych/Mental Status: Normal Affect, Appropriate Vital Signs Temp Pulse Resp BP Pulse Ox 99.3 F H 64 24 H 146/68 H 99 07/24/19 05:00 07/24/19 05:00 07/24/19 05:00 07/24/19 05:00 07/24/19 05:00 Oxygen Flow Rate (L/min) 6 Oxygen Delivery Method Nasal Cannula Weight: 250 lb 10.649 oz Body Mass Index (BMI) 45.2 Intake and Output for Last 24 Hours 07/22/19 07/23/19 07/24/19 23:59 23:59 23:59 Intake Total 1420 / 1420 825 / 825 400 / 400 Output Total 6400 / 6400 5250 / 5250 500 / 500 Balance -4980 / -4980 -4425 / -4425 -100 / -100 Labs (Last 48 Hours) 07/21/19 07/22/19 07/22/19 15:30 04:00 04:00 WBC RBC Hgb Hct MCV MCH MCHC RDW Std Deviation RDW Coeff of Andres Plt Count MPV Immature Gran % (Auto) Neut % (Auto) Lymph % (Auto) [place] % (Auto) Eos % (Auto) Baso % (Auto) Absolute Neuts (auto) Absolute Lymphs (auto) Nucleated RBC % Diff Path Review Reviewed Reviewed Sodium Potassium Chloride Carbon Dioxide Anion Gap BUN Creatinine Estim Creat Clear Calc Est GFR (MDRD) Af Amer Est GFR (MDRD) Non-Af BUN/Creatinine Ratio Glucose Calcium Random Vancomycin Hep Bs Antigen Hep Bs Antibody Hep B Core Total Ab Negative MRSA (PCR) POC Glucose 07/22/19 07/22/19 07/22/19 04:00 09:30 11:01 WBC RBC Hgb Hct MCV MCH MCHC RDW Std Deviation RDW Coeff of Andres Plt Count MPV Immature Gran % (Auto) Neut % (Auto) Lymph % (Auto) [place] % (Auto) Eos % (Auto) Baso % (Auto) Absolute Neuts (auto) Absolute Lymphs (auto) Nucleated RBC % Diff Path Review Sodium Potassium Chloride Carbon Dioxide Anion Gap BUN Creatinine Estim Creat Clear Calc Est GFR (MDRD) Af Amer Est GFR (MDRD) Non-Af BUN/Creatinine Ratio Glucose Calcium Random Vancomycin Hep Bs Antigen Non-Reactive Hep Bs Antibody Non-Reactive Hep B Core Total Ab MRSA (PCR) Negative POC Glucose 88 07/22/19 07/22/19 07/22/19 17:20 19:20 23:55 WBC RBC Hgb Hct MCV MCH MCHC RDW Std Deviation RDW Coeff of Andres Plt Count MPV Immature Gran % (Auto) Neut % (Auto) Lymph % (Auto) [place] % (Auto) Eos % (Auto) Baso % (Auto) Absolute Neuts (auto) Absolute Lymphs (auto) Nucleated RBC % Diff Path Review Sodium Potassium Chloride Carbon Dioxide Anion Gap BUN Creatinine Estim Creat Clear Calc Est GFR (MDRD) Af Amer Est GFR (MDRD) Non-Af BUN/Creatinine Ratio Glucose Calcium Random Vancomycin 17.6 H Hep Bs Antigen Hep Bs Antibody Hep B Core Total Ab MRSA (PCR) POC Glucose 72 81 07/23/19 07/23/19 07/23/19 05:12 05:20 05:20 WBC 3.8 L RBC 3.68 L Hgb 9.7 L Hct 32.0 L MCV 87.0 MCH 26.4 L MCHC 30.3 L RDW Std Deviation 51.7 H RDW Coeff of Andres 16.2 H Plt Count 131 L MPV 10.2 Immature Gran % (Auto) 0.800 Neut % (Auto) 81.2 H Lymph % (Auto) 10.4 L [place] % (Auto) 7.0 Eos % (Auto) 0.3 Baso % (Auto) 0.3 Absolute Neuts (auto) 3.1 Absolute Lymphs (auto) 0.40 L Nucleated RBC % 0 Diff Path Review Reviewed Sodium 140 Potassium 3.4 L Chloride 103 Carbon Dioxide 28.0 Anion Gap 9 BUN 38 H Creatinine 2.88 H Estim Creat Clear Calc 19.69 Est GFR (MDRD) Af Amer 22 L Est GFR (MDRD) Non-Af 18 L BUN/Creatinine Ratio 13.2 Glucose 77 Calcium 8.0 L Random Vancomycin Hep Bs Antigen Hep Bs Antibody Hep B Core Total Ab MRSA (PCR) POC Glucose 71 07/23/19 07/23/19 07/23/19 05:20 11:14 18:33 WBC RBC Hgb Hct MCV MCH MCHC RDW Std Deviation RDW Coeff of Andres Plt Count MPV Immature Gran % (Auto) Neut % (Auto) Lymph % (Auto) [place] % (Auto) Eos % (Auto) Baso % (Auto) Absolute Neuts (auto) Absolute Lymphs (auto) Nucleated RBC % Diff Path Review Sodium Potassium Chloride Carbon Dioxide Anion Gap BUN Creatinine Estim Creat Clear Calc Est GFR (MDRD) Af Amer Est GFR (MDRD) Non-Af BUN/Creatinine Ratio Glucose Calcium Random Vancomycin 20.1 H Hep Bs Antigen Hep Bs Antibody Hep B Core Total Ab MRSA (PCR) POC Glucose 104 111 H 07/23/19 07/24/19 07/24/19 23:30 03:30 03:30 WBC 4.7 RBC 3.50 L Hgb 9.3 L Hct 30.3 L MCV 86.6 MCH 26.6 L MCHC 30.7 L RDW Std Deviation 50.9 H RDW Coeff of Andres 16.1 H Plt Count 129 L MPV 9.7 Immature Gran % (Auto) 0.900 Neut % (Auto) 78.5 H Lymph % (Auto) 14.2 L [place] % (Auto) 5.8 Eos % (Auto) 0.4 Baso % (Auto) 0.2 Absolute Neuts (auto) 3.7 Absolute Lymphs (auto) 0.66 L Nucleated RBC % 0 Diff Path Review Sodium 140 Potassium 3.1 L Chloride 102 Carbon Dioxide 28.0 Anion Gap 10 BUN 47 H Creatinine 3.46 H Estim Creat Clear Calc 16.39 Est GFR (MDRD) Af Amer 17 L Est GFR (MDRD) Non-Af 14 L BUN/Creatinine Ratio 13.6 Glucose 99 Calcium 7.8 L Random Vancomycin Hep Bs Antigen Hep Bs Antibody Hep B Core Total Ab MRSA (PCR) POC Glucose 116 H 07/24/19 05:25 WBC RBC Hgb Hct MCV MCH MCHC RDW Std Deviation RDW Coeff of Andres Plt Count MPV Immature Gran % (Auto) Neut % (Auto) Lymph % (Auto) [place] % (Auto) Eos % (Auto) Baso % (Auto) Absolute Neuts (auto) Absolute Lymphs (auto) Nucleated RBC % Diff Path Review Sodium Potassium Chloride Carbon Dioxide Anion Gap BUN Creatinine Estim Creat Clear Calc Est GFR (MDRD) Af Amer Est GFR (MDRD) Non-Af BUN/Creatinine Ratio Glucose Calcium Random Vancomycin Hep Bs Antigen Hep Bs Antibody Hep B Core Total Ab MRSA (PCR) POC Glucose 100 Microbiology 07/23/19 08:45 Stool Enteric Bacteriology - Final 07/23/19 08:45 Stool Stool Lactoferrin - Final 07/22/19 10:55 Mucosa - Nasopharyngeal Respiratory Panel (PCR) - Final Human [place] 07/22/19 08:10 Stool C. difficile DNA Amplification - Final Clinical Impression(s) from Imaging Studies Chest X-Ray 07/21/19 16:50 IMPRESSION: Bilateral perihilar infiltrates suggestive of pulmonary edema. Cardiomegaly. Electronically Signed: Rojas Spence MD at 17:23 EST , Service support , Chest X-Ray 07/22/19 05:55 IMPRESSION: Patchy ill-defined airspace opacities are seen in the right and left lungs may represent bilateral pneumonia or pulmonary edema are improved since the previous study. Electronically Signed: Silvia Sanchez, at 5:09 EST Tel , Service support , Chest X-Ray 07/23/19 05:55 IMPRESSION: Persistent pulmonary edema. Improved aeration of the left upper lobe. Electronically Signed: Wili Arguelloaubrie, at 10:15 EST , Service support , Medical Necessity - Tobacco Use Smoking Status: Never smoker Tobacco Use: Non-smoker Assessment/Plan All Active Problems (Last Reviewed 04/03/19 @ 07:40 by Domonique Evangelista) Acute respiratory failure (Acute) Hx of arteriovenostomy for renal dialysis (Acute ~12/2018) Morbid obesity (Acute) Rheumatoid arthritis (Acute) Diabetes mellitus type 2 in obese (Acute) Broken arm (Acute) Obesity (Acute) High cholesterol (Acute) Asthma (Acute) Rheumatoid arthritis (Acute) Kidney failure (Acute) CHF (congestive heart failure) (Acute) EDNA (iron deficiency anemia) (Acute) RECOMMENDATIONS: 1. Continue scheduled Lasix and dialysis support per nephrology recommendations. 2. Okay from my perspective to discontinue Zosyn. 3. Wean supplemental oxygen via nasal cannula to maintain saturations at or above 90%. 4. The patient was strongly encouraged to utilize nocturnal BiPAP therapy. 5. Potassium repletion. 6. Encourage incentive spirometer use and mobilize patient as tolerated. 7. The patient is medically stable for transfer out of the intensive care unit. IMPRESSIONS: 1. Acute hypoxemic respiratory failure, likely secondary to Acute on chronic congestive heart failure Likely secondary to volume overloaded state in the setting of possible decompensated heart failure and chronic renal insufficiency. The patient has been maintained on empiric antimicrobials, given fevers noted during hospitalization. However, the patient was noted to be positive for human metapneumovirus on her respiratory viral panel. Given that the remainder of the patient's infectious work-up has been negative, will discontinue antibiotics. Nephrology is following to assist with volume optimization through hemodialysis. The patient will be continued on Lasix as well. 2. Chronic renal insufficiency Continue volume optimization through hemodialysis and Lasix per nephrology recommendations. 3. Hypokalemia Electrolyte repletion as ordered. In addition, we will plan to schedule potassium repletion daily, given concurrent use of diuretics. 4. Morbid obesity/suspected sleep disordered breathing/history of rheumatoid arthritis on chronic immunosuppression Complicates care, management, recovery and prognosis. Recommend continuing nocturnal BiPAP therapy while admitted to the hospital. The patient was strongly recommended to follow-up for outpatient polysomnogram. This note was generated with [employer] dictation software. It may contain incorrect words, spelling, and punctuation that were not noted in checking the note before signing. Code Visit Inpatient E&M: 64440 Subs Hosp L3
--- NOTE | 2019-07-24 09:04 | PCM.PN.REN ---
Patient Problems: Active and Suspected Problems (Last Reviewed 04/03/19 @ 07:40 by Domonique Evangelista) Acute respiratory failure (Acute) Subjective: breathing better, less wheezing and cough. Oxygen requirement reduced to 6L via NC. Diarrhea improving. - Physical Exam Vitals/I&O's: Vital Signs Temp Pulse Resp BP Pulse Ox 98.7 F 65 16 144/64 H 94 07/24/19 06:00 07/24/19 08:00 07/24/19 08:00 07/24/19 08:00 07/24/19 08:00 Oxygen Flow Rate (L/min) 6 Oxygen Delivery Method Room Air Weight: 113.7 kg Body Mass Index (BMI) 45.2 Intake and Output for Last 24 Hours 07/22/19 07/23/19 07/24/19 23:59 23:59 23:59 Intake Total 1420 / 1420 825 / 825 400 / 400 Output Total 6400 / 6400 5250 / 5250 500 / 500 Balance -4980 / -4980 -4425 / -4425 -100 / -100 General: Alert, Oriented x3, Cooperative Lungs: Clear to auscultation, Rhonchi, Wheezes Cardiovascular: Regular rate Abdomen: Bowel Sounds Present, Soft, Non Tender, Non-Distended, Obese Extremities: No edema, - - AVF left FA +thrill Psych/Mental Status: Normal Affect, Appropriate, Alert and oriented to time, place, person, mood and affect Microbiology Past 72 Hours 07/22/19 09:00 Blood Culture (Wb) - Arm Right Blood Culture - Preliminary No growth in 48 hours. 07/23/19 08:45 Stool Enteric Bacteriology - Final 07/23/19 08:45 Stool Stool Lactoferrin - Final 07/22/19 10:55 Mucosa - Nasopharyngeal Respiratory Panel (PCR) - Final Human [place] 07/22/19 08:10 Stool C. difficile DNA Amplification - Final 07/21/19 17:55 Urine Catheter - Catheter Streptococcus pneumoniae Antigen (M - Final 07/21/19 17:55 Urine Catheter - Catheter Legionella Antigen - Final 07/21/19 17:15 Mucosa - Nasopharyngeal Influenza Types A,B Direct FA ([facility]) - Final Laboratory Results 07/22/19 04:00: Hep B Core Total Ab Negative 07/23/19 05:20: Diff Path Review Reviewed 07/23/19 11:14: POC Glucose 104 07/23/19 18:33: POC Glucose 111 H 07/23/19 23:30: POC Glucose 116 H 07/24/19 03:30: WBC 4.7, RBC 3.50 L, Hgb 9.3 L, Hct 30.3 L, MCV 86.6, MCH 26.6 L, MCHC 30.7 L, RDW Std Deviation 50.9 H, RDW Coeff of Andres 16.1 H, Plt Count 129 L, MPV 9.7, Immature Gran % (Auto) 0.900, Neut % (Auto) 78.5 H, Lymph % (Auto) 14.2 L, [place] % (Auto) 5.8, Eos % (Auto) 0.4, Baso % (Auto) 0.2, Absolute Neuts (auto) 3.7, Absolute Lymphs (auto) 0.66 L, Nucleated RBC % 0 07/24/19 03:30: Sodium 140, Potassium 3.1 L, Chloride 102, Carbon Dioxide 28.0, Anion Gap 10, BUN 47 H, Creatinine 3.46 H, Estim Creat Clear Calc 16.39, Est GFR (MDRD) Af Amer 17 L, Est GFR (MDRD) Non-Af 14 L, BUN/Creatinine Ratio 13.6, Glucose 99, Calcium 7.8 L 07/24/19 05:25: POC Glucose 100 Current Medications Acetaminophen (Tylenol) 650 mg PO Q6H PRN PRN PRN Reason: TEMP>101 Last Admin: 07/22/19 13:41 Dose: 650 mg Documented by: Albuterol/Ipratropium (Duoneb) 3 ml INHALATION Q6HWA.RT [facility] Last Admin: 07/24/19 06:36 Dose: 3 ml Documented by: Amlodipine Besylate (Norvasc) 10 mg PO DAILY [facility] Last Admin: 07/23/19 09:44 Dose: 10 mg Documented by: Calamine/Phenol (Calmoseptine Ointment) 1 applic TOPICAL 4X/DAY PRN; Protocol PRN Reason: Excoriation Carvedilol (Coreg) 50 mg PO BID [facility] Last Admin: 07/23/19 21:20 Dose: 50 mg Documented by: Dextrose (D50w Syringe) 0 gm IV X1 PRN; Protocol PRN Reason: Hypoglycemia Last Admin: 07/22/19 04:24 Dose: 12.5 gm Documented by: Furosemide (Lasix) 80 mg IV Q8 [facility] Last Admin: 07/24/19 05:27 Dose: 80 mg Documented by: Glucagon () 1 mg IM .X1 PRN PRN Reason: Hypoglycemia Heparin Sodium (Porcine) (Heparin Na) 5,000 unit SC Q8 [facility] Last Admin: 07/24/19 05:28 Dose: 5,000 unit Documented by: Hydralazine HCl (Apresoline Iv) 10 mg IV Q6H PRN PRN PRN Reason: BLOOD PRESSURE Last Admin: 07/22/19 11:09 Dose: 10 mg Documented by: Insulin Human Lispro (Humalog Kwikpen (Bkc)) 0 unit SC Q6 [facility]; Protocol Last Admin: 07/24/19 05:28 Dose: Not Given Documented by: Lisinopril (Zestril) 40 mg PO DAILY [facility] Last Admin: 07/23/19 09:44 Dose: 40 mg Documented by: Loperamide HCl (Imodium) 2 mg PO Q4H PRN PRN PRN Reason: diarrhea Last Admin: 07/23/19 23:54 Dose: 2 mg Documented by: Nystatin (Mycostatin Powder) 1 applic TOPICAL BID [facility]; Protocol Last Admin: 07/23/19 21:46 Dose: Not Given Documented by: Sodium Chloride () 10 - 40 ml IV UD PRN PRN Reason: SALINE FLUSH Last Admin: 07/24/19 05:28 Dose: 30 ml Documented by: Medical Necessity - Tobacco Use Smoking Status: Never smoker Tobacco Use: Non-smoker Assessment/Plan All Active Problems (Last Reviewed 04/03/19 @ 07:40 by Domonique Evangelista) Acute respiratory failure (Acute) Hx of arteriovenostomy for renal dialysis (Acute ~12/2018) Morbid obesity (Acute) Rheumatoid arthritis (Acute) Diabetes mellitus type 2 in obese (Acute) Broken arm (Acute) Obesity (Acute) High cholesterol (Acute) Asthma (Acute) Rheumatoid arthritis (Acute) Kidney failure (Acute) CHF (congestive heart failure) (Acute) EDNA (iron deficiency anemia) (Acute) 1. acute on CKD stage IV vs progressed to ESRD with underlying diabetic nephropathy. Hold dialysis today. Will likely need dialysis continued. 2. Acute respiratory failure due to pulmonary edema, human meta. virus pneumonia. Continue IV Lasix. 3. Diabetes mellitus type 2 primary service management 4. Hypertention stable 5. Anemia hgb stable 6. AVF left forearm use new fistula protocol 7. fever resolved on iv antibx. GARCÍA CLAY, CM
[2019-07-24] MEDS: amLODIPine 10 MG Tablet PO (09:40)
[2019-07-24] MEDS: Lisinopril 40 MG Tablet PO (09:40)
[2019-07-24] MEDS: Nystatin Powder 15gm Bottle 1 APPLIC TOPICAL ×2 (09:47→21:58)
[2019-07-24] MEDS: Carvedilol 25 MG Tablet 50 MG PO ×2 (09:47→21:57)
--- NOTE | 2019-07-24 10:03 | PN_ITS ---
Patient Problems: Active and Suspected Problems (Last Reviewed 04/03/19 @ 07:40 by Domonique Evangelista) Acute respiratory failure (Acute) Subjective: Patient seen and examined. She feels much better today and has no complaints. Diarrhea is also improving. Review of systems otherwise negative. Temperature is donw to 98.7F today, though it peaked at 100.6F overnight. Vitals/I&O's: Vital Signs Temp Pulse Resp BP Pulse Ox 98.7 F 72 18 134/56 H 96 07/24/19 06:00 07/24/19 09:00 07/24/19 09:00 07/24/19 09:00 07/24/19 09:00 Oxygen Flow Rate (L/min) 6 Oxygen Delivery Method Nasal Cannula Weight: 250 lb 10.649 oz Body Mass Index (BMI) 45.2 Intake and Output for Last 24 Hours 07/22/19 07/23/19 07/24/19 23:59 23:59 23:59 Intake Total 1420 / 1420 825 / 825 400 / 400 Output Total 6400 / 6400 5250 / 5250 500 / 500 Balance -4980 / -4980 -4425 / -4425 -100 / -100 General: Alert, Oriented x3, Cooperative, HEENT: Atraumatic, PERRLA, EOMI, Normocephalic Oral: Dry Mucosa Neck: Supple, No JVD, Negative Carotid Bruits Lungs: - - air entry has improved bilaterally, no wheezes or crackles. Decreased breath sounds bilaterally. on 6L of oxygen Cardiovascular: Regular rate, Regular Rhythm, Normal S1, Normal S2, No murmurs Abdomen: Bowel Sounds Present, Soft, Non Tender, Non-Distended, No Hepato- splenomegaly Extremities: No clubbing, No cyanosis, Capillary Refill Less than 3 Seconds, - - bipedal 1+ pitting edema Skin: No rashes, No breakdown Musculoskeletal: No Tenderness to Palpation of Joints or Extremities Lymphatic: No Cervical, Supraclavicular, or Inguinal Adenopathy Neurological: Cranial nerves II-XII grossly intact, Neuro grossly intact, Motor Exam 5/5 strength throughout Psych/Mental Status: Normal Affect, Appropriate, Alert and oriented to time, place, person, mood and affect Microbiology Past 72 Hours 07/22/19 07:55 Urine Catheter - Gross Urine Culture - Final Culture exhibits no growth. 07/22/19 09:00 Blood Culture (Wb) - Arm Right Blood Culture - Preliminary No growth in 48 hours. 07/23/19 08:45 Stool Enteric Bacteriology - Final 07/23/19 08:45 Stool Stool Lactoferrin - Final 07/22/19 10:55 Mucosa - Nasopharyngeal Respiratory Panel (PCR) - Final Human [place] 07/22/19 08:10 Stool C. difficile DNA Amplification - Final 07/21/19 17:55 Urine Catheter - Catheter Streptococcus pneumoniae Antigen (M - Final 07/21/19 17:55 Urine Catheter - Catheter Legionella Antigen - Final 07/21/19 17:15 Mucosa - Nasopharyngeal Influenza Types A,B Direct FA ([facility]) - Final Laboratory Results 07/22/19 04:00: Hep B Core Total Ab Negative 07/23/19 05:20: Diff Path Review Reviewed 07/23/19 11:14: POC Glucose 104 07/23/19 18:33: POC Glucose 111 H 07/23/19 23:30: POC Glucose 116 H 07/24/19 03:30: WBC 4.7, RBC 3.50 L, Hgb 9.3 L, Hct 30.3 L, MCV 86.6, MCH 26.6 L , MCHC 30.7 L, RDW Std Deviation 50.9 H, RDW Coeff of Andres 16.1 H, Plt Count 129 L, MPV 9.7, Immature Gran % (Auto) 0.900, Neut % (Auto) 78.5 H, Lymph % (Auto) 14.2 L, [place] % (Auto) 5.8, Eos % (Auto) 0.4, Baso % (Auto) 0.2, Absolute Neuts (auto) 3.7, Absolute Lymphs (auto) 0.66 L, Nucleated RBC % 0 07/24/19 03:30: Sodium 140, Potassium 3.1 L, Chloride 102, Carbon Dioxide 28.0, Anion Gap 10, BUN 47 H, Creatinine 3.46 H, Estim Creat Clear Calc 16.39, Est GFR (MDRD) Af Amer 17 L, Est GFR (MDRD) Non-Af 14 L, BUN/Creatinine Ratio 13.6, Glucose 99, Calcium 7.8 L 07/24/19 05:25: POC Glucose 100 Current Medications Acetaminophen (Tylenol) 650 mg PO Q6H PRN PRN PRN Reason: TEMP>101 Last Admin: 07/22/19 13:41 Dose: 650 mg Documented by: Albuterol/Ipratropium (Duoneb) 3 ml INHALATION Q6HWA.RT [facility] Last Admin: 07/24/19 06:36 Dose: 3 ml Documented by: Amlodipine Besylate (Norvasc) 10 mg PO DAILY [facility] Last Admin: 07/24/19 09:40 Dose: 10 mg Documented by: Calamine/Phenol (Calmoseptine Ointment) 1 applic TOPICAL 4X/DAY PRN; Protocol PRN Reason: Excoriation Carvedilol (Coreg) 50 mg PO BID [facility] Last Admin: 07/24/19 09:47 Dose: 50 mg Documented by: Dextrose (D50w Syringe) 0 gm IV X1 PRN; Protocol PRN Reason: Hypoglycemia Last Admin: 07/22/19 04:24 Dose: 12.5 gm Documented by: Furosemide (Lasix) 80 mg IV Q8 [facility] Last Admin: 07/24/19 05:27 Dose: 80 mg Documented by: Glucagon () 1 mg IM .X1 PRN PRN Reason: Hypoglycemia Heparin Sodium (Porcine) (Heparin Na) 5,000 unit SC Q8 [facility] Last Admin: 07/24/19 05:28 Dose: 5,000 unit Documented by: Hydralazine HCl (Apresoline Iv) 10 mg IV Q6H PRN PRN PRN Reason: BLOOD PRESSURE Last Admin: 07/22/19 11:09 Dose: 10 mg Documented by: Insulin Human Lispro (Humalog Kwikpen (Bkc)) 0 unit SC Q6 [facility]; Protocol Last Admin: 07/24/19 05:28 Dose: Not Given Documented by: Lisinopril (Zestril) 40 mg PO DAILY [facility] Last Admin: 07/24/19 09:40 Dose: 40 mg Documented by: Loperamide HCl (Imodium) 2 mg PO Q4H PRN PRN PRN Reason: diarrhea Last Admin: 07/23/19 23:54 Dose: 2 mg Documented by: Nystatin (Mycostatin Powder) 1 applic TOPICAL BID [facility]; Protocol Last Admin: 07/24/19 09:47 Dose: 1 applicatio Documented by: Potassium Chloride (K-Dur) 40 meq PO DAILYCM [facility] Sodium Chloride () 10 - 40 ml IV UD PRN PRN Reason: SALINE FLUSH Last Admin: 07/24/19 05:28 Dose: 30 ml Documented by: STROKE Vital Signs/Narrative: Vital Signs Pulse Resp BP Pulse Ox 07/24/19 09:00 72 18 134/56 H 96 07/24/19 08:00 70 16 144/64 H 97 07/24/19 07:30 65 07/24/19 06:37 67 29 H 98 Medical Necessity - Tobacco Use Smoking Status: Never smoker Tobacco Use: Non-smoker Assessment/Plan All Active Problems (Last Reviewed 04/03/19 @ 07:40 by Domonique Evangelista) Acute respiratory failure (Acute) Hx of arteriovenostomy for renal dialysis (Acute ~12/2018) Morbid obesity (Acute) Rheumatoid arthritis (Acute) Diabetes mellitus type 2 in obese (Acute) Broken arm (Acute) Obesity (Acute) High cholesterol (Acute) Asthma (Acute) Rheumatoid arthritis (Acute) Kidney failure (Acute) CHF (congestive heart failure) (Acute) EDNA (iron deficiency anemia) (Acute) 1. Acute hypoxic respiratory failure due to fluid overload and acute exacerbation of heart failure as well as community acquired pneumonia * now on 6L of oxygen * temperature settling down * 2D echo: EF of 55%, with stage 2 diastolic dysfunction, mildly dilated RV and PA pressure of 30mmHg. LVSF is normal * continue iV lasix 80mg qhs * cardiology and nephrology as well as pulmonology on board * in cumulative negative balance by 11.7L since admission * continue breathing treatments and steroids * 2. CKD 4: * fistula in E; having regular dialysis for fluid overload as under 1. * Nephrology on board 3. Acute on chronic heart failure with reduced EF * cardiology on board * on IV lasix 80mg tid * 2D echo as under 1, with EF of 55% * 4. diarrhea: resolving. C Diff was negative. on loperamide 5. Hypertension: on coreg and lisinopril as well as amlodipine. control has improved since she started dialysis 6. Hyperlipidemia: On statin. 7. Pancytopenia: * wbc is now up to 4.7, nad platelets are 129. hb is 9.3. * Will monitor for now. Anemia is chronic but thrombocytopenia and leukopenia are new. * Will benefit from follow-up with hematology upon discharge. 8. History of asthma: Breathing treatments. 9. Rheumatoid arthritis: On abatacept. Follow-up with rheumatology on discharge. 10. Type 2 diabetes mellitus: On insulin degludec 9 6 units nightly. On insulin sliding scale. Accu-Cheks AC at bedtime. DVT prophylaxis:heparin Code Visit Inpatient E&M: 07268 Subs Hosp L2
[2019-07-24 11:25] LABS: Bedside Glucose 147 mg/dL (70-110)
[2019-07-24] MEDS: Loperamide 2 MG Capsule PO (14:22)
--- NOTE | 2019-07-24 14:56 | NURSING ---
report called for transfer to room 102, transferred per bed with belongings to with o2
[2019-07-24 16:21] LABS: Bedside Glucose 168 mg/dL (70-110)
[2019-07-24] MEDS: Insulin Lispro 100 UNIT/ML INSULN.PEN SC ×2 (18:15→23:56)
[2019-07-25] VITALS (14 sets, daily range): BP systolic 145–164; BP diastolic 62–78; PULSE 56–74; RESP 15–18; TEMP 36.4–37.1; O2SAT 94–98
[2019-07-25 00:40] LABS: Bedside Glucose 161 mg/dL (70-110)
--- NOTE | 2019-07-25 01:46 | CPS ---
pt declined use of bipap
[2019-07-25] MEDS: Heparin Injection (Vial) 5,000 UNIT/ML VIAL 5000 UNIT SC ×3 (05:55→21:47)
[2019-07-25] MEDS: Furosemide 100 MG/10 ML Vial 80 MG IV (05:55)
[2019-07-25] MEDS: 0.9% Saline Lock 10 ML Syringe IV (06:02)
[2019-07-25 06:15] LABS: Bedside Glucose 137 mg/dL (70-110)
[2019-07-25] MEDS: Ipratropium/Albuterol Sulfate 3 ML AMPUL.NEB INHALATION ×3 (06:42→19:56)
[2019-07-25 07:59] LABS: Absolute Lymphocyte Count 0.74 X10^3/uL (0.83-4.51); Absolute Neutrophil Count 2.6 X10^3/uL (2.0-7.7); Basophil# 0.01 X10^3/uL; Basophil% 0.2 % (0-1); Eosinophil# 0.21 X10^3/uL; Eosinophils% 5.2 % (0-5); Hematocrit 29.7 % (37-47); Hemoglobin 8.9 g/dL (12.0-15.0); Lymphocyte # 0.74 X10^3/ul (4.0); Lymphocyte % 18.2 % (19-41); Mean Corpuscular Volume 86.8 fL (81-99); Mean Platelet Vol. 9.8 fl (6.2-12.0); Monocyte# 0.46 X10^3/uL; Monocyte% 11.3 % (0-10); NRBC Flagged by Analyzer 0 % (0-5); Neutrophil # 2.62 X10^3/uL (2.7-7.7); Neutrophil % 64.6 % (47-70); POSITIVE MORPHOLOGY YES; Platelet Count 139 K/mm3 (150-450); Red Blood Count 3.42 M/mm3 (4.2-5.4); White Blood Count 4.1 K/mm3 (4.4-11.0)
[2019-07-25 08:10] LABS: Differential Indicated SCAN CRITERIA MET
[2019-07-25 08:40] LABS: Anion Gap 9 (5-15); BUN 59 mg/dL (7-18); BUN/Creat Ratio 15.5 RATIO (10-20); Chloride 105 mmol/L (98-107); Creatinine, Serum 3.81 mg/dL (0.55-1.02); EST Glomerular Filtration Rate 13 mL/min (>60); Est Glom Filt Rate - Afr Amer 16 mL/min (>60); Estimated Creatinine Clearance 14.88 ml/min; Glucose 135 mg/dL (74-106); Potassium 3.4 mmol/L (3.5-5.1); Sodium Level 141 mmol/L (136-145)
--- NOTE | 2019-07-25 09:35 | RAD_ITS ---
STUDY: X-RAY CHEST REASON FOR EXAM: Female, 58 years old. Acute respiratory failure and cough. TECHNIQUE: AP and lateral views of the chest. COMPARISON: Comparison is made with prior study dated July 23, 2019. FINDINGS: EKG electrodes are seen. The previously seen right central line has been removed. There is a mild degree of residual CHF as compared to prior study. Blunting of both costophrenic angles. There is moderate cardiac enlargement. Normal mediastinum and alee. Normal visualized pulmonary arteries. There is atherosclerotic tortuosity of the aortic arch and descending thoracic aorta. There are diffuse degenerative changes of the visualized thoracic spine. Normal visualized ribs, clavicles, and shoulders. There is no demonstrated abnormality of the visualized soft tissue structures of the upper abdomen. RAD/Chest PA and Lateral IMPRESSION: Cardiomegaly and mild residual CHF. Electronically Signed: Wili Kruger, at 15:40 EST , Service support ,
--- NOTE | 2019-07-25 09:40 | DIALYSIS ---
patient up in chair, resting, nonlabored breathing, 4L via NC, Dr. Jernigan will be in this afternoon but at this time no dialysis planned for today, patient will be checked on for possible dialysis treatment tomorrow, 07/26; update given to PCU charge nurse
--- NOTE | 2019-07-25 10:13 | CASEMGMT ---
RIOS CM NOte: Completed Hep Panel faxed to [facility]. Call back information given for [facility] CM as pt is now on PCU. Maura OLIVARES RN ACM
--- NOTE | 2019-07-25 10:44 | PN_ITS ---
Patient Problems: Active and Suspected Problems (Last Reviewed 04/03/19 @ 07:40 by Domonique Evangelista) Acute respiratory failure (Acute) Subjective: The patient was seen and examined at the bedside this morning. Events from the last 24 hours have been reviewed. The patient is currently afebrile, hemodynamically stable and maintaining appropriate oxygen saturations on 4 L/min via nasal cannula. The patient once again refused to utilize BiPAP last night. Objective: The patient's most recent lab work, culture data and imaging studies have all been personally reviewed. Surface echocardiogram revealed normal LV size and function with an ejection fraction of 55% and stage II diastolic dysfunction. Pulmonary artery systolic pressure was estimated to be 30 mmHg. Strep and urine Legionella antigens were both negative. C. difficile was negative. Respiratory viral panel was positive for human metapneumovirus. Fecal leukocytes were negative and enteric panel was negative. Blood and urine cultures have revealed no growth to date. - Physical Exam Vitals/I&O's: Vital Signs Temp Pulse Resp BP Pulse Ox 98.8 F 56 L 16 149/72 H 96 07/25/19 06:00 07/25/19 07:17 07/25/19 06:42 07/25/19 06:00 07/25/19 06:42 Oxygen Flow Rate (L/min) 4 Oxygen Delivery Method Nasal Cannula Weight: 245 lb 5.992 oz Body Mass Index (BMI) 45.2 Intake and Output for Last 24 Hours 07/23/19 07/24/19 07/25/19 23:59 23:59 23:59 Intake Total 825 / 825 1080 / 1080 Output Total 5250 / 5250 1125 / 1125 Balance -4425 / -4425 -45 / -45 General: Alert, Cooperative, No apparent distress HEENT: Atraumatic, PERRLA, Normocephalic Oral: No Gingival or Mucosal Lesions/ Ulcerations Neck: Supple, No Nodes, Trachea Midline Lungs: No rhonchi, No wheeze, No rales, Diminished Cardiovascular: Regular rate, Regular Rhythm, Normal S1, Normal S2, No murmurs Abdomen: Bowel Sounds Present, Soft, Non Tender, Obese Extremities: No clubbing, No cyanosis, No edema Skin: No breakdown Musculoskeletal: No Tenderness to Palpation of Joints or Extremities Lymphatic: No Cervical, Supraclavicular, or Inguinal Adenopathy Neurological: Cranial nerves II-XII grossly intact, Neuro grossly intact Psych/Mental Status: Alert and oriented to time, place, person, mood and affect Labs (Last 48 Hours) 07/22/19 07/23/19 07/23/19 04:00 05:20 11:14 WBC RBC Hgb Hct MCV MCH MCHC RDW Std Deviation RDW Coeff of Andres Plt Count MPV Immature Gran % (Auto) Neut % (Auto) Lymph % (Auto) [place] % (Auto) Eos % (Auto) Baso % (Auto) Absolute Neuts (auto) Absolute Lymphs (auto) Nucleated RBC % Differential Comment Diff Path Review Reviewed Sodium Potassium Chloride Carbon Dioxide Anion Gap BUN Creatinine Estim Creat Clear Calc Est GFR (MDRD) Af Amer Est GFR (MDRD) Non-Af BUN/Creatinine Ratio Glucose Calcium Hep B Core Total Ab Negative POC Glucose 104 07/23/19 07/23/19 07/24/19 18:33 23:30 03:30 WBC 4.7 RBC 3.50 L Hgb 9.3 L Hct 30.3 L MCV 86.6 MCH 26.6 L MCHC 30.7 L RDW Std Deviation 50.9 H RDW Coeff of Andres 16.1 H Plt Count 129 L MPV 9.7 Immature Gran % (Auto) 0.900 Neut % (Auto) 78.5 H Lymph % (Auto) 14.2 L [place] % (Auto) 5.8 Eos % (Auto) 0.4 Baso % (Auto) 0.2 Absolute Neuts (auto) 3.7 Absolute Lymphs (auto) 0.66 L Nucleated RBC % 0 Differential Comment Diff Path Review Sodium Potassium Chloride Carbon Dioxide Anion Gap BUN Creatinine Estim Creat Clear Calc Est GFR (MDRD) Af Amer Est GFR (MDRD) Non-Af BUN/Creatinine Ratio Glucose Calcium Hep B Core Total Ab POC Glucose 111 H 116 H 07/24/19 07/24/19 07/24/19 03:30 05:25 11:20 WBC RBC Hgb Hct MCV MCH MCHC RDW Std Deviation RDW Coeff of Andres Plt Count MPV Immature Gran % (Auto) Neut % (Auto) Lymph % (Auto) [place] % (Auto) Eos % (Auto) Baso % (Auto) Absolute Neuts (auto) Absolute Lymphs (auto) Nucleated RBC % Differential Comment Diff Path Review Sodium 140 Potassium 3.1 L Chloride 102 Carbon Dioxide 28.0 Anion Gap 10 BUN 47 H Creatinine 3.46 H Estim Creat Clear Calc 16.39 Est GFR (MDRD) Af Amer 17 L Est GFR (MDRD) Non-Af 14 L BUN/Creatinine Ratio 13.6 Glucose 99 Calcium 7.8 L Hep B Core Total Ab POC Glucose 100 147 H 07/24/19 07/24/19 07/25/19 16:14 23:53 05:54 WBC RBC Hgb Hct MCV MCH MCHC RDW Std Deviation RDW Coeff of Andres Plt Count MPV Immature Gran % (Auto) Neut % (Auto) Lymph % (Auto) [place] % (Auto) Eos % (Auto) Baso % (Auto) Absolute Neuts (auto) Absolute Lymphs (auto) Nucleated RBC % Differential Comment Diff Path Review Sodium Potassium Chloride Carbon Dioxide Anion Gap BUN Creatinine Estim Creat Clear Calc Est GFR (MDRD) Af Amer Est GFR (MDRD) Non-Af BUN/Creatinine Ratio Glucose Calcium Hep B Core Total Ab POC Glucose 168 H 161 H 137 H 07/25/19 07/25/19 07:35 07:35 WBC 4.1 L RBC 3.42 L Hgb 8.9 L Hct 29.7 L MCV 86.8 MCH 26.0 L MCHC 30.0 L RDW Std Deviation 51.0 H RDW Coeff of Andres 16.0 H Plt Count 139 L MPV 9.8 Immature Gran % (Auto) 0.500 Neut % (Auto) 64.6 Lymph % (Auto) 18.2 L [place] % (Auto) 11.3 H Eos % (Auto) 5.2 H Baso % (Auto) 0.2 Absolute Neuts (auto) 2.6 Absolute Lymphs (auto) 0.74 L Nucleated RBC % 0 Differential Comment COMMENT Diff Path Review Sodium 141 Potassium 3.4 L Chloride 105 Carbon Dioxide 27.0 Anion Gap 9 BUN 59 H Creatinine 3.81 H Estim Creat Clear Calc 14.88 Est GFR (MDRD) Af Amer 16 L Est GFR (MDRD) Non-Af 13 L BUN/Creatinine Ratio 15.5 Glucose 135 H Calcium 8.0 L Hep B Core Total Ab POC Glucose Microbiology 07/22/19 08:05 Blood Culture (Wb) - Anticubital Right Blood Culture - Preliminary No growth in 48 hours. 07/22/19 07:55 Urine Catheter - Gross Urine Culture - Final Culture exhibits no growth. 07/22/19 09:00 Blood Culture (Wb) - Arm Right Blood Culture - Preliminary No growth in 48 hours. 07/23/19 08:45 Stool Enteric Bacteriology - Final 07/23/19 08:45 Stool Stool Lactoferrin - Final Clinical Impression(s) from Imaging Studies Chest X-Ray 07/21/19 16:50 IMPRESSION: Bilateral perihilar infiltrates suggestive of pulmonary edema. Cardiomegaly. Electronically Signed: Rojas Spence MD at 17:23 EST , Service support , Chest X-Ray 07/22/19 05:55 IMPRESSION: Patchy ill-defined airspace opacities are seen in the right and left lungs may represent bilateral pneumonia or pulmonary edema are improved since the previous study. Electronically Signed: Silvia Sanchez, at 5:09 EST Tel , Service support , Chest X-Ray 07/23/19 05:55 IMPRESSION: Persistent pulmonary edema. Improved aeration of the left upper lobe. Electronically Signed: Wili Kruger, at 10:15 EST , Service support , Current Medications Acetaminophen (Tylenol) 650 mg PO Q6H PRN PRN PRN Reason: TEMP>101 Last Admin: 07/22/19 13:41 Dose: 650 mg Documented by: Albuterol/Ipratropium (Duoneb) 3 ml INHALATION Q6HWA.RT COUNT [facility]CLUDES [facility] Last Admin: 07/25/19 06:42 Dose: 3 ml Documented by: Amlodipine Besylate (Norvasc) 10 mg PO DAILY COUNT [facility]CLUD[facility] Last Admin: 07/24/19 09:40 Dose: 10 mg Documented by: Calamine/Phenol (Calmoseptine Ointment) 1 applic TOPICAL 4X/DAY PRN; Protocol PRN Reason: Excoriation Carvedilol (Coreg) 50 mg PO BID COUNT [facility]CLUDES [facility] Last Admin: 07/24/19 21:57 Dose: 50 mg Documented by: Dextrose (D50w Syringe) 0 gm IV X1 PRN; Protocol PRN Reason: Hypoglycemia Last Admin: 07/22/19 04:24 Dose: 12.5 gm Documented by: Furosemide (Lasix) 80 mg PO BID@1000,1800 [facility] Glucagon () 1 mg IM .X1 PRN PRN Reason: Hypoglycemia Heparin Sodium (Porcine) (Heparin Na) 5,000 unit SC Q8 COUNT [facility]CLUDES [facility] Last Admin: 07/25/19 05:55 Dose: 5,000 unit Documented by: Hydralazine HCl (Apresoline Iv) 10 mg IV Q6H PRN PRN PRN Reason: BLOOD PRESSURE Last Admin: 07/22/19 11:09 Dose: 10 mg Documented by: Insulin Human Lispro (Humalog Kwikpen (Bkc)) 0 unit SC Q6 [facility]; Protocol Last Admin: 07/25/19 05:55 Dose: Not Given Documented by: Lisinopril (Zestril) 40 mg PO DAILY COUNT [facility]CLUD[facility] Last Admin: 07/24/19 09:40 Dose: 40 mg Documented by: Loperamide HCl (Imodium) 2 mg PO Q4H PRN PRN PRN Reason: diarrhea Last Admin: 07/24/19 14:22 Dose: 2 mg Documented by: Nystatin (Mycostatin Powder) 1 applic TOPICAL BID COUNT [facility]CLUDES [facility]; Protocol Last Admin: 07/24/19 21:58 Dose: 1 applicatio Documented by: Potassium Chloride (K-Dur) 40 meq PO DAILYCM COUNT INCLUDES THE [facility] Last Admin: 07/25/19 08:45 Dose: 40 meq Documented by: Sodium Chloride () 10 - 40 ml IV UD PRN PRN Reason: SALINE FLUSH Last Admin: 07/25/19 06:02 Dose: 10 ml Documented by: Medical Necessity - Tobacco Use Smoking Status: Never smoker Tobacco Use: Non-smoker Assessment/Plan All Active Problems (Last Reviewed 04/03/19 @ 07:40 by Domonique Evangelista) Acute respiratory failure (Acute) Hx of arteriovenostomy for renal dialysis (Acute ~12/2018) Morbid obesity (Acute) Rheumatoid arthritis (Acute) Diabetes mellitus type 2 in obese (Acute) Broken arm (Acute) Obesity (Acute) High cholesterol (Acute) Asthma (Acute) Rheumatoid arthritis (Acute) Kidney failure (Acute) CHF (congestive heart failure) (Acute) EDNA (iron deficiency anemia) (Acute) RECOMMENDATIONS: 1. Continue scheduled Lasix and dialysis support per nephrology recommendations. 2. Wean supplemental oxygen via nasal cannula to maintain saturations at or above 90%. 3. The patient was strongly encouraged to utilize nocturnal BiPAP therapy. 4. Encourage incentive spirometer use and mobilize patient as tolerated. IMPRESSIONS: 1. Acute hypoxemic respiratory failure, likely secondary to Acute on chronic congestive heart failure Likely secondary to volume overloaded state in the setting of possible decompensated heart failure and chronic renal insufficiency. Although the patient was initially maintained on antimicrobials, they were subsequently discontinued after her bacterial infectious work-up was negative. However, the patient was noted to be positive for human metapneumovirus on her respiratory viral panel. Nephrology is following to assist with volume optimization through hemodialysis. The patient will be continued on Lasix as well. 2. Chronic renal insufficiency Continue volume optimization through hemodialysis and Lasix per nephrology recommendations. 3. Hypokalemia Electrolyte repletion as ordered. 4. Morbid obesity/suspected sleep disordered breathing/history of rheumatoid arthritis on chronic immunosuppression Complicates care, management, recovery and prognosis. Recommend continuing nocturnal BiPAP therapy while admitted to the hospital. The patient was strongly recommended to follow-up for outpatient polysomnogram. This note was generated with Pix[employer] dictation software. It may contain incorrect words, spelling, and punctuation that were not noted in checking the note before signing. Code Visit Inpatient E&M: 94592 Subs Hosp L2
[2019-07-25] MEDS: Carvedilol 25 MG Tablet 50 MG PO ×2 (11:22→21:46)
[2019-07-25] MEDS: Furosemide 80 MG Tablet PO ×2 (11:23→17:19)
[2019-07-25] MEDS: Lisinopril 40 MG Tablet PO (11:23)
[2019-07-25] MEDS: amLODIPine 10 MG Tablet PO (11:23)
[2019-07-25] MEDS: Nystatin Powder 15gm Bottle 1 APPLIC TOPICAL ×2 (11:23→21:47)
--- NOTE | 2019-07-25 12:04 | PN.RENAL_ITS ---
Patient Problems: Active and Suspected Problems (Last Reviewed 04/03/19 @ 07:40 by Domonique Evangelista) Acute respiratory failure (Acute) Subjective: Breathing and wheezing better, diarrhea resolved. - Physical Exam Vitals/I&O's: Vital Signs Temp Pulse Resp BP Pulse Ox 97.8 F 64 15 150/74 H 98 07/25/19 11:19 07/25/19 11:29 07/25/19 11:19 07/25/19 11:19 07/25/19 11:19 Oxygen Flow Rate (L/min) 4 Oxygen Delivery Method Nasal Cannula Weight: 111.3 kg Body Mass Index (BMI) 45.2 Intake and Output for Last 24 Hours 07/23/19 07/24/19 07/25/19 23:59 23:59 23:59 Intake Total 825 / 825 1080 / 1080 Output Total 5250 / 5250 1125 / 1125 Balance -4425 / -4425 -45 / -45 General: Alert, Oriented x3, Cooperative Lungs: Clear to auscultation Cardiovascular: Regular rate Abdomen: Bowel Sounds Present, Soft, Non Tender, Non-Distended Extremities: No edema Psych/Mental Status: Alert and oriented to time, place, person, mood and affect Microbiology Past 72 Hours 07/22/19 08:05 Blood Culture (Wb) - Anticubital Right Blood Culture - Preliminary No growth in 48 hours. 07/22/19 07:55 Urine Catheter - Gross Urine Culture - Final Culture exhibits no growth. 07/22/19 09:00 Blood Culture (Wb) - Arm Right Blood Culture - Preliminary No growth in 48 hours. 07/23/19 08:45 Stool Enteric Bacteriology - Final 07/23/19 08:45 Stool Stool Lactoferrin - Final 07/22/19 10:55 Mucosa - Nasopharyngeal Respiratory Panel (PCR) - Final Human [place] 07/22/19 08:10 Stool C. difficile DNA Amplification - Final Laboratory Results 07/24/19 16:14: POC Glucose 168 H 07/24/19 23:53: POC Glucose 161 H 07/25/19 05:54: POC Glucose 137 H 07/25/19 07:35: WBC 4.1 L, RBC 3.42 L, Hgb 8.9 L, Hct 29.7 L, MCV 86.8, MCH 26.0 L, MCHC 30.0 L, RDW Std Deviation 51.0 H, RDW Coeff of Andres 16.0 H, Plt Count 139 L, MPV 9.8, Immature Gran % (Auto) 0.500, Neut % (Auto) 64.6, Lymph % (Auto) 18.2 L, [place] % (Auto) 11.3 H, Eos % (Auto) 5.2 H, Baso % (Auto) 0.2, Absolute Neuts (auto) 2.6, Absolute Lymphs (auto) 0.74 L, Nucleated RBC % 0, Differential Comment COMMENT 07/25/19 07:35: Sodium 141, Potassium 3.4 L, Chloride 105, Carbon Dioxide 27.0, Anion Gap 9, BUN 59 H, Creatinine 3.81 H, Estim Creat Clear Calc 14.88, Est GFR (MDRD) Af Amer 16 L, Est GFR (MDRD) Non-Af 13 L, BUN/Creatinine Ratio 15.5, Glucose 135 H, Calcium 8.0 L Current Medications Acetaminophen (Tylenol) 650 mg PO Q6H PRN PRN PRN Reason: TEMP>101 Last Admin: 07/22/19 13:41 Dose: 650 mg Documented by: Albuterol/Ipratropium (Duoneb) 3 ml INHALATION Q6HWA.RT [facility] Last Admin: 07/25/19 06:42 Dose: 3 ml Documented by: Amlodipine Besylate (Norvasc) 10 mg PO DAILY [facility] Last Admin: 07/25/19 11:23 Dose: 10 mg Documented by: Calamine/Phenol (Calmoseptine Ointment) 1 applic TOPICAL 4X/DAY PRN; Protocol PRN Reason: Excoriation Carvedilol (Coreg) 50 mg PO BID [facility] Last Admin: 07/25/19 11:22 Dose: 50 mg Documented by: Dextrose (D50w Syringe) 0 gm IV X1 PRN; Protocol PRN Reason: Hypoglycemia Last Admin: 07/22/19 04:24 Dose: 12.5 gm Documented by: Furosemide (Lasix) 80 mg PO BID@1000,1800 [facility] Last Admin: 07/25/19 11:23 Dose: 80 mg Documented by: Glucagon () 1 mg IM .X1 PRN PRN Reason: Hypoglycemia Heparin Sodium (Porcine) (Heparin Na) 5,000 unit SC Q8 [facility] Last Admin: 07/25/19 05:55 Dose: 5,000 unit Documented by: Hydralazine HCl (Apresoline Iv) 10 mg IV Q6H PRN PRN PRN Reason: BLOOD PRESSURE Last Admin: 07/22/19 11:09 Dose: 10 mg Documented by: Insulin Human Lispro (Humalog Kwikpen (Bkc)) 0 unit SC Q6 [facility]; Protocol Last Admin: 07/25/19 05:55 Dose: Not Given Documented by: Lisinopril (Zestril) 40 mg PO DAILY [facility] Last Admin: 07/25/19 11:23 Dose: 40 mg Documented by: Loperamide HCl (Imodium) 2 mg PO Q4H PRN PRN PRN Reason: diarrhea Last Admin: 07/24/19 14:22 Dose: 2 mg Documented by: Nystatin (Mycostatin Powder) 1 applic TOPICAL BID [facility]; Protocol Last Admin: 07/25/19 11:23 Dose: 1 applicatio Documented by: Potassium Chloride (K-Dur) 40 meq PO DAILYCM [facility] Last Admin: 07/25/19 08:45 Dose: 40 meq Documented by: Sodium Chloride () 10 - 40 ml IV UD PRN PRN Reason: SALINE FLUSH Last Admin: 07/25/19 06:02 Dose: 10 ml Documented by: Medical Necessity - Tobacco Use Smoking Status: Never smoker Tobacco Use: Non-smoker Assessment/Plan All Active Problems (Last Reviewed 04/03/19 @ 07:40 by Domonique Evangelista) Acute respiratory failure (Acute) Hx of arteriovenostomy for renal dialysis (Acute ~12/2018) Morbid obesity (Acute) Rheumatoid arthritis (Acute) Diabetes mellitus type 2 in obese (Acute) Broken arm (Acute) Obesity (Acute) High cholesterol (Acute) Asthma (Acute) Rheumatoid arthritis (Acute) Kidney failure (Acute) CHF (congestive heart failure) (Acute) EDNA (iron deficiency anemia) (Acute) 1. Acute on CKD stage IV vs progressed to ESRD with underlying diabetic nephropathy. Hold dialysis today. Check 24h urine 2. Acute respiratory failure due to pulmonary edema, human meta. virus pneumonia improving 3. Diabetes mellitus type 2 primary service management 4. Hypertention stable 5. Anemia hgb stable 6. AVF left forearm use new fistula protocol 7. change iv lasix to po 80mg twice a day
[2019-07-25] MEDS: Insulin Lispro 100 UNIT/ML INSULN.PEN SC ×3 (12:06→23:56)
[2019-07-25 12:15] LABS: Bedside Glucose 191 mg/dL (70-110)
--- NOTE | 2019-07-25 12:23 | PN_ITS ---
Patient Problems: Active and Suspected Problems (Last Reviewed 04/03/19 @ 07:40 by Domonique Evangelista) Acute respiratory failure (Acute) Subjective: Patient seen and examined. She feels much better today. Shortness of breath is improving. Cough is also resolving. She denies any palpitations or dizziness. Review of systems otherwise negative. Labs and vitals reviewed. Vitals/I&O's: Vital Signs Temp Pulse Resp BP Pulse Ox 97.8 F 64 15 150/74 H 98 07/25/19 11:19 07/25/19 11:29 07/25/19 11:19 07/25/19 11:19 07/25/19 11:19 Oxygen Flow Rate (L/min) 4 Oxygen Delivery Method Nasal Cannula Weight: 245 lb 5.992 oz Body Mass Index (BMI) 45.2 Intake and Output for Last 24 Hours 07/23/19 07/24/19 07/25/19 23:59 23:59 23:59 Intake Total 825 / 825 1080 / 1080 520 / 520 Output Total 5250 / 5250 1125 / 1125 500 / 500 Balance -4425 / -4425 -45 / -45 General: Alert, Oriented x3, Cooperative, HEENT: Atraumatic, PERRLA, EOMI, Normocephalic Oral: Dry Mucosa Neck: Supple, No JVD, Negative Carotid Bruits Lungs: - - Decreased breath sounds bilaterally. no wheezes or crackles. on 4L of oxygen Cardiovascular: Regular rate, Regular Rhythm, Normal S1, Normal S2, No murmurs Abdomen: Bowel Sounds Present, Soft, Non Tender, Non-Distended, No Hepato- splenomegaly Extremities: No clubbing, No cyanosis, Capillary Refill Less than 3 Seconds, no edema Skin: No rashes, No breakdown Musculoskeletal: No Tenderness to Palpation of Joints or Extremities Lymphatic: No Cervical, Supraclavicular, or Inguinal Adenopathy Neurological: Cranial nerves II-XII grossly intact, Neuro grossly intact, Motor Exam 5/5 strength throughout Psych/Mental Status: Normal Affect, Appropriate, Alert and oriented to time, place, person, mood and affect Microbiology Past 72 Hours 07/22/19 08:05 Blood Culture (Wb) - Anticubital Right Blood Culture - Preliminary No growth in 48 hours. 07/22/19 07:55 Urine Catheter - Gross Urine Culture - Final Culture exhibits no growth. 07/22/19 09:00 Blood Culture (Wb) - Arm Right Blood Culture - Preliminary No growth in 48 hours. 07/23/19 08:45 Stool Enteric Bacteriology - Final 07/23/19 08:45 Stool Stool Lactoferrin - Final 07/22/19 10:55 Mucosa - Nasopharyngeal Respiratory Panel (PCR) - Final Human [place] 07/22/19 08:10 Stool C. difficile DNA Amplification - Final Laboratory Results 07/24/19 16:14: POC Glucose 168 H 07/24/19 23:53: POC Glucose 161 H 07/25/19 05:54: POC Glucose 137 H 07/25/19 07:35: WBC 4.1 L, RBC 3.42 L, Hgb 8.9 L, Hct 29.7 L, MCV 86.8, MCH 26.0 L, MCHC 30.0 L, RDW Std Deviation 51.0 H, RDW Coeff of Andres 16.0 H, Plt Count 139 L, MPV 9.8, Immature Gran % (Auto) 0.500, Neut % (Auto) 64.6, Lymph % (Auto) 18.2 L, [place] % (Auto) 11.3 H, Eos % (Auto) 5.2 H, Baso % (Auto) 0.2, Absolute Neuts (auto) 2.6, Absolute Lymphs (auto) 0.74 L, Nucleated RBC % 0, Differential Comment COMMENT 07/25/19 07:35: Sodium 141, Potassium 3.4 L, Chloride 105, Carbon Dioxide 27.0, Anion Gap 9, BUN 59 H, Creatinine 3.81 H, Estim Creat Clear Calc 14.88, Est GFR (MDRD) Af Amer 16 L, Est GFR (MDRD) Non-Af 13 L, BUN/Creatinine Ratio 15.5, Glucose 135 H, Calcium 8.0 L 07/25/19 12:04: POC Glucose 191 H Current Medications Acetaminophen (Tylenol) 650 mg PO Q6H PRN PRN PRN Reason: TEMP>101 Last Admin: 07/22/19 13:41 Dose: 650 mg Documented by: Albuterol/Ipratropium (Duoneb) 3 ml INHALATION Q6HWA.RT [facility] Last Admin: 07/25/19 06:42 Dose: 3 ml Documented by: Amlodipine Besylate (Norvasc) 10 mg PO DAILY [facility] Last Admin: 07/25/19 11:23 Dose: 10 mg Documented by: Calamine/Phenol (Calmoseptine Ointment) 1 applic TOPICAL 4X/DAY PRN; Protocol PRN Reason: Excoriation Carvedilol (Coreg) 50 mg PO BID [facility] Last Admin: 07/25/19 11:22 Dose: 50 mg Documented by: Dextrose (D50w Syringe) 0 gm IV X1 PRN; Protocol PRN Reason: Hypoglycemia Last Admin: 07/22/19 04:24 Dose: 12.5 gm Documented by: Furosemide (Lasix) 80 mg PO BID@1000,1800 [facility] Last Admin: 07/25/19 11:23 Dose: 80 mg Documented by: Glucagon () 1 mg IM .X1 PRN PRN Reason: Hypoglycemia Heparin Sodium (Porcine) (Heparin Na) 5,000 unit SC Q8 [facility] Last Admin: 07/25/19 05:55 Dose: 5,000 unit Documented by: Hydralazine HCl (Apresoline Iv) 10 mg IV Q6H PRN PRN PRN Reason: BLOOD PRESSURE Last Admin: 07/22/19 11:09 Dose: 10 mg Documented by: Insulin Human Lispro (Humalog Kwikpen (Bkc)) 0 unit SC Q6 [facility]; Protocol Last Admin: 07/25/19 12:06 Dose: 2 unit Documented by: Lisinopril (Zestril) 40 mg PO DAILY [facility] Last Admin: 07/25/19 11:23 Dose: 40 mg Documented by: Loperamide HCl (Imodium) 2 mg PO Q4H PRN PRN PRN Reason: diarrhea Last Admin: 07/24/19 14:22 Dose: 2 mg Documented by: Nystatin (Mycostatin Powder) 1 applic TOPICAL BID [facility]; Protocol Last Admin: 07/25/19 11:23 Dose: 1 applicatio Documented by: [facility] Last Admin: 07/25/19 08:45 Dose: 40 meq Documented by: Sodium Chloride () 10 - 40 ml IV UD PRN PRN Reason: SALINE FLUSH Last Admin: 07/25/19 06:02 Dose: 10 ml Documented by: STROKE Vital Signs/Narrative: Vital Signs Temp Pulse Resp BP Pulse Ox 07/25/19 11:29 64 07/25/19 11:19 97.8 F 65 15 150/74 H 98 Medical Necessity - Tobacco Use Smoking Status: Never smoker Tobacco Use: Non-smoker Assessment/Plan All Active Problems (Last Reviewed 04/03/19 @ 07:40 by Domonique Evangelista) Acute respiratory failure (Acute) Hx of arteriovenostomy for renal dialysis (Acute ~12/2018) Morbid obesity (Acute) Rheumatoid arthritis (Acute) Diabetes mellitus type 2 in obese (Acute) Broken arm (Acute) Obesity (Acute) High cholesterol (Acute) Asthma (Acute) Rheumatoid arthritis (Acute) Kidney failure (Acute) CHF (congestive heart failure) (Acute) EDNA (iron deficiency anemia) (Acute) 1. Acute hypoxic respiratory failure due to fluid overload and acute exacerbation of heart failure as well as community acquired pneumonia * resolving. now on 4L of oxygen. * 2D echo: EF of 55%, with stage 2 diastolic dysfunction, mildly dilated RV and PA pressure of 30mmHg. LVSF is normal * now on lasix 80mg PO bid * cardiology and nephrology as well as pulmonology on board * in cumulative negative balance by 11.7L since admission * continue breathing treatments and steroids * per nephrology, to hold off on dialysis today. Nephrology to decide whether patient will need long-term dialysis or otherwise. * 2. CKD 4: * fistula in LUE; having regular dialysis for fluid overload as under 1. * as under 1 3. Acute on chronic heart failure with reduced EF * cardiology on board * on PO lasix 80mg bid * 2D echo as under 1, with EF of 55% * 4. diarrhea: resolved. C Diff negative. on loperamide 5. Hypertension: on coreg, lisinopril and amlodipine. fairly controlled. 6. Hyperlipidemia: On statin. 7. Pancytopenia: * platelets now up to 139, wbc is 4.1. hb is 8.9 * will monitor 8. History of asthma: Breathing treatments. 9. Rheumatoid arthritis: On abatacept. Follow-up with rheumatology on discharge. 10. Type 2 diabetes mellitus: On insulin degludec 9 6 units nightly. On insulin sliding scale. Accu-Cheks AC at bedtime. DVT prophylaxis:heparin Disposition: will need placement Code Visit Inpatient E&M: 79381 Subs Hosp L2
--- NOTE | 2019-07-25 12:42 | CASEMGMT ---
Per Dr. Jernigan, pt wants [facility], not [facility] and after checking, both are in-network. This RN CM to room to discuss with pt and pt states that she got confused initially and that she does want [facility] and has already been through education at the [facility]. This RN CM placed a call to [facility] to cancel referral at this time. Referral faxed to local [facility] as well as corporate at this time as the [facility] portal is not working for this RN CM at this time. Call to Sumanth at [facility] and he states that pt can have a TTS 0630 or 1210 chair time. This RN CM to room and pt states that she would like the 1210 chair time at this time. Per Dr. Jernigan, pt will most likely be here through the weekend as she needs a 24hr urine and we are still awaiting insurance approval for dialysis. Pt is on 4liters oxygen at this time. She was provided with a list of in-network DME companies and states would like [employer] if she qualifies for home oxygen at discharge. CM to follow for dialysis financial approval and home oxygen need. SSteloy RN CM
--- NOTE | 2019-07-25 16:22 | CASEMGMT ---
RN CM NOTE: Call received from [employer] [facility] re: admission information. Message left @ [phone] to notify that this admission has been cancelled. Call back information given for questions. Maura OLIVARES RN ACM
[2019-07-25 17:16] LABS: Bedside Glucose 176 mg/dL (70-110)
--- NOTE | 2019-07-25 22:44 | CPS ---
pt declines bipap
[2019-07-26] VITALS (13 sets, daily range): BP systolic 143–174; BP diastolic 59–82; PULSE 59–71; RESP 16–20; TEMP 36.2–37; O2SAT 94–100
[2019-07-26 00:06] LABS: Bedside Glucose 222 mg/dL (70-110)
[2019-07-26] MEDS: Heparin Injection (Vial) 5,000 UNIT/ML VIAL 5000 UNIT SC ×3 (06:03→22:45)
[2019-07-26] MEDS: Insulin Lispro 100 UNIT/ML INSULN.PEN SC ×4 (06:04→22:50)
[2019-07-26 06:16] LABS: Bedside Glucose 210 mg/dL (70-110)
[2019-07-26] MEDS: Ipratropium/Albuterol Sulfate 3 ML AMPUL.NEB INHALATION ×3 (07:21→18:53)
[2019-07-26 07:24] LABS: Albumin, Serum 1.9 g/dL (3.2-5.0); BUN 67 mg/dL (7-18); BUN/Creat Ratio 17.2 RATIO (10-20); Calcium,Total 7.7 mg/dL (8.5-10.1); Chloride 106 mmol/L (98-107); EST Glomerular Filtration Rate 13 mL/min (>60); Est Glom Filt Rate - Afr Amer 15 mL/min (>60); Estimated Creatinine Clearance 14.54 ml/min; Glucose 217 mg/dL (74-106); Phosphorus 4.1 mg/dL (2.5-4.9); Potassium 3.7 mmol/L (3.5-5.1); Sodium Level 140 mmol/L (136-145)
--- NOTE | 2019-07-26 09:49 | CM.UR ---
Rounded with Dr. Maravilla on this patient. Dr. Maravilla is recommending SNF placement at discharge. Per report patient to go home so went to discuss with patient. the patient states that she really doesn't want to go to SNF. States that she would prefer home to sleep and then report to the class she needs to attend. explained that would be like OP therapy but that HHC might be an option as well. Just states she is eager to sleep in her own bed. confirmed that she does live alone. Explained I would review her chart and will discuss further. Remains on 3 liters o2 per nc and is 100%. LACE score is a 3. Therapy did show she only walked 3 feet at evaluation. Patient will be here through weekend as no auth for dialysis yet. Marie Carey RN, CCM.
--- NOTE | 2019-07-26 10:01 | PN_ITS ---
Patient Problems: Active and Suspected Problems (Last Reviewed 04/03/19 @ 07:40 by Domonique Evangelista) Acute respiratory failure (Acute) Subjective: The patient was seen and examined at the bedside this morning. Events from the last 24 hours have been reviewed. The patient is currently afebrile, hemodynamically stable and maintaining appropriate oxygen saturations on 3 L/min via nasal cannula. She is currently documented to be overall net -11.6 L for the admission. Objective: The patient's most recent lab work, culture data and imaging studies have all been personally reviewed. Surface echocardiogram revealed normal LV size and function with an ejection fraction of 55% and stage II diastolic dysfunction. Pulmonary artery systolic pressure was estimated to be 30 mmHg. Strep and urine Legionella antigens were both negative. C. difficile was negative. Respiratory viral panel was positive for human metapneumovirus. Fecal leukocytes were negative and enteric panel was negative. Blood and urine cultures have revealed no growth to date. - Physical Exam Vitals/I&O's: Vital Signs Temp Pulse Resp BP Pulse Ox 97.1 F L 62 16 150/70 H 100 07/26/19 08:07 07/26/19 08:07 07/26/19 08:07 07/26/19 08:07 07/26/19 08:07 Oxygen Flow Rate (L/min) 3 Oxygen Delivery Method Nasal Cannula Weight: 250 lb 3.594 oz Body Mass Index (BMI) 45.2 Intake and Output for Last 24 Hours 07/24/19 07/25/19 07/26/19 23:59 23:59 23:59 Intake Total 1080 / 1080 760 / 760 240 / 240 Output Total 1125 / 1125 1000 / 1000 Balance -45 / -45 -240 / -240 240 / 240 General: Alert, Cooperative, No apparent distress HEENT: Atraumatic, PERRLA, Normocephalic Oral: No Gingival or Mucosal Lesions/ Ulcerations Neck: Supple, No Nodes, Trachea Midline Lungs: No rhonchi, No wheeze, No rales, Diminished Cardiovascular: Regular rate, Regular Rhythm, Normal S1, Normal S2 Abdomen: Bowel Sounds Present, Soft, Non Tender, Obese Extremities: No clubbing, No cyanosis, No edema Skin: No breakdown Musculoskeletal: No Tenderness to Palpation of Joints or Extremities, No Muscle Wasting Lymphatic: No Cervical, Supraclavicular, or Inguinal Adenopathy Neurological: Cranial nerves II-XII grossly intact, Neuro grossly intact Psych/Mental Status: Alert and oriented to time, place, person, mood and affect Labs (Last 48 Hours) 07/24/19 07/24/19 07/24/19 11:20 16:14 23:53 WBC RBC Hgb Hct MCV MCH MCHC RDW Std Deviation RDW Coeff of Andres Plt Count MPV Immature Gran % (Auto) Neut % (Auto) Lymph % (Auto) [place] % (Auto) Eos % (Auto) Baso % (Auto) Absolute Neuts (auto) Absolute Lymphs (auto) Nucleated RBC % Differential Comment Sodium Potassium Chloride Carbon Dioxide Anion Gap BUN Creatinine Estim Creat Clear Calc Est GFR (MDRD) Af Amer Est GFR (MDRD) Non-Af BUN/Creatinine Ratio Glucose Calcium Phosphorus Albumin POC Glucose 147 H 168 H 161 H 07/25/19 07/25/19 07/25/19 05:54 07:35 07:35 WBC 4.1 L RBC 3.42 L Hgb 8.9 L Hct 29.7 L MCV 86.8 MCH 26.0 L MCHC 30.0 L RDW Std Deviation 51.0 H RDW Coeff of Andres 16.0 H Plt Count 139 L MPV 9.8 Immature Gran % (Auto) 0.500 Neut % (Auto) 64.6 Lymph % (Auto) 18.2 L [place] % (Auto) 11.3 H Eos % (Auto) 5.2 H Baso % (Auto) 0.2 Absolute Neuts (auto) 2.6 Absolute Lymphs (auto) 0.74 L Nucleated RBC % 0 Differential Comment COMMENT Sodium 141 Potassium 3.4 L Chloride 105 Carbon Dioxide 27.0 Anion Gap 9 BUN 59 H Creatinine 3.81 H Estim Creat Clear Calc 14.88 Est GFR (MDRD) Af Amer 16 L Est GFR (MDRD) Non-Af 13 L BUN/Creatinine Ratio 15.5 Glucose 135 H Calcium 8.0 L Phosphorus Albumin POC Glucose 137 H 07/25/19 07/25/19 07/25/19 12:04 17:13 23:54 WBC RBC Hgb Hct MCV MCH MCHC RDW Std Deviation RDW Coeff of Andres Plt Count MPV Immature Gran % (Auto) Neut % (Auto) Lymph % (Auto) [place] % (Auto) Eos % (Auto) Baso % (Auto) Absolute Neuts (auto) Absolute Lymphs (auto) Nucleated RBC % Differential Comment Sodium Potassium Chloride Carbon Dioxide Anion Gap BUN Creatinine Estim Creat Clear Calc Est GFR (MDRD) Af Amer Est GFR (MDRD) Non-Af BUN/Creatinine Ratio Glucose Calcium Phosphorus Albumin POC Glucose 191 H 176 H 222 H 07/26/19 07/26/19 05:24 06:01 WBC RBC Hgb Hct MCV MCH MCHC RDW Std Deviation RDW Coeff of Andres Plt Count MPV Immature Gran % (Auto) Neut % (Auto) Lymph % (Auto) [place] % (Auto) Eos % (Auto) Baso % (Auto) Absolute Neuts (auto) Absolute Lymphs (auto) Nucleated RBC % Differential Comment Sodium 140 Potassium 3.7 Chloride 106 Carbon Dioxide 26.0 Anion Gap BUN 67 H Creatinine 3.90 H Estim Creat Clear Calc 14.54 Est GFR (MDRD) Af Amer 15 L Est GFR (MDRD) Non-Af 13 L BUN/Creatinine Ratio 17.2 Glucose 217 H Calcium 7.7 L Phosphorus 4.1 Albumin 1.9 L POC Glucose 210 H Microbiology 07/22/19 08:05 Blood Culture (Wb) - Anticubital Right Blood Culture - Preliminary No growth in 48 hours. 07/22/19 07:55 Urine Catheter - Gross Urine Culture - Final Culture exhibits no growth. 07/22/19 09:00 Blood Culture (Wb) - Arm Right Blood Culture - Preliminary No growth in 48 hours. Clinical Impression(s) from Imaging Studies Chest X-Ray 07/21/19 16:50 IMPRESSION: Bilateral perihilar infiltrates suggestive of pulmonary edema. Cardiomegaly. Electronically Signed: Rojas Spence MD at 17:23 EST , Service support , Chest X-Ray 07/22/19 05:55 IMPRESSION: Patchy ill-defined airspace opacities are seen in the right and left lungs may represent bilateral pneumonia or pulmonary edema are improved since the previous study. Electronically Signed: Silvia Sanchez, at 5:09 EST Tel , Service support , Chest X-Ray 07/23/19 05:55 IMPRESSION: Persistent pulmonary edema. Improved aeration of the left upper lobe. Electronically Signed: Wili Kruger, at 10:15 EST , Service support , Chest X-Ray 07/25/19 09:35 IMPRESSION: Cardiomegaly and mild residual CHF. Electronically Signed: Wili Kruger, at 15:40 EST , Service support , Current Medications Acetaminophen (Tylenol) 650 mg PO Q6H PRN PRN PRN Reason: TEMP>101 Last Admin: 07/22/19 13:41 Dose: 650 mg Documented by: Albuterol/Ipratropium (Duoneb) 3 ml INHALATION Q6HWA.RT [facility] Last Admin: 07/26/19 07:21 Dose: 3 ml Documented by: Amlodipine Besylate (Norvasc) 10 mg PO DAILY [facility] Last Admin: 07/25/19 11:23 Dose: 10 mg Documented by: Calamine/Phenol (Calmoseptine Ointment) 1 applic TOPICAL 4X/DAY PRN; Protocol PRN Reason: Excoriation Carvedilol (Coreg) 50 mg PO BID [facility] Last Admin: 07/25/19 21:46 Dose: 50 mg Documented by: Dextrose (D50w Syringe) 0 gm IV X1 PRN; Protocol PRN Reason: Hypoglycemia Last Admin: 07/22/19 04:24 Dose: 12.5 gm Documented by: Furosemide (Lasix) 40 mg PO BID@1000,1800 [facility] Glucagon () 1 mg IM .X1 PRN PRN Reason: Hypoglycemia Heparin Sodium (Porcine) (Heparin Na) 5,000 unit SC Q8 [facility] Last Admin: 07/26/19 06:03 Dose: 5,000 unit Documented by: Hydralazine HCl (Apresoline Iv) 10 mg IV Q6H PRN PRN PRN Reason: BLOOD PRESSURE Last Admin: 07/22/19 11:09 Dose: 10 mg Documented by: Insulin Human Lispro (Humalog Kwikpen (Bkc)) 0 unit SC Q6 [facility]; Protocol Last Admin: 07/26/19 06:04 Dose: 2 unit Documented by: Lisinopril (Zestril) 40 mg PO DAILY [facility] Last Admin: 07/25/19 11:23 Dose: 40 mg Documented by: Loperamide HCl (Imodium) 2 mg PO Q4H PRN PRN PRN Reason: diarrhea Last Admin: 07/24/19 14:22 Dose: 2 mg Documented by: Nystatin (Mycostatin Powder) 1 applic TOPICAL BID [facility]; Protocol Last Admin: 07/25/19 21:47 Dose: 1 applicatio Documented by: Potassium Chloride (K-Dur) 40 meq PO DAILYCM [facility] Last Admin: 07/25/19 08:45 Dose: 40 meq Documented by: Sodium Chloride () 10 - 40 ml IV UD PRN PRN Reason: SALINE FLUSH Last Admin: 07/25/19 06:02 Dose: 10 ml Documented by: Medical Necessity - Tobacco Use Smoking Status: Never smoker Tobacco Use: Non-smoker Assessment/Plan All Active Problems (Last Reviewed 04/03/19 @ 07:40 by Domonique Evangelista) Acute respiratory failure (Acute) Hx of arteriovenostomy for renal dialysis (Acute ~12/2018) Morbid obesity (Acute) Rheumatoid arthritis (Acute) Diabetes mellitus type 2 in obese (Acute) Broken arm (Acute) Obesity (Acute) High cholesterol (Acute) Asthma (Acute) Rheumatoid arthritis (Acute) Kidney failure (Acute) CHF (congestive heart failure) (Acute) EDNA (iron deficiency anemia) (Acute) RECOMMENDATIONS: 1. Continue scheduled Lasix and dialysis support per nephrology recommendations. 2. Wean supplemental oxygen via nasal cannula to maintain saturations at or above 90%. 3. The patient was strongly encouraged to utilize nocturnal BiPAP therapy. 4. Encourage incentive spirometer use and mobilize patient as tolerated. 5. Outpatient pulmonary follow-up to undergo diagnostic polysomnogram, if the patient is agreeable to testing. 6. Given the lack of further ICU needs, will sign off. IMPRESSIONS: 1. Acute hypoxemic respiratory failure, likely secondary to Acute on chronic congestive heart failure Likely secondary to volume overloaded state in the setting of possible decompensated heart failure and chronic renal insufficiency. Although the patient was initially maintained on antimicrobials, they were subsequently discontinued after her bacterial infectious work-up was negative. However, the patient was noted to be positive for human metapneumovirus on her respiratory viral panel. Nephrology is following to assist with volume optimization through hemodialysis. The patient will be continued on Lasix as well. 2. Chronic renal insufficiency Continue volume optimization through hemodialysis and Lasix per nephrology recommendations. 3. Morbid obesity/suspected sleep disordered breathing/history of rheumatoid arthritis on chronic immunosuppression Complicates care, management, recovery and prognosis. Recommend continuing nocturnal BiPAP therapy while admitted to the hospital. The patient was strongly recommended to follow-up for outpatient polysomnogram. This note was generated with [employer] dictation software. It may contain incorrect words, spelling, and punctuation that were not noted in checking the note before signing. Code Visit Inpatient E&M: 25124 Subs Hosp L2
[2019-07-26] MEDS: Furosemide 40 MG Tablet PO (10:11)
[2019-07-26] MEDS: amLODIPine 10 MG Tablet PO (10:11)
[2019-07-26] MEDS: Lisinopril 40 MG Tablet PO (10:11)
[2019-07-26] MEDS: Carvedilol 25 MG Tablet 50 MG PO ×2 (10:11→20:37)
--- NOTE | 2019-07-26 10:57 | PCM.PN.HOSP ---
Patient Problems: Active and Suspected Problems (Last Reviewed 04/03/19 @ 07:40 by Domonique Evangelista) Acute respiratory failure (Acute) Subjective: Patient seen and examined. She feels well today and has no complaints. Review of systems otherwise negative. Shortness of breath has improved. She did not have dialysis yesterday, per nephrology. Review of systems otherwise negative. T. Vitals/I&O's: Vital Signs Temp Pulse Resp BP Pulse Ox 97.1 F L 62 16 150/70 H 100 07/26/19 08:07 07/26/19 08:07 07/26/19 08:07 07/26/19 08:07 07/26/19 08:07 Oxygen Flow Rate (L/min) 3 Oxygen Delivery Method Nasal Cannula Weight: 250 lb 3.594 oz Body Mass Index (BMI) 45.2 Intake and Output for Last 24 Hours 07/24/19 07/25/19 07/26/19 23:59 23:59 23:59 Intake Total 1080 / 1080 760 / 760 240 / 240 Output Total 1125 / 1125 1000 / 1000 Balance -45 / -45 -240 / -240 240 / 240 General: Alert, Oriented x3, Cooperative, HEENT: Atraumatic, PERRLA, EOMI, Normocephalic Oral: Dry Mucosa Neck: Supple, No JVD, Negative Carotid Bruits Lungs: - - Decreased breath sounds bilaterally. no wheezes or crackles. on 3L of oxygen Cardiovascular: Regular rate, Regular Rhythm, Normal S1, Normal S2, No murmurs Abdomen: Bowel Sounds Present, Soft, Non Tender, Non-Distended, No Hepato-splenomegaly Extremities: No clubbing, No cyanosis, Capillary Refill Less than 3 Seconds, no edema Skin: No rashes, No breakdown Musculoskeletal: No Tenderness to Palpation of Joints or Extremities Lymphatic: No Cervical, Supraclavicular, or Inguinal Adenopathy Neurological: Cranial nerves II-XII grossly intact, Neuro grossly intact, Motor Exam 5/5 strength throughout Psych/Mental Status: Normal Affect, Appropriate, Alert and oriented to time, place, person, mood and affect Microbiology Past 72 Hours 07/22/19 08:05 Blood Culture (Wb) - Anticubital Right Blood Culture - Preliminary No growth in 48 hours. 07/22/19 07:55 Urine Catheter - Gross Urine Culture - Final Culture exhibits no growth. 07/22/19 09:00 Blood Culture (Wb) - Arm Right Blood Culture - Preliminary No growth in 48 hours. 07/23/19 08:45 Stool Enteric Bacteriology - Final 07/23/19 08:45 Stool Stool Lactoferrin - Final Laboratory Results 07/25/19 12:04: POC Glucose 191 H 07/25/19 17:13: POC Glucose 176 H 07/25/19 23:54: POC Glucose 222 H 07/26/19 05:24: Sodium 140, Potassium 3.7, Chloride 106, Carbon Dioxide 26.0, BUN 67 H, Creatinine 3.90 H, Estim Creat Clear Calc 14.54, Est GFR (MDRD) Af Amer 15 L, Est GFR (MDRD) Non-Af 13 L, BUN/Creatinine Ratio 17.2, Glucose 217 H, Calcium 7.7 L, Phosphorus 4.1, Albumin 1.9 L 07/26/19 06:01: POC Glucose 210 H Diagnostic Data Chest X-Ray 07/25/19 09:35 IMPRESSION: Cardiomegaly and mild residual CHF. Electronically Signed: Wili Kruger, at 15:40 EST , Service support , Current Medications Acetaminophen (Tylenol) 650 mg PO Q6H PRN PRN PRN Reason: TEMP>101 Last Admin: 07/22/19 13:41 Dose: 650 mg Documented by: Albuterol/Ipratropium (Duoneb) 3 ml INHALATION Q6HWA.RT [facility] Last Admin: 07/26/19 07:21 Dose: 3 ml Documented by: Amlodipine Besylate (Norvasc) 10 mg PO DAILY [facility] Last Admin: 07/26/19 10:11 Dose: 10 mg Documented by: Calamine/Phenol (Calmoseptine Ointment) 1 applic TOPICAL 4X/DAY PRN; Protocol PRN Reason: Excoriation Carvedilol (Coreg) 50 mg PO BID [facility] Last Admin: 07/26/19 10:11 Dose: 50 mg Documented by: Dextrose (D50w Syringe) 0 gm IV X1 PRN; Protocol PRN Reason: Hypoglycemia Last Admin: 07/22/19 04:24 Dose: 12.5 gm Documented by: Furosemide (Lasix) 40 mg PO BID@1000,1800 [facility] Last Admin: 07/26/19 10:11 Dose: 40 mg Documented by: Glucagon () 1 mg IM .X1 PRN PRN Reason: Hypoglycemia Heparin Sodium (Porcine) (Heparin Na) 5,000 unit SC Q8 [facility] Last Admin: 07/26/19 06:03 Dose: 5,000 unit Documented by: Hydralazine HCl (Apresoline Iv) 10 mg IV Q6H PRN PRN PRN Reason: BLOOD PRESSURE Last Admin: 07/22/19 11:09 Dose: 10 mg Documented by: Insulin Human Lispro (Humalog Kwikpen (Bkc)) 0 unit SC Q6 [facility]; Protocol Last Admin: 07/26/19 06:04 Dose: 2 unit Documented by: Lisinopril (Zestril) 40 mg PO DAILY [facility] Last Admin: 07/26/19 10:11 Dose: 40 mg Documented by: Loperamide HCl (Imodium) 2 mg PO Q4H PRN PRN PRN Reason: diarrhea Last Admin: 07/24/19 14:22 Dose: 2 mg Documented by: Nystatin (Mycostatin Powder) 1 applic TOPICAL BID [facility]; Protocol Last Admin: 07/26/19 10:12 Dose: Not Given Documented by: Potassium Chloride (K-Dur) 40 meq PO DAILYCM [facility] Last Admin: 07/26/19 10:11 Dose: 40 meq Documented by: Sodium Chloride () 10 - 40 ml IV UD PRN PRN Reason: SALINE FLUSH Last Admin: 07/25/19 06:02 Dose: 10 ml Documented by: STROKE Vital Signs/Narrative: Vital Signs Temp Pulse Resp BP Pulse Ox 07/26/19 08:07 97.1 F L 62 16 150/70 H 100 07/26/19 07:22 67 18 96 07/26/19 07:05 59 L Medical Necessity - Tobacco Use Smoking Status: Never smoker Tobacco Use: Non-smoker Assessment/Plan All Active Problems (Last Reviewed 04/03/19 @ 07:40 by Domonique Evangelista) Acute respiratory failure (Acute) Hx of arteriovenostomy for renal dialysis (Acute ~12/2018) Morbid obesity (Acute) Rheumatoid arthritis (Acute) Diabetes mellitus type 2 in obese (Acute) Broken arm (Acute) Obesity (Acute) High cholesterol (Acute) Asthma (Acute) Rheumatoid arthritis (Acute) Kidney failure (Acute) CHF (congestive heart failure) (Acute) EDNA (iron deficiency anemia) (Acute) 1. Acute hypoxic respiratory failure due to fluid overload and acute exacerbation of heart failure as well as community acquired pneumonia resolving. now on 3L of oxygen. 2D echo: EF of 55%, with stage 2 diastolic dysfunction, mildly dilated RV and PA pressure of 30mmHg. LVSF is normal now on lasix 40mg bid cardiology and nephrology as well as pulmonology on board in cumulative negative balance by 11.7L since admission continue breathing treatments and steroids didnt have dialysis yesterday, nephrology to decide if she is going to need intermediate manager dialysis. 2. ESRD now she is on dialysis, she is ESRD. didnt have dialysis yesterday, per nephrology. nephro on board to determine if she needs penitentiary dialysis 3. Acute on chronic heart failure with reduced EF cardiology on board on PO lasix 40mg bid 2D echo as under 1, with EF of 55% 4. diarrhea: resolved. C Diff negative. on loperamide 5. Hypertension: on coreg, lisinopril and amlodipine. fairly controlled. 6. Hyperlipidemia: On statin. 7. Pancytopenia: stable will monitor 8. History of asthma: Breathing treatments. 9. Rheumatoid arthritis: On abatacept. Follow-up with rheumatology on discharge. 10. Type 2 diabetes mellitus: On insulin degludec 9 6 units nightly. On insulin sliding scale. Accu-Cheks AC at bedtime. DVT prophylaxis:heparin Disposition: awaiting placement. Code Visit Inpatient E&M: 21061 Subs Hosp L2
[2019-07-26 11:21] LABS: Bedside Glucose 262 mg/dL (70-110)
[2019-07-26 14:25] LABS: Creat.Clear Total Volume 1050 mL; Creatinine Clearance 15 ml/min (100-200); Creatinine Serum Creat 3.9 mg/dL (0.6-1.0); Creatinine Urine 80.7 mg/dL (NO RANGE EST.); EST Glomerular Filtration Rate 13 mL/min (>60); Est Glom Filt Rate - Afr Amer 15 mL/min (>60)
[2019-07-26 14:26] LABS: 24 Hour Urine Protein 4614.8 mg/24HR (<150 MG/24HR); 24HR. UA Prot. Total Volume 1050 mL
--- NOTE | 2019-07-26 14:52 | NURSING ---
This nurse reviewed charting of [facility]
--- NOTE | 2019-07-26 14:56 | PCM.PN.REN ---
Patient Problems: Active and Suspected Problems (Last Reviewed 04/03/19 @ 07:40 by Domonique Evangelista) Acute respiratory failure (Acute) Subjective: still with cough, mild dyspnea with exertion. Still with leg edema. Await 24h urine CRCL. Holding dialysis today - Physical Exam Vitals/I&O's: Vital Signs Temp Pulse Resp BP Pulse Ox 98.6 F 68 20 H 155/75 H 99 07/26/19 14:25 07/26/19 14:25 07/26/19 14:25 07/26/19 14:25 07/26/19 14:25 Oxygen Flow Rate (L/min) 3 Oxygen Delivery Method Nasal Cannula Weight: 113.5 kg Body Mass Index (BMI) 45.2 Intake and Output for Last 24 Hours 07/24/19 07/25/19 07/26/19 23:59 23:59 23:59 Intake Total 1080 / 1080 760 / 760 940 / 940 Output Total 1125 / 1125 1000 / 1000 100 / 100 Balance -45 / -45 -240 / -240 840 / 840 General: Alert, Oriented x3, Cooperative, No apparent distress Lungs: Clear to auscultation Cardiovascular: Regular rate Abdomen: Bowel Sounds Present, Soft, Non Tender, Non-Distended, Obese Extremities: Edema Psych/Mental Status: Alert and oriented to time, place, person, mood and affect Microbiology Past 72 Hours 07/22/19 08:05 Blood Culture (Wb) - Anticubital Right Blood Culture - Preliminary No growth in 48 hours. 07/22/19 07:55 Urine Catheter - Gross Urine Culture - Final Culture exhibits no growth. 07/22/19 09:00 Blood Culture (Wb) - Arm Right Blood Culture - Preliminary No growth in 48 hours. 07/23/19 08:45 Stool Enteric Bacteriology - Final Laboratory Results 07/25/19 17:13: POC Glucose 176 H 07/25/19 23:54: POC Glucose 222 H 07/26/19 05:24: Sodium 140, Potassium 3.7, Chloride 106, Carbon Dioxide 26.0, BUN 67 H, Creatinine 3.90 H, Estim Creat Clear Calc 14.54, Est GFR (MDRD) Af Amer 15 L, Est GFR (MDRD) Non-Af 13 L, BUN/Creatinine Ratio 17.2, Glucose 217 H, Calcium 7.7 L, Phosphorus 4.1, Albumin 1.9 L 07/26/19 06:01: POC Glucose 210 H 07/26/19 11:06: POC Glucose 262 H 07/26/19 13:29: Creatinine 3.9 H, Est GFR (MDRD) Af Amer 15 L, Est GFR (MDRD) Non-Af 13 L, Urine Collection Time 24.0, Timed Urine Volume 1050, Urine Creatinine 80.7, Creatinine Clearance 15 L 07/26/19 13:29: Urine Collection Time 24.0, Timed Urine Volume 1050, Ur Total Protein 24 Hr 4614.8 H, Urine Total Protein Not Reportable Clinical Impression(s) from Imaging Studies Chest X-Ray 07/25/19 09:35 IMPRESSION: Cardiomegaly and mild residual CHF. Electronically Signed: Wili Kruger, at 15:40 EST , Service support , Current Medications Acetaminophen (Tylenol) 650 mg PO Q6H PRN PRN PRN Reason: TEMP>101 Last Admin: 07/22/19 13:41 Dose: 650 mg Documented by: Albuterol/Ipratropium (Duoneb) 3 ml INHALATION Q6HWA.RT [facility] Last Admin: 07/26/19 13:36 Dose: 3 ml Documented by: Amlodipine Besylate (Norvasc) 10 mg PO DAILY [facility] Last Admin: 07/26/19 10:11 Dose: 10 mg Documented by: Calamine/Phenol (Calmoseptine Ointment) 1 applic TOPICAL 4X/DAY PRN; Protocol PRN Reason: Excoriation Carvedilol (Coreg) 50 mg PO BID [facility] Last Admin: 07/26/19 10:11 Dose: 50 mg Documented by: Dextrose (D50w Syringe) 0 gm IV X1 PRN; Protocol PRN Reason: Hypoglycemia Last Admin: 07/22/19 04:24 Dose: 12.5 gm Documented by: Furosemide (Lasix) 40 mg PO BID@1000,1800 [facility] Last Admin: 07/26/19 10:11 Dose: 40 mg Documented by: Glucagon () 1 mg IM .X1 PRN PRN Reason: Hypoglycemia Heparin Sodium (Porcine) (Heparin Na) 5,000 unit SC Q8 [facility] Last Admin: 07/26/19 14:22 Dose: 5,000 unit Documented by: Hydralazine HCl (Apresoline Iv) 10 mg IV Q6H PRN PRN PRN Reason: BLOOD PRESSURE Last Admin: 07/22/19 11:09 Dose: 10 mg Documented by: Insulin Human Lispro (Humalog Kwikpen (Bkc)) 0 unit SC Q6 [facility]; Protocol Last Admin: 07/26/19 13:27 Dose: 3 unit Documented by: Lisinopril (Zestril) 40 mg PO DAILY [facility] Last Admin: 07/26/19 10:11 Dose: 40 mg Documented by: Loperamide HCl (Imodium) 2 mg PO Q4H PRN PRN PRN Reason: diarrhea Last Admin: 07/24/19 14:22 Dose: 2 mg Documented by: Nystatin (Mycostatin Powder) 1 applic TOPICAL BID [facility]; Protocol Last Admin: 07/26/19 10:12 Dose: Not Given Documented by: Potassium Chloride (K-Dur) 40 meq PO DAILYCM [facility] Last Admin: 07/26/19 10:11 Dose: 40 meq Documented by: Sodium Chloride () 10 - 40 ml IV UD PRN PRN Reason: SALINE FLUSH Last Admin: 07/25/19 06:02 Dose: 10 ml Documented by: Medical Necessity - Tobacco Use Smoking Status: Never smoker Tobacco Use: Non-smoker Assessment/Plan All Active Problems (Last Reviewed 04/03/19 @ 07:40 by Domonique Evangelista) Acute respiratory failure (Acute) Hx of arteriovenostomy for renal dialysis (Acute ~12/2018) Morbid obesity (Acute) Rheumatoid arthritis (Acute) Diabetes mellitus type 2 in obese (Acute) Broken arm (Acute) Obesity (Acute) High cholesterol (Acute) Asthma (Acute) Rheumatoid arthritis (Acute) Kidney failure (Acute) CHF (congestive heart failure) (Acute) EDNA (iron deficiency anemia) (Acute) 1. Acute on CKD stage IV vs progressed to ESRD with underlying diabetic nephropathy. Hold dialysis today. Check 24h urine crcl 2. Acute respiratory failure due to pulmonary edema, human meta. virus pneumonia improving. Continue lasix 3. Diabetes mellitus type 2 primary service management 4. Hypertention stable 5. Anemia hgb stable 6. AVF left forearm use new fistula protocol 7. change iv lasix to po 80mg twice a day
--- NOTE | 2019-07-26 14:58 | NURSING ---
reported off to primary nurse.
[2019-07-26 16:26] LABS: Bedside Glucose 296 mg/dL (70-110)
[2019-07-26] MEDS: Furosemide 80 MG Tablet PO (17:17)
[2019-07-26 17:26] LABS: Bedside Glucose 287 mg/dL (70-110)
[2019-07-26] MEDS: Pantoprazole Sodium 20 MG Tablet PO (22:46)
[2019-07-27] VITALS (11 sets, daily range): BP systolic 153–192; BP diastolic 72–84; PULSE 61–97; RESP 16–20; TEMP 36.1–37.1; O2SAT 96–100
[2019-07-27] MEDS: Insulin Lispro 100 UNIT/ML INSULN.PEN SC ×5 (06:38→21:20)
[2019-07-27] MEDS: Heparin Injection (Vial) 5,000 UNIT/ML VIAL 5000 UNIT SC ×3 (06:40→21:20)
[2019-07-27 06:45] LABS: Bedside Glucose 292 mg/dL (70-110)
[2019-07-27 06:51] LABS: Bedside Glucose 266 mg/dL (70-110)
[2019-07-27 06:56] LABS: Albumin, Serum 2.1 g/dL (3.2-5.0); BUN 68 mg/dL (7-18); Chloride 105 mmol/L (98-107); Creatinine, Serum 3.77 mg/dL (0.55-1.02); EST Glomerular Filtration Rate 13 mL/min (>60); Est Glom Filt Rate - Afr Amer 16 mL/min (>60); Estimated Creatinine Clearance 15.04 ml/min; Glucose 278 mg/dL (74-106); Phosphorus 4.3 mg/dL (2.5-4.9); Potassium 4.3 mmol/L (3.5-5.1); Sodium Level 139 mmol/L (136-145)
[2019-07-27] MEDS: Ipratropium/Albuterol Sulfate 3 ML AMPUL.NEB INHALATION ×3 (07:40→19:26)
[2019-07-27] MEDS: Pantoprazole Sodium 20 MG Tablet PO ×2 (09:02→21:21)
[2019-07-27] MEDS: Lisinopril 40 MG Tablet PO (09:02)
[2019-07-27] MEDS: Carvedilol 25 MG Tablet 50 MG PO ×2 (09:03→21:20)
[2019-07-27] MEDS: amLODIPine 10 MG Tablet PO (09:03)
[2019-07-27] MEDS: Furosemide 80 MG Tablet PO ×2 (09:03→17:07)
--- NOTE | 2019-07-27 11:00 | PN_ITS ---
Patient Problems: Active and Suspected Problems (Last Reviewed 04/03/19 @ 07:40 by Domonique Evangelista) Acute respiratory failure (Acute) Subjective: Patient seen and examined. She has no complaints and feels well. Patient wants to be discharged. She was counseled that decision is still be made has to be made by nephrology as to whether she will need long-term dialysis. Labs and vitals reviewed. Vitals/I&O's: Vital Signs Temp Pulse Resp BP Pulse Ox 97 F L 63 16 153/72 H 100 07/27/19 09:00 07/27/19 09:00 07/27/19 09:00 07/27/19 09:00 07/27/19 09:00 Oxygen Flow Rate (L/min) 2 Oxygen Delivery Method Nasal Cannula Weight: 251 lb 12.286 oz Body Mass Index (BMI) 45.2 Intake and Output for Last 24 Hours 07/25/19 07/26/19 07/27/19 23:59 23:59 23:59 Intake Total 760 / 760 1180 / 1180 Output Total 1000 / 1000 250 / 250 400 / 400 Balance -240 / -240 930 / 930 -400 / -400 General: Alert, Oriented x3, Cooperative, HEENT: Atraumatic, PERRLA, EOMI, Normocephalic Oral: Dry Mucosa Neck: Supple, No JVD, Negative Carotid Bruits Lungs: - - Decreased breath sounds bilaterally. no wheezes or crackles. on 3L of oxygen Cardiovascular: Regular rate, Regular Rhythm, Normal S1, Normal S2, No murmurs Abdomen: Bowel Sounds Present, Soft, Non Tender, Non-Distended, No Hepato-splenomegaly Extremities: No clubbing, No cyanosis, Capillary Refill Less than 3 Seconds, no edema Skin: No rashes, No breakdown Musculoskeletal: No Tenderness to Palpation of Joints or Extremities Lymphatic: No Cervical, Supraclavicular, or Inguinal Adenopathy Neurological: Cranial nerves II-XII grossly intact, Neuro grossly intact, Motor Exam 5/5 strength throughout Psych/Mental Status: Normal Affect, Appropriate, Alert and oriented to time, place, person, mood and affect Microbiology Past 72 Hours 07/22/19 08:05 Blood Culture (Wb) - Anticubital Right Blood Culture - Final No growth in 5 days. 07/22/19 07:55 Urine Catheter - Gross Urine Culture - Final Culture exhibits no growth. 07/22/19 09:00 Blood Culture (Wb) - Arm Right Blood Culture - Preliminary No growth in 48 hours. Laboratory Results 07/26/19 11:06: POC Glucose 262 H 07/26/19 13:29: Creatinine 3.9 H, Est GFR (MDRD) Af Amer 15 L, Est GFR (MDRD) Non-Af 13 L, Urine Collection Time 24.0, Timed Urine Volume 1050, Urine Creatinine 80.7, Creatinine Clearance 15 L 07/26/19 13:29: Urine Collection Time 24.0, Timed Urine Volume 1050, Ur Total Protein 24 Hr 4614.8 H, Urine Total Protein Not Reportable 07/26/19 16:03: POC Glucose 296 H 07/26/19 17:14: POC Glucose 287 H 07/26/19 22:49: POC Glucose 266 H 07/27/19 05:21: Sodium 139, Potassium 4.3, Chloride 105, Carbon Dioxide 24.0, BUN 68 H, Creatinine 3.77 H, Estim Creat Clear Calc 15.04, Est GFR (MDRD) Af Amer 16 L, Est GFR (MDRD) Non-Af 13 L, BUN/Creatinine Ratio 18.0, Glucose 278 H, Calcium 8.0 L, Phosphorus 4.3, Albumin 2.1 L 07/27/19 06:36: POC Glucose 292 H Current Medications Acetaminophen (Tylenol) 650 mg PO Q6H PRN PRN PRN Reason: TEMP>101 Last Admin: 07/22/19 13:41 Dose: 650 mg Documented by: Al Hydroxide/Mg Hydroxide (Mylanta Ii) 30 ml PO Q4H PRN PRN PRN Reason: DYSPEPSIA Albuterol/Ipratropium (Duoneb) 3 ml INHALATION Q6HWA.RT [facility] Last Admin: 07/27/19 07:40 Dose: 3 ml Documented by: Amlodipine Besylate (Norvasc) 10 mg PO DAILY [facility] Last Admin: 07/27/19 09:03 Dose: 10 mg Documented by: Calamine/Phenol (Calmoseptine Ointment) 1 applic TOPICAL 4X/DAY PRN; Protocol PRN Reason: Excoriation Carvedilol (Coreg) 50 mg PO BID [facility] Last Admin: 07/27/19 09:03 Dose: 50 mg Documented by: Dextrose (D50w Syringe) 0 gm IV X1 PRN; Protocol PRN Reason: Hypoglycemia Last Admin: 07/22/19 04:24 Dose: 12.5 gm Documented by: Furosemide (Lasix) 80 mg PO BID@1000,1800 [facility] Last Admin: 07/27/19 09:03 Dose: 80 mg Documented by: Glucagon () 1 mg IM .X1 PRN PRN Reason: Hypoglycemia Heparin Sodium (Porcine) (Heparin Na) 5,000 unit SC Q8 [facility] Last Admin: 07/27/19 06:40 Dose: 5,000 unit Documented by: Hydralazine HCl (Apresoline Iv) 10 mg IV Q6H PRN PRN PRN Reason: BLOOD PRESSURE Last Admin: 07/22/19 11:09 Dose: 10 mg Documented by: Insulin Human Lispro (Humalog Kwikpen (Bkc)) 0 unit SC ACHS [facility]; Protocol Last Admin: 07/27/19 06:38 Dose: 4 u Documented by: Lisinopril (Zestril) 40 mg PO DAILY [facility] Last Admin: 07/27/19 09:02 Dose: 40 mg Documented by: Loperamide HCl (Imodium) 2 mg PO Q4H PRN PRN PRN Reason: diarrhea Last Admin: 07/24/19 14:22 Dose: 2 mg Documented by: Nystatin (Mycostatin Powder) 1 applic TOPICAL BID [facility]; Protocol Last Admin: 07/27/19 09:03 Dose: Not Given Documented by: Pantoprazole Sodium (Protonix) 20 mg PO BID [facility] Last Admin: 07/27/19 09:02 Dose: 20 mg Documented by: [facility]assium [facility] ([facility]) [facility] Last Admin: 07/27/19 09:09 Dose: Not Given Documented by: Sodium Chloride () 10 - 40 ml IV UD PRN PRN Reason: SALINE FLUSH Last Admin: 07/25/19 06:02 Dose: 10 ml Documented by: STROKE Vital Signs/Narrative: Vital Signs Temp Pulse Resp BP Pulse Ox 07/27/19 09:00 97 F L 63 16 153/72 H 100 07/27/19 07:39 97 19 H 98 07/27/19 07:27 65 Medical Necessity - Tobacco Use Smoking Status: Never smoker Tobacco Use: Non-smoker Assessment/Plan All Active Problems (Last Reviewed 04/03/19 @ 07:40 by Domonique Evangelista) Acute respiratory failure (Acute) Hx of arteriovenostomy for renal dialysis (Acute ~12/2018) Morbid obesity (Acute) Rheumatoid arthritis (Acute) Diabetes mellitus type 2 in obese (Acute) Broken arm (Acute) Obesity (Acute) High cholesterol (Acute) Asthma (Acute) Rheumatoid arthritis (Acute) Kidney failure (Acute) CHF (congestive heart failure) (Acute) EDNA (iron deficiency anemia) (Acute) 1. Acute hypoxic respiratory failure due to fluid overload and acute exacerbation of heart failure as well as community acquired pneumonia * on 3L of oxygen * 2D echo: EF of 55%, with stage 2 diastolic dysfunction, mildly dilated RV and PA pressure of 30mmHg. LVSF is normal * now on lasix 80mg bid * cardiology and nephrology as well as pulmonology on board * in cumulative negative balance by 11.38L since admission * continue breathing treatments and steroids * 2. ESRD * nephrology checking 24 hr urine creatinine clearance * last dialysis session was Sunday * nephro on board to determine if she needs remote computer terminal operator dialysis * 3. Acute on chronic heart failure with reduced EF * cardiology on board * on PO lasix 80mg bid * 2D echo as under 1, with EF of 55% * 4. diarrhea: resolved. C Diff negative. on loperamide 5. Hypertension: on coreg, lisinopril and amlodipine. fairly controlled. 6. Hyperlipidemia: On statin. 7. Pancytopenia: * stable 8. History of asthma: Breathing treatments. 9. Rheumatoid arthritis: On abatacept. Follow-up with rheumatology on discharge. 10. Type 2 diabetes mellitus: On insulin degludec 9 6 units nightly. On insulin sliding scale. Accu-Cheks AC at bedtime. DVT prophylaxis:heparin Disposition: awaiting placement. Patient however now says she wants to go home and wants to consider outpatient PT, but is willing to consider home health care. Case management on board. Once nephrology decides if she needs remote computer terminal operator dialysis, and her dialysis times in the community is set up, she can be discharged. Code Visit Inpatient E&M: 60345 Subs Hosp L2
[2019-07-27 11:20] LABS: Bedside Glucose 378 mg/dL (70-110)
[2019-07-27 17:16] LABS: Bedside Glucose 426 mg/dL (70-110)
[2019-07-27] MEDS: 0.9% Saline Lock 10 ML Syringe IV (21:20)
[2019-07-27 22:00] LABS: Bedside Glucose 391 mg/dL (70-110)
[2019-07-28] VITALS (13 sets, daily range): BP systolic 143–173; BP diastolic 70–79; PULSE 66–76; RESP 16–20; TEMP 36–36.9; O2SAT 88–99
[2019-07-28 05:41] LABS: Absolute Lymphocyte Count 0.86 X10^3/uL (0.83-4.51); Absolute Neutrophil Count 3.1 X10^3/uL (2.0-7.7); Basophil# 0.03 X10^3/uL; Basophil% 0.6 % (0-1); Eosinophil# 0.32 X10^3/uL; Eosinophils% 6.5 % (0-5); Hematocrit 29.6 % (37-47); Lymphocyte # 0.86 X10^3/ul (4.0); Lymphocyte % 17.4 % (19-41); Mean Corp Hgb Conc 30.4 g/dL (32-36); Mean Corpuscular Hgb 26.2 pg (27.0-32.0); Mean Platelet Vol. 10.1 fl (6.2-12.0); Monocyte# 0.59 X10^3/uL; Monocyte% 11.9 % (0-10); NRBC Flagged by Analyzer 0 % (0-5); Neutrophil % 62.6 % (47-70); Platelet Count 198 K/mm3 (150-450); RBC Distribution Width CV 15.3 % (11.6-14.6); RBC Distribution Width SD 48.5 fl (35.1-43.9); Red Blood Count 3.44 M/mm3 (4.2-5.4)
[2019-07-28 06:11] LABS: Albumin, Serum 2.2 g/dL (3.2-5.0); BUN 76 mg/dL (7-18); BUN/Creat Ratio 19.9 RATIO (10-20); Calcium,Total 8.1 mg/dL (8.5-10.1); Chloride 102 mmol/L (98-107); Creatinine, Serum 3.81 mg/dL (0.55-1.02); EST Glomerular Filtration Rate 13 mL/min (>60); Est Glom Filt Rate - Afr Amer 16 mL/min (>60); Estimated Creatinine Clearance 14.88 ml/min; Glucose 324 mg/dL (74-106); Phosphorus 4.2 mg/dL (2.5-4.9); Potassium 4.7 mmol/L (3.5-5.1); Sodium Level 136 mmol/L (136-145)
[2019-07-28] MEDS: Ipratropium/Albuterol Sulfate 3 ML AMPUL.NEB INHALATION ×2 (06:52→12:36)
[2019-07-28] MEDS: Heparin Injection (Vial) 5,000 UNIT/ML VIAL 5000 UNIT SC ×2 (06:59→12:59)
[2019-07-28] MEDS: hydrALAZINE 20 MG/ML Vial 10 MG IV (07:00)
[2019-07-28] MEDS: Insulin Lispro 100 UNIT/ML INSULN.PEN SC ×3 (07:00→18:35)
[2019-07-28] MEDS: 0.9% Saline Lock 10 ML Syringe IV (07:02)
[2019-07-28 07:11] LABS: Bedside Glucose 323 mg/dL (70-110)
[2019-07-28] MEDS: Lisinopril 40 MG Tablet PO (10:19)
[2019-07-28] MEDS: Pantoprazole Sodium 20 MG Tablet PO (10:19)
[2019-07-28] MEDS: Carvedilol 25 MG Tablet 50 MG PO (10:20)
[2019-07-28] MEDS: Furosemide 80 MG Tablet PO ×2 (10:20→18:35)
[2019-07-28] MEDS: amLODIPine 10 MG Tablet PO (10:20)
--- NOTE | 2019-07-28 11:18 | CASEMGMT ---
Addendum entered by Lashay Salinas 07/28/19 13:21: Pt updated on all at this time and given schedule letter at this time, voices understanding. Pt voices no need for OP/HHC at this time and is aware to contact PCP, if she feels that she needs it once home. Pt already had O2 tank delivered by [employer] and is ready for dialysis to be completed at this time.. Pt voices no further questions/concerns/needs at this time. [place] N[place] CM Original Note: This RIOS CASH received a message from Hansa at [facility] to call her back when able. Per Dr. Jernigan, pt is now ESRD and call to Hansa at [facility] to notify of same and other questions answered for her at this time. Pt has been set up with a TTS 1210 chair time and she states she will get the schedule letter faxed alvarado. Per Dr. Jernigan, pt will have dialysis here today and then can be discharged to have start of OP dialysis on 07/30/19 at [facility] at 1210 d/t holiday week and then will go on sunday. Next week, pt will then be on normal TTS at 1210. Call to [facility] clinic and Cookie is updated on all at this time, voices understanding. Pt does qualify for home oxygen at this time and prefers [employer] so referral faxed to [facility] at this time and call to [facility] to notify of referral. Per therapy note, no further therapy is needed for pt at this time and pt prefers to go home as well. Tyson NATION CM
--- NOTE | 2019-07-28 11:20 | PN.RENAL_ITS ---
Patient Problems: Active and Suspected Problems (Last Reviewed 04/03/19 @ 07:40 by Domonique Evangelista) Acute respiratory failure (Acute) Subjective: still with cough, swelling. 24h CRCL 15cc/min at ESRD. HD today then ok to dc to home after dialysis. - Physical Exam Vitals/I&O's: Vital Signs Temp Pulse Resp BP Pulse Ox 96.8 F L 70 17 158/74 H 95 07/28/19 07:54 07/28/19 07:54 07/28/19 07:54 07/28/19 07:54 07/28/19 10:33 Oxygen Flow Rate (L/min) [ 2 AMBULATION with Oxygen] Oxygen Flow Rate (L/min) [ 0 AMBULATING on Room Air] Oxygen Flow Rate (L/min) [At 0 REST on Room Air] Oxygen Flow Rate (L/min) 2 Oxygen Delivery Method Nasal Cannula Weight: 115 kg Body Mass Index (BMI) 45.2 Intake and Output for Last 24 Hours 07/26/19 07/27/19 07/28/19 23:59 23:59 23:59 Intake Total 1180 / 1180 720 / 720 Output Total 250 / 250 900 / 900 100 / 100 Balance 930 / 930 -180 / -180 -100 / -100 General: Alert, Oriented x3, Cooperative Lungs: Rales Cardiovascular: Regular rate Abdomen: Bowel Sounds Present, Soft, Non Tender, Non-Distended, Obese Extremities: Edema, - - AVF left FA Psych/Mental Status: Normal Affect, Appropriate, Alert and oriented to time, place, person, mood and affect Microbiology Past 72 Hours 07/22/19 09:00 Blood Culture (Wb) - Arm Right Blood Culture - Final No growth in 5 days. 07/22/19 08:05 Blood Culture (Wb) - Anticubital Right Blood Culture - Final No growth in 5 days. Laboratory Results 07/27/19 11:09: POC Glucose 378 H 07/27/19 17:05: POC Glucose 426 H 07/27/19 21:18: POC Glucose 391 H 07/28/19 05:10: Sodium 136, Potassium 4.7, Chloride 102, Carbon Dioxide 24.0, BUN 76 H, Creatinine 3.81 H, Estim Creat Clear Calc 14.88, Est GFR (MDRD) Af Amer 16 L, Est GFR (MDRD) Non-Af 13 L, BUN/Creatinine Ratio 19.9, Glucose 324 H, Calcium 8.1 L, Phosphorus 4.2, Albumin 2.2 L 07/28/19 05:10: WBC 5.0, RBC 3.44 L, Hgb 9.0 L, Hct 29.6 L, MCV 86.0, MCH 26.2 L , MCHC 30.4 L, RDW Std Deviation 48.5 H, RDW Coeff of Andres 15.3 H, Plt Count 198, MPV 10.1, Immature Gran % (Auto) 1.000 H, Neut % (Auto) 62.6, Lymph % (Auto) 17.4 L, [place] % (Auto) 11.9 H, Eos % (Auto) 6.5 H, Baso % (Auto) 0.6, Absolute Neuts (auto) 3.1, Absolute Lymphs (auto) 0.86, Nucleated RBC % 0 07/28/19 06:54: POC Glucose 323 H Current Medications Acetaminophen (Tylenol) 650 mg PO Q6H PRN PRN PRN Reason: TEMP>101 Last Admin: 07/22/19 13:41 Dose: 650 mg Documented by: Al Hydroxide/Mg Hydroxide (Mylanta Ii) 30 ml PO Q4H PRN PRN PRN Reason: DYSPEPSIA Albuterol/Ipratropium (Duoneb) 3 ml INHALATION Q6HWA.RT [facility] Last Admin: 07/28/19 06:52 Dose: 3 ml Documented by: Amlodipine Besylate (Norvasc) 10 mg PO DAILY [facility] Last Admin: 07/28/19 10:20 Dose: 10 mg Documented by: Calamine/Phenol (Calmoseptine Ointment) 1 applic TOPICAL 4X/DAY PRN; Protocol PRN Reason: Excoriation Carvedilol (Coreg) 50 mg PO BID [facility] Last Admin: 07/28/19 10:20 Dose: 50 mg Documented by: Dextrose (D50w Syringe) 0 gm IV X1 PRN; Protocol PRN Reason: Hypoglycemia Last Admin: 07/22/19 04:24 Dose: 12.5 gm Documented by: Furosemide (Lasix) 80 mg PO BID@1000,1800 [facility] Last Admin: 07/28/19 10:20 Dose: 80 mg Documented by: Glucagon () 1 mg IM .X1 PRN PRN Reason: Hypoglycemia Heparin Sodium (Porcine) (Heparin Na) 5,000 unit SC Q8 [facility] Last Admin: 07/28/19 06:59 Dose: 5,000 unit Documented by: Hydralazine HCl (Apresoline Iv) 10 mg IV Q4H PRN PRN PRN Reason: SBP > 160 or DBP > 110 Last Admin: 07/28/19 07:00 Dose: 10 mg Documented by: Insulin Human Lispro (Humalog Kwikpen (Bkc)) 0 unit SC [facility]; Protocol Last Admin: 07/28/19 07:00 Dose: 9 u Documented by: Lisinopril (Zestril) 40 mg PO DAILY [facility] Last Admin: 07/28/19 10:19 Dose: 40 mg Documented by: Loperamide HCl (Imodium) 2 mg PO Q4H PRN PRN PRN Reason: diarrhea Last Admin: 07/24/19 14:22 Dose: 2 mg Documented by: Nystatin (Mycostatin Powder) 1 applic TOPICAL BID [facility]; Protocol Last Admin: 07/28/19 10:22 Dose: Not Given Documented by: Pantoprazole Sodium (Protonix) 20 mg PO BID [facility] Last Admin: 07/28/19 10:19 Dose: 20 mg Documented by: Potassium Chloride (K-Dur) 40 meq PO DAILYCM [facility] Last Admin: 07/28/19 07:55 Dose: Not Given Documented by: Sodium Chloride () 10 - 40 ml IV UD PRN PRN Reason: SALINE FLUSH Last Admin: 07/28/19 07:02 Dose: 10 ml Documented by: Medical Necessity - Tobacco Use Smoking Status: Never smoker Tobacco Use: Non-smoker Assessment/Plan All Active Problems (Last Reviewed 04/03/19 @ 07:40 by Domonique Evangelista) Acute respiratory failure (Acute) Hx of arteriovenostomy for renal dialysis (Acute ~12/2018) Morbid obesity (Acute) Rheumatoid arthritis (Acute) Diabetes mellitus type 2 in obese (Acute) Broken arm (Acute) Obesity (Acute) High cholesterol (Acute) Asthma (Acute) Rheumatoid arthritis (Acute) Kidney failure (Acute) CHF (congestive heart failure) (Acute) EDNA (iron deficiency anemia) (Acute) 1. ESRD with underlying diabetic nephropathy. dialysis today then DC to home after. 24h urine crcl 15cc/min. 2. Acute respiratory failure due to pulmonary edema, human meta.Continue lasix 3. Diabetes mellitus type 2 primary service management 4. Hypertention stable 5. Anemia hgb stable 6. AVF left forearm use new fistula protocol
[2019-07-28 11:35] LABS: Bedside Glucose 345 mg/dL (70-110)
--- NOTE | 2019-07-28 12:48 | PCM.DC ---
- Discharge Diagnoses Current Active Problems: Current Active and Chronic Problems (Last Reviewed 04/03/19 @ 07:40 by Domonique Evangelista) Acute respiratory failure (Acute) You will use the following diet at home:: Renal (restricted protein/sodium) Your food should be the consistency of: Regular Your liquids should be the consistency of: Regular/Thin Discharge Activity: Return to Normal Activity Call your doctor if you observe: Fever of 101 or Higher, Shortness of breath, Dizziness, Fainting spells, Swelling in the ankles, Chest pain, Increased palpitations (irregular heartbeat) Allergies/Adverse Reactions: Allergies No Known Allergies Allergy (Verified 04/03/19 07:40) Medications to take at Discharge amlodipine 5 mg tablet 10 mg PO DAILY 12/03/18 atorvastatin 40 mg tablet 40 mg PO DAILY 12/03/18 carvedilol 25 mg tablet 50 mg PO BID 12/03/18 ergocalciferol (vitamin D2) 50,000 unit capsule 50,000 unit PO QWEEK 12/03/18 ferrous sulfate 325 mg (65 mg iron) tablet 325 mg PO TID tab 12/03/18 insulin degludec (U-100) 100 unit/mL subcutaneous solution 96 unit SC [facility] 12/03/18 omeprazole 20 mg capsule,delayed release 20 mg PO DAILY 12/03/18 Beclomethasone Dipropionate [Qvar Redihaler] 2 puff INHALATION BID 07/22/19 Calcitriol 0.5 mcg PO DAILY 07/22/19 Fluticasone Propionate 2 spry NASAL DAILY 07/22/19 Sevelamer Carbonate 800 mg PO TIDCM 07/22/19 Sodium Bicarbonate 650 mg PO BID 07/22/19 Vit B Comp No.3/Folic/C/Biotin [Nephro-Shubham Rx Tablet] 1 ea PO DAILY 07/22/19 Furosemide [Lasix] 80 mg PO BID@1000,1800 #60 tab 07/28/19 Lisinopril 40 mg PO DAILY #0 07/28/19 The following prescriptions were given: Furosemide [Lasix] 80 mg PO BID@1000,1800 #60 tab Transmission Status: Pending to [facility] Primary Care Physician: Ember Santos MD [Primary Care Provider] - Please follow up with your Primary Care Physician in: 3-5 days Test Results: Test results from this visit will be discussed in further detail at your follow-up appointment, if applicable. Please Follow Up With: Chayito Jernigan DO When: 2-4 weeks
--- NOTE | 2019-07-28 13:26 | DS.PCM_ITS ---
Discharge Date and Diagnosis - Problem List Patient Problems: Active and Suspected Problems (Last Reviewed 04/03/19 @ 07:40 by Domonique Evangelista) Acute respiratory failure (Acute) Date of Admission: 07/21/19 Date of Discharge: 07/28/19 - Primary Discharge Diagnosis Active and Suspected Problems (Last Reviewed 04/03/19 @ 07:40 by Domonique Evangelista) Acute respiratory failure (Acute) - Secondary Discharge Diagnosis Chronic Problems (Last Reviewed 04/03/19 @ 07:40 by Domonique Evangelista) Chronic renal failure, stage 4 (severe) (Chronic) HTN (hypertension) (Chronic) Hospital Course and Treatment Imaging Results: CXR: IMPRESSION: Bilateral perihilar infiltrates suggestive of pulmonary edema. Cardiomegaly. Echo: Interpretation Summary Normal LV size. Left ventricular systolic function is normal. The estimated ejection fraction is 55 %. Stage 2 diastolic dysfunction. Mild (1+) tricuspid valve insufficiency. Consults: Cardiology Nephrology Pulmonology/ICU Operations: None Procedures: 2-D Echocardiogram Summary of Care Provided: Per HPI: The patient is a 58 year old F who presented to [facility] with c/o SOB and oxygen saturations in the mid 70's on RA. She states that she has had increased SOB over the last month but has become acutely worse in the last few days. She c/o chills but no documented fever has been noted. She has a mildly productive cough. She is on chronic immunosuppression (abatacept) for RA and her last dose was about 2 weeks ago. She states that she has chronic edema that is usually worse in the am but has worsened and she has noted that she has gained weight (about 14 kg). She has a fistula in her R UE that is ready for use but she has never required HD in the past. Her next appt with Dr. Jernigan (her extension edger) is at the end of this month (07/30) to discussing starting HD per the pt. She was given 40 mg of lasix in the ED and transferred here for further care. She notes that she is feeling somewhat better now that she is on BIPAP. Sats were in the 80's on a venti mask upon arrival to our ICU. Hospital Course: 1. Hypoxic respiratory failure secondary to fluid overload and acute exacerbation of diastolic CHF and community-acquired [id number] female who is been followed as an outpatient by nephrology for worsening renal function secondary to diabetes presented with shortness of breath and a 14 kg weight gain over a number of weeks. She was initially admitted to the ICU for management and was started on IV Lasix for diuresis and nephrology was consulted who recommended initiating dialysis for fluid removal. She did have a 24-hour creatinine clearance test done which showed that her creatinine clearance had worsened and therefore she would need to undergo dialysis on a regular basis as an outpatient. Also she had an echo done showed an EF of 55% as well as stage II diastolic dysfunction. Cardiology was consulted and felt that she would benefit as an outpatient from stress test. She is feeling much better today from a respiratory standpoint, and she is wanting to go home today. She did complete her antibiotics for community-acquired pneumonia and she is about 11 L negative and 27 pounds second baller than she was when she presented to the ER. To follow-up with her primary care doctor as well as nephrology as an outpatient. She will be discharged on 2 L nasal cannula. I discussed with her the risk benefits of discharge and she did express understanding. 2. Acute on chronic diastolic heart failure/HTN/HLD-her symptoms improved and her respiratory status improved significantly by day of discharge, she only need 2 L nasal cannula to go home with. Medication changes were made, her Bumex was discontinued and she was given a prescription for Lasix 80 mg p.o. twice daily, her lisinopril was increased to 40 mg. She will need to follow-up with cardiology as an outpatient. 3. Her other medical diagnoses were evaluated and her home medications were continued where appropriate Patient Problems: Active and Suspected Problems (Last Reviewed 04/03/19 @ 07:40 by Domonique Evangelista) Acute respiratory failure (Acute) - Physical Exam Vitals/I&O's: Vital Signs Temp Pulse Resp BP Pulse Ox 97.0 F L 67 17 155/74 H 97 07/28/19 13:01 07/28/19 13:01 07/28/19 13:01 07/28/19 13:01 07/28/19 13:01 Oxygen Flow Rate (L/min) [ 2 AMBULATION with Oxygen] Oxygen Flow Rate (L/min) [ 0 AMBULATING on Room Air] Oxygen Flow Rate (L/min) [At 0 REST on Room Air] Oxygen Flow Rate (L/min) 2 Oxygen Delivery Method Nasal Cannula Weight: 253 lb 8.505 oz Body Mass Index (BMI) 45.2 Intake and Output for Last 24 Hours 07/26/19 07/27/19 07/28/19 23:59 23:59 23:59 Intake Total 1180 / 1180 720 / 720 550 / 550 Output Total 250 / 250 900 / 900 100 / 100 Balance 930 / 930 -180 / -180 450 / 450 General: Alert, Oriented x3, Cooperative, No apparent distress HEENT: Atraumatic, PERRLA, EOMI, Normocephalic Oral: Moist Mucosa Neck: Supple, No JVD Lungs: Clear to auscultation, Normal air movement, No rhonchi, No wheeze, No rales, Diminished Cardiovascular: Regular rate, Regular Rhythm, Normal S1, Normal S2, No murmurs Abdomen: Soft, Non Tender, Non-Distended, No Hepato-splenomegaly Extremities: Capillary Refill Less than 3 Seconds, Edema - 3+ pitting edema Skin: No rashes, No breakdown Neurological: Neuro grossly intact, Sensory exam intact to light touch and pain Psych/Mental Status: Normal Affect, Appropriate Microbiology Past 72 Hours 07/22/19 09:00 Blood Culture (Wb) - Arm Right Blood Culture - Final No growth in 5 days. 07/22/19 08:05 Blood Culture (Wb) - Anticubital Right Blood Culture - Final No growth in 5 days. Laboratory Results 07/27/19 17:05: POC Glucose 426 H 07/27/19 21:18: POC Glucose 391 H 07/28/19 05:10: Sodium 136, Potassium 4.7, Chloride 102, Carbon Dioxide 24.0, BUN 76 H, Creatinine 3.81 H, Estim Creat Clear Calc 14.88, Est GFR (MDRD) Af Amer 16 L, Est GFR (MDRD) Non-Af 13 L, BUN/Creatinine Ratio 19.9, Glucose 324 H, Calcium 8.1 L, Phosphorus 4.2, Albumin 2.2 L 07/28/19 05:10: WBC 5.0, RBC 3.44 L, Hgb 9.0 L, Hct 29.6 L, MCV 86.0, MCH 26.2 L , MCHC 30.4 L, RDW Std Deviation 48.5 H, RDW Coeff of Andres 15.3 H, Plt Count 198, MPV 10.1, Immature Gran % (Auto) 1.000 H, Neut % (Auto) 62.6, Lymph % (Auto) 17.4 L, Stearns % (Auto) 11.9 H, Eos % (Auto) 6.5 H, Baso % (Auto) 0.6, Absolute Neuts (auto) 3.1, Absolute Lymphs (auto) 0.86, Nucleated RBC % 0 07/28/19 06:54: POC Glucose 323 H 07/28/19 11:28: POC Glucose 345 H Current Medications Acetaminophen (Tylenol) 650 mg PO Q6H PRN PRN PRN Reason: TEMP>101 Last Admin: 07/22/19 13:41 Dose: 650 mg Documented by: Al Hydroxide/Mg Hydroxide (Mylanta Ii) 30 ml PO Q4H PRN PRN PRN Reason: DYSPEPSIA Albuterol/Ipratropium (Duoneb) 3 ml INHALATION Q6HWA.RT [facility] Last Admin: 07/28/19 12:36 Dose: 3 ml Documented by: Amlodipine Besylate (Norvasc) 10 mg PO DAILY [facility] Last Admin: 07/28/19 10:20 Dose: 10 mg Documented by: Calamine/Phenol (Calmoseptine Ointment) 1 applic TOPICAL 4X/DAY PRN; Protocol PRN Reason: Excoriation Carvedilol (Coreg) 50 mg PO BID [facility] Last Admin: 07/28/19 10:20 Dose: 50 mg Documented by: Dextrose (D50w Syringe) 0 gm IV X1 PRN; Protocol PRN Reason: Hypoglycemia Last Admin: 07/22/19 04:24 Dose: 12.5 gm Documented by: Furosemide (Lasix) 80 mg PO BID@1000,1800 [facility] Last Admin: 07/28/19 10:20 Dose: 80 mg Documented by: Glucagon () 1 mg IM .X1 PRN PRN Reason: Hypoglycemia Heparin Sodium (Porcine) (Heparin Na) 5,000 unit SC Q8 [facility] Last Admin: 07/28/19 12:59 Dose: 5,000 unit Documented by: Hydralazine HCl (Apresoline Iv) 10 mg IV Q4H PRN PRN PRN Reason: SBP > 160 or DBP > 110 Last Admin: 07/28/19 07:00 Dose: 10 mg Documented by: Insulin Human Lispro (Humalog Kwikpen (Bkc)) 0 unit SC ACHS [facility]; Protocol Last Admin: 07/28/19 11:31 Dose: 12 u Documented by: Lisinopril (Zestril) 40 mg PO DAILY [facility] Last Admin: 07/28/19 10:19 Dose: 40 mg Documented by: Loperamide HCl (Imodium) 2 mg PO Q4H PRN PRN PRN Reason: diarrhea Last Admin: 07/24/19 14:22 Dose: 2 mg Documented by: Nystatin (Mycostatin Powder) 1 applic TOPICAL BID [facility]; Protocol Last Admin: 07/28/19 10:22 Dose: Not Given Documented by: Pantoprazole Sodium (Protonix) 20 mg PO BID [facility] Last Admin: 07/28/19 10:19 Dose: 20 mg Documented by: Potassium [facility] ([facility]Dur) [facility] Last Admin: 07/28/19 07:55 Dose: Not Given Documented by: Sodium Chloride () 10 - 40 ml IV UD PRN PRN Reason: SALINE FLUSH Last Admin: 07/28/19 07:02 Dose: 10 ml Documented by: Discharge Activity: Return to Normal Activity Call your doctor if you observe: Fever of 101 or Higher, Shortness of breath, Dizziness, Fainting spells, Swelling in the ankles, Chest pain, Increased palpitations (irregular heartbeat) Home Medications: Medications to take at Discharge amlodipine 5 mg tablet 10 mg PO DAILY 12/03/18 atorvastatin 40 mg tablet 40 mg PO DAILY 12/03/18 carvedilol 25 mg tablet 50 mg PO BID 12/03/18 ergocalciferol (vitamin D2) 50,000 unit capsule 50,000 unit PO QWEEK 12/03/18 ferrous sulfate 325 mg (65 mg iron) tablet 325 mg PO TID tab 12/03/18 insulin degludec (U-100) 100 unit/mL subcutaneous solution 96 unit SC QHS 12/03/18 omeprazole 20 mg capsule,delayed release 20 mg PO DAILY 12/03/18 Beclomethasone Dipropionate [Qvar Redihaler] 2 puff INHALATION BID 07/22/19 Calcitriol 0.5 mcg PO DAILY 07/22/19 Fluticasone Propionate 2 spry NASAL DAILY 07/22/19 Sevelamer Carbonate 800 mg PO TIDCM 07/22/19 Sodium Bicarbonate 650 mg PO BID 07/22/19 Vit B Comp No.3/Folic/C/Biotin [Nephro-Shubham Rx Tablet] 1 ea PO DAILY 07/22/19 Furosemide [Lasix] 80 mg PO BID@1000,1800 #60 tab 07/28/19 Lisinopril 40 mg PO DAILY #0 07/28/19 Following Prescrptions Were Given to Patient: Furosemide [Lasix] 80 mg PO BID@1000,1800 #60 tab Transmission Status: Received by [facility] Primary Care Physician: Ember Santos MD [Primary Care Provider] - Please follow up with your Primary Care Physician in: 3-5 days Please Follow Up With: Chayito Jernigan DO When: 2-4 weeks Please Follow Up With: Blaire Zamudio NP-C Disposition: Home Minutes spent on discharge:: 35 Patient Condition:: Stable Medical Necessity - Tobacco Use Smoking Status: Never smoker Tobacco Use: Non-smoker Meaningful Use Info Meaningful Use Diagnoses (Choose all that apply): CHF - CHF VAMSI/ARB ordered at discharge?: Yes Documented LVEF (%): 55 Code Visit Inpatient E&M: 63806 Disch Hosp
--- NOTE | 2019-07-28 15:03 | PHA.DC.MC ---
Pharmacy Service has performed discharge medication reconciliation and counseling for this patient. 1. FUROSEMIDE 80MG PO BID The patient's discharge medication list was reviewed for discrepancies and discrepancies were resolved. Home Medications amlodipine 5 mg tablet 10 mg PO DAILY 12/03/18 atorvastatin 40 mg tablet 40 mg PO DAILY 12/03/18 carvedilol 25 mg tablet 50 mg PO BID 12/03/18 ergocalciferol (vitamin D2) 50,000 unit capsule 50,000 unit PO QWEEK 12/03/18 ferrous sulfate 325 mg (65 mg iron) tablet 325 mg PO TID tab 12/03/18 insulin degludec (U-100) 100 unit/mL subcutaneous solution 96 unit SC QHS 12/03/18 omeprazole 20 mg capsule,delayed release 20 mg PO DAILY 12/03/18 Beclomethasone Dipropionate [Qvar Redihaler] 2 puff INHALATION BID 07/22/19 Calcitriol 0.5 mcg PO DAILY 07/22/19 Fluticasone Propionate 2 spry NASAL DAILY 07/22/19 Sevelamer Carbonate 800 mg PO TIDCM 07/22/19 Sodium Bicarbonate 650 mg PO BID 07/22/19 Vit B Comp No.3/Folic/C/Biotin [Nephro-Shubham Rx Tablet] 1 ea PO DAILY 07/22/19 Furosemide [Lasix] 80 mg PO BID@1000,1800 #60 tab 07/28/19 Lisinopril 40 mg PO DAILY #0 07/28/19 The patient was counseled on the following discharge medications and changes in medications for homegoing were reviewed. The Reason for Use, instructions for use, and potential side effects were reviewed for all new medications. The patient's questions regarding all of their medications were answered. The patient was able to verbally demonstrate an understanding of their discharge medications.
[2019-07-28 16:41] LABS: Bedside Glucose 252 mg/dL (70-110)
--- NOTE | 2019-07-28 18:43 | DIALYSIS ---
Pt tolerated 3.5hr HD tx well. Net UF -2500ml. See flow record for tx data.
[2019-07-28 18:46] LABS: Bedside Glucose 220 mg/dL (70-110)
--- NOTE | 2019-07-29 15:04 | CASEMGMT ---
RN CM Discharge Follow-Up Phone Call. Nora: Conrado Strata: 3 Discharge Date: 07/28/19 Adm Dx: Acute Resp Failure Call to pt to inquire about how she has been doing since being discharged from the hospital. She states she is having difficulty with figuring out what medications she is supposed to take and needs assistance. She states she called Dr Santos's office and left a message with them and is awaiting a return call. Call placed to Felicity Hanks, Ladle Patcher for Dr Santos. Message left for her to return call to this RN CM. Discussed options of HHC with pt and CCN. Pt states she does not think she will be home-bound for HHC but is agreeable to CCN referral. Call placed to Rajeev @ [facility] and referral made. Pt stated she was able to get the new prescriptions of Lisinopril and Lasix. Reviewed all of pt's discharge medications/instructions with her and RN CM instructed pt on what medications to take at this time. For the medications that are ordered BID, pt was made aware not to take these medications again tonight. Pt did state she took the Lasix earlier today. RN CM instructed her to take the 2nd dose of Lasix this evening as ordered. Pt stated she has never used a taxi service before and was not sure who to call tomorrow for transportation to Dialysis. She was provided w/ name/phone number of [facility] service. She was also instructed to take [facility] discharge instructions and medications to her appt @ [facility] tomorrow and was made aware they stated they can assist her further with medications. She voiced understanding and appreciation. Pt states she is aware of the follow-up appts and denies having further questions/concerns at this time. Phone number to this RN CM provided to pt and instructed her to call back with any further questions/concerns/needs. Farida OLIVARES RNC CM
== END 2019-07-28 19:22 | disposition home or self-care (01) | DRG 291 ==
LOC: ICU 07-23 10:47 → PCU 07-25 09:33 → ICU 07-25 09:34 → PCU 07-25 09:34
PROVIDERS: Internal Medicine Critical Care Medicine; Internal Medicine Nephrology; Student in an Organized Health Care Education/Training Program; Admitting Provider Internal Medicine; Family Provider Internal Medicine; PCP Internal Medicine; Referring Provider Internal Medicine; Visit Provider Family Medicine
DX: I13.2 Hypertensive heart and chronic kidney disease with heart failure and with stage 5 chronic kidney disease, or end stage renal disease (principal); J96.01 Acute respiratory failure with hypoxia; I50.43 Acute on chronic combined systolic (congestive) and diastolic (congestive) heart failure; J12.3 Human metapneumovirus pneumonia; N18.6 End stage renal disease; I50.33 Acute on chronic diastolic (congestive) heart failure; D61.818 Other pancytopenia; Z68.42 Body mass index [BMI] 45.0-49.9, adult; E83.39 Other disorders of phosphorus metabolism; E11.22 Type 2 diabetes mellitus with diabetic chronic kidney disease; D50.9 Iron deficiency anemia, unspecified; J45.909 Unspecified asthma, uncomplicated; M06.9 Rheumatoid arthritis, unspecified; E78.5 Hyperlipidemia, unspecified; E66.01 Morbid (severe) obesity due to excess calories; R19.7 Diarrhea, unspecified; E87.6 Hypokalemia; Z79.4 Long term (current) use of insulin; Z79.899 Other long term (current) drug therapy
CPT/HCPCS: 36415; 36600; 71045; 71046; 80048; 80053; 80069; 80202; 81050; 82248; 82575; 82803; 82962; 83630; 83735; 83880; 84100; 84156; 84443; 84484; 85025; 86704; 86706; 87040; 87086; 87340; 87449; 87493; 87506; 87633; 87641; 87804; 90937; 93306; 94002; 94003; 94640; 94667; 94668; 97110; 97116; 97162; 97166; 97530; 97803; 99251; J7040; Q9957; A4216; G0257; G0463; J0696; J1940

== ENCOUNTER 2019-10-27 13:14 | Outpatient (RCR) | payer OTHER, SELFPAY ==
[2019-10-06 13:07] VITALS: BMI 37.9
== END 2019-11-01 23:59 ==
LOC: DC 13:14
PROVIDERS: PCP Internal Medicine; Visit Provider Internal Medicine
DX: Z71.3 Dietary counseling and surveillance (principal); E11.22 Type 2 diabetes mellitus with diabetic chronic kidney disease; N18.4 Chronic kidney disease, stage 4 (severe)
CPT/HCPCS: 97802

== ENCOUNTER 2019-10-29 07:44 | Day surgery (SDC) | payer OTHER, MEDICARE, SELFPAY ==
--- NOTE | 2019-10-06 03:46 | HP_ITS ---
Intake Vital Signs 10/06/19 Height 5 ft 6 in 10/06/19 Weight: 235 lb 10/06/19 BMI 37.9 10/06/19 BP 156/85 H 10/06/19 Blood Pressure Location Rt brachial 10/06/19 Position Sitting 10/06/19 Respiration 16 10/06/19 Pulse 67 10/06/19 Pulse Source Monitor 10/06/19 Temp 97.5 F L 10/06/19 Temp Source Oral 10/06/19 Pulse Oximetry (%) 98 10/06/19 Oxygen Delivery Method room air 10/06/19 BMI 37.9 Intake Visit Reasons: Access Flow Issues Chief Complaint: fistula creation 12-26 Museum Guide Required: No Is patient in pain?: No Allergies No Known Allergies Allergy (Verified 10/06/19 13:08) Medications atorvastatin 40 mg tablet 40 mg PO DAILY 12/03/18 [History Confirmed 10/06/19] ergocalciferol (vitamin D2) 1,250 mcg (50,000 unit) capsule 50,000 unit PO QWEEK 12/03/18 [History Confirmed 10/06/19] insulin degludec 100 unit/mL subcutaneous solution 96 unit SC QHS 12/03/18 [History Confirmed 10/06/19] omeprazole 20 mg capsule,delayed release 20 mg PO DAILY 12/03/18 [History Confirmed 10/06/19] Beclomethasone Dipropionate [Qvar Redihaler] 2 puff INHALATION BID 07/22/19 [History Confirmed 10/06/19] Fluticasone Propionate 2 spry NASAL DAILY 07/22/19 [History Confirmed 10/06/19] abatacept 125 mg/mL subcutaneous auto-injector 125 mg SC QWEEK 10/06/19 [History Confirmed 10/06/19] calcitriol 0.25 mcg capsule 0.25 mcg PO DAILY cap 10/06/19 [History Confirmed 10/06/19] carvedilol 25 mg tablet 12.5 mg PO BID tab 10/06/19 [History Confirmed 10/06/19] docusate sodium 100 mg capsule 100 mg PO QHS cap 10/06/19 [History Confirmed 10/06/19] lisinopril 10 mg tablet 10 mg PO DAILY tab 10/06/19 [History Confirmed 10/06/19] [facility] Medical History Chronic diastolic (congestive) heart failure (Chronic) Hyperlipidemia (Chronic) Essential (primary) hypertension (Chronic) Chronic renal failure, stage 4 (severe) (Chronic) Asthma (Chronic) Diabetes mellitus type 2 in obese (Chronic) GERD (gastroesophageal reflux disease) (Chronic) EDNA (iron deficiency anemia) (Chronic) Morbid obesity (Chronic) Obstructive sleep apnea (Chronic) Rheumatoid arthritis (Chronic) Acute respiratory failure (Resolved) Surgical History Broken arm (Resolved) Hx of arteriovenostomy for renal dialysis (Resolved 12/2018) Family History Father Hypertension CAD (coronary artery disease) Brother Diabetes Social History (Updated 10/06/19 @ 15:46 by Ting Trinidad PA-C) Smoking Status: Never smoker alcohol intake: current HPI HPI HPI: MADAN SERRATO, is a 59 F who presents to the office today for HPI HPI Surgical H&P: Yes HPI: MADAN SERRATO, is a 59 F who presents to the office today for decreased flow and low clearance of the left forearm fistula. Patient had her fistula created in December of 2018. She has not had any intervention previously on the fistula. We have not evaluated the patient since last April. She notes she has been using the fistula for 2 months now. She notes she dialyzes on green when she is able to see the machine. She denies pain or discomfort at the fistula site. She dialyzes on T, Th and Sat. ROS General General: Yes weight change and fatigue; no appetite, colon cancer, breast cancer or weakness HEENT HEENT: Yes eye injury and eye surgery; no difficulty swallowing, swollen glands or hoarseness Endo Endocrine: Yes diabetes mellitus; no thyroid disease, thyroid cancer, Hair loss, heat intolerance or cold intolerance Skin Skin: No rash or changing moles Breast Breast: No left breast lump, right breast lump, nipple discharge, breast pain, abnormal mammogram, abnormal US or breast enlargement Cardio Cardiovascular: Yes heart disease and high blood pressure; no murmur, pacemaker, atrial fibrillation, heart attack, heart stent, palpitations, shortness of breat with exertion or chest pain Psych Psychiatric: Yes anxiety; no depression or hearing voices Resp Respiratory: Yes shortness of breath, No sleep apnea, No cough, No COPD, No asthma, No emphysema, No wheezing Gastro Gastrointestinal: No abdominal pain, Yes nausea or vomiting, No diarrhea, No constipation, No blood in stool, No acid reflux, No hemorrhoids, No ulcers, No gallbladder problem, No black,tarry stools Jamaal Hematologic: No blood thinners, No blood disorders, No bleeding, Yes anemia, No blood clots Neuro Neurologic: No weakness Exam Const General: cooperative, healthy appearing, comfortable, no acute distress HENMT Head: normal to inspection Eyes General: appearance normal, both eyes and all related structures Neck Neck: normal visual inspection Chest Breast Palpation: No nipple discharge Resp Effort & Inspection: normal respiratory effort Auscultation: clear to auscultation bilaterally Cardio Rate: regular rate Rhythm: regular rhythm Heart Sounds: no murmurs GI Inspection: normal to inspection Auscultation: normal bowel sounds Skin General: no rashes or lesions noted Neuro General: no focal motor deficits, CN's II-XI intact bilaterally Extrem Other: Left forearm transposed AV fistula- good pulse, diminished bruit and thrill Psych Appearance: grossly normal Affect: normal affect Assessment & Plan Problems 1. Problem with dialysis access, initial encounter T82.950U Plan Dr. Lemons will cervantes to perform a non-urgent left forearm AV fistulogram. Procedure details, risks and benefits have been explained to the patient. She is not on any blood thinners. Patient has had the opportunity to ask and have questions answered. Patient verbally understands and agrees with the plan. Patient will need a CBC and BMP 1 week prior to the procedure. Coding Level of Care Code Off vis,est,level 3 Diagnoses Problem with dialysis access, initial encounter T82.710I ??Encounter type: initial encounter 10/06/19 1546 <Electronically signed by Ting siddiqui PA-C> Date _ Ting Trinidad PA-C
[2019-10-06 13:07] VITALS: BMI 37.9
[2019-10-28 08:25] VITALS: BMI 37.9
[2019-10-29 08:13] LABS: Hematocrit 32.6 % (37-47); Hemoglobin 10.7 g/dL (12.0-15.0); Mean Corp Hgb Conc 32.8 g/dL (32-36); Mean Corpuscular Hgb 30.3 pg (27.0-32.0); Mean Corpuscular Volume 92.4 fL (81-99); Mean Platelet Vol. 10.3 fl (6.2-12.0); Platelet Count 172 K/mm3 (150-450); RBC Distribution Width CV 14.9 % (11.6-14.6); Red Blood Count 3.53 M/mm3 (4.2-5.4); White Blood Count 8.6 K/mm3 (4.4-11.0)
[2019-10-29 08:25] LABS: Anion Gap 6 (5-15); BUN 48 mg/dL (7-18); BUN/Creat Ratio 12.5 RATIO (10-20); Calcium,Total 9.1 mg/dL (8.5-10.1); Chloride 101 mmol/L (98-107); Creatinine, Serum 3.85 mg/dL (0.55-1.02); EST Glomerular Filtration Rate 13 mL/min (>60); Est Glom Filt Rate - Afr Amer 15 mL/min (>60); Estimated Creatinine Clearance 14.55 ml/min; Glucose 192 mg/dL (74-106); Potassium 4.1 mmol/L (3.5-5.1); Sodium Level 138 mmol/L (136-145)
--- NOTE | 2019-10-29 10:03 | PCM.HP.BLA ---
Problem List (1) Problem with dialysis access Status: Acute Qualifiers: Encounter type: initial encounter Qualified Code(s): T82.898A - Other specified complication of vascular prosthetic devices, implants and grafts, initial encounter History and Physical Date of Admission: 10/29/19 Intake Visit Reasons: Access Flow Issues Chief Complaint: fistula creation 12-26 Vamp Maker Required: No Is patient in pain?: No Allergies No Known Allergies Allergy (Verified 10/06/19 13:08) Medications atorvastatin 40 mg tablet 40 mg PO DAILY 12/03/18 [History Confirmed 10/06/19] ergocalciferol (vitamin D2) 1,250 mcg (50,000 unit) capsule 50,000 unit PO QWEEK 12/03/18 [History Confirmed 10/06/19] insulin degludec 100 unit/mL subcutaneous solution 96 unit SC QHS 12/03/18 [History Confirmed 10/06/19] omeprazole 20 mg capsule,delayed release 20 mg PO DAILY 12/03/18 [History Confirmed 10/06/19] Beclomethasone Dipropionate [Qvar Redihaler] 2 puff INHALATION BID 07/22/19 [History Confirmed 10/06/19] Fluticasone Propionate 2 spry NASAL DAILY 07/22/19 [History Confirmed 10/06/19] abatacept 125 mg/mL subcutaneous auto-injector 125 mg SC QWEEK 10/06/19 [History Confirmed 10/06/19] calcitriol 0.25 mcg capsule 0.25 mcg PO DAILY cap 10/06/19 [History Confirmed 10/06/19] carvedilol 25 mg tablet 12.5 mg PO BID tab 10/06/19 [History Confirmed 10/06/19] docusate sodium 100 mg capsule 100 mg PO QHS cap 10/06/19 [History Confirmed 10/06/19] lisinopril 10 mg tablet 10 mg PO DAILY tab 10/06/19 [History Confirmed 10/06/19] [facility] Medical History Chronic diastolic (congestive) heart failure (Chronic) Hyperlipidemia (Chronic) Essential (primary) hypertension (Chronic) Chronic renal failure, stage 4 (severe) (Chronic) Asthma (Chronic) Diabetes mellitus type 2 in obese (Chronic) GERD (gastroesophageal reflux disease) (Chronic) EDNA (iron deficiency anemia) (Chronic) Morbid obesity (Chronic) Obstructive sleep apnea (Chronic) Rheumatoid arthritis (Chronic) Acute respiratory failure (Resolved) Surgical History Broken arm (Resolved) Hx of arteriovenostomy for renal dialysis (Resolved 12/2018) Family History Father Hypertension CAD (coronary artery disease) Brother Diabetes Social History (Updated 10/06/19 @ 15:46 by Ting Trinidad PA-C) Smoking Status: Never smoker alcohol intake: current HPI HPI HPI: MADAN SERRATO, is a 59 F who presents to the office today for HPI HPI Surgical H&P: Yes HPI: MADAN SERRATO, is a 59 F who presents to the office today for decreased flow and low clearance of the left forearm fistula. Patient had her fistula created in December of 2018. She has not had any intervention previously on the fistula. We have not evaluated the patient since last April. She notes she has been using the fistula for 2 months now. She notes she dialyzes on green when she is able to see the machine. She denies pain or discomfort at the fistula site. She dialyzes on T, Th and Sat. ROS General General: Yes weight change and fatigue; no appetite, colon cancer, breast cancer or weakness HEENT HEENT: Yes eye injury and eye surgery; no difficulty swallowing, swollen glands or hoarseness Endo Endocrine: Yes diabetes mellitus; no thyroid disease, thyroid cancer, Hair loss, heat intolerance or cold intolerance Skin Skin: No rash or changing moles Breast Breast: No left breast lump, right breast lump, nipple discharge, breast pain, abnormal mammogram, abnormal US or breast enlargement Cardio Cardiovascular: Yes heart disease and high blood pressure; no murmur, pacemaker, atrial fibrillation, heart attack, heart stent, palpitations, shortness of breat with exertion or chest pain Psych Psychiatric: Yes anxiety; no depression or hearing voices Resp Respiratory: Yes shortness of breath, No sleep apnea, No cough, No COPD, No asthma, No emphysema, No wheezing Gastro Gastrointestinal: No abdominal pain, Yes nausea or vomiting, No diarrhea, No constipation, No blood in stool, No acid reflux, No hemorrhoids, No ulcers, No gallbladder problem, No black,tarry stools Jamaal Hematologic: No blood thinners, No blood disorders, No bleeding, Yes anemia, No blood clots Neuro Neurologic: No weakness Exam Const General: cooperative, healthy appearing, comfortable, no acute distress [facility] Head: normal to inspection Eyes General: appearance normal, both eyes and all related structures Neck Neck: normal visual inspection Chest Breast Palpation: No nipple discharge Resp Effort & Inspection: normal respiratory effort Auscultation: clear to auscultation bilaterally Cardio Rate: regular rate Rhythm: regular rhythm Heart Sounds: no murmurs GI Inspection: normal to inspection Auscultation: normal bowel sounds Skin General: no rashes or lesions noted Neuro General: no focal motor deficits, CN's II-XI intact bilaterally Extrem Other: Left forearm transposed AV fistula- good pulse, diminished bruit and thrill Psych Appearance: grossly normal Affect: normal affect Assessment & Plan Problems 1. Problem with dialysis access, initial encounter T82.284H Plan Dr. Lemons will cervantes to perform a non-urgent left forearm AV fistulogram. Procedure details, risks and benefits have been explained to the patient. She is not on any blood thinners. Patient has had the opportunity to ask and have questions answered. Patient verbally understands and agrees with the plan. Patient will need a CBC and BMP 1 week prior to the procedure. Coding Level of Care Code Off vis,est,level 3 Diagnoses Problem with dialysis access, initial encounter T82.067K ??Encounter type: initial encounter 10/06/19 1546 <Electronically signed by Ting Trinidad PA-C> Date I have re-examined the patient. There are no clinical changes since date of exam.
--- NOTE | 2019-10-29 11:20 | PCM.OPRPT ---
Problem List (1) Problem with dialysis access Status: Acute Qualifiers: Encounter type: initial encounter Qualified Code(s): T82.898A - Other specified complication of vascular prosthetic devices, implants and grafts, initial encounter Report of Operation Date of Procedure: 10/29/19 Pre-Operative Diagnosis: Diminished flow left forearm radial to cephalic arteriovenous hemodialysis fistula Post-Operative Diagnosis: Same Surgery/Procedure Performed:: Left upper extremity fistulogram with 6 x 4 Powerflex angioplasty and 6 x 4 ConQuest angioplasty Description of Surgical Findings:: Timeout and informed consent was obtained. 59-year-old female was taken to the special procedure lab placed on the table. The left extremity sterilely prepped and draped. 50 mcg of fentanyl and 1 mg of Versed were given intravenous sedation. Ultrasound was performed. Ultrasound was used to identify the cephalic vein more in the proximal aspect of the left forearm. Under ultrasound guidance 2% lidocaine was instilled as a local anesthetic. Under ultrasound guidance micropuncture needle was inserted retrograde with flow. Micropuncture wire inserted. 6 Nigerian short sheath dilator was inserted. Using 035 angled Glidewire a 5 Nigerian glide cath was placed into the very proximal portion of the fistula adjacent to the arterial anastomosis. The arterial anastomosis and fistula had a very acute angulation and I was not able to get the catheter to go into the radial artery proximal to the anastomosis. I was able to get images and this demonstrated that the proximal 4 cm of the venous portion of the fistula was extremely stenotic. I gave the patient 5000 units of heparin IV. A 6 x 4 Powerflex limb was inserted and inflated up to 17 ramses of pressure. This caused improvement but there was one area of continued residual stenosis. And so a 6 x 4 conquest balloon was inserted and insufflated to 30 ramses of pressure with final release of the areas of residual tight stenosis. A final fistulogram of that area after a 3-minute hold was performed now demonstrating dramatic improvement in the area of diffuse stenosis. The fistulogram was then completed for the left upper arm and chest x-ray demonstrating good central venous outflow. The sheath dilator and balloons were removed. A U suture of 4-0 nylon was placed. Hemostasis was intact. There was a good pulse thrill and bruit at the completion no apparent complication blood loss was minimal. Left forearm radiocephalic arteriovenous hemodialysis fistula with high-grade diffuse venous stenosis of the proximal 4 cm of the fistula resolved with 6 x 4 ConQuest angioplasty. Good cephalic flow of the upper arm and central venous outflow. Jimenez Lemons M.D., F.A.C.S. Type of Anesthesia:: IV Sedation, Local
== END 2019-10-29 12:36 | disposition home or self-care (01) ==
PROVIDERS: PCP Internal Medicine; Referring Provider Surgery; Visit Provider Surgery
DX: T82.858A Stenosis of other vascular prosthetic devices, implants and grafts, initial encounter (principal); I13.0 Hypertensive heart and chronic kidney disease with heart failure and stage 1 through stage 4 chronic kidney disease, or unspecified chronic kidney disease; E11.22 Type 2 diabetes mellitus with diabetic chronic kidney disease; N18.4 Chronic kidney disease, stage 4 (severe); I50.32 Chronic diastolic (congestive) heart failure; E78.5 Hyperlipidemia, unspecified; D50.9 Iron deficiency anemia, unspecified; K21.9 Gastro-esophageal reflux disease without esophagitis; M06.9 Rheumatoid arthritis, unspecified; E66.01 Morbid (severe) obesity due to excess calories; Z99.2 Dependence on renal dialysis; Z79.4 Long term (current) use of insulin
CPT/HCPCS: 36415; 36902; 76937; 80048; 85027; 99152; 99153; Q9967; C1725; C1769

== ENCOUNTER 2019-11-17 13:30 | Outpatient (RCR) | payer OTHER, SELFPAY ==
[2019-10-28 08:25] VITALS: BMI 37.9
== END 2019-12-02 23:59 ==
LOC: DC 13:30
PROVIDERS: PCP Internal Medicine; Visit Provider Internal Medicine
DX: Z71.3 Dietary counseling and surveillance (principal); E11.22 Type 2 diabetes mellitus with diabetic chronic kidney disease; N18.4 Chronic kidney disease, stage 4 (severe)
CPT/HCPCS: 97803; G0108

== ENCOUNTER 2020-01-28 16:29 | Observation (INO) | payer OTHER, MEDICARE, SELFPAY ==
[2019-10-28 08:25] VITALS: BMI 37.9
--- NOTE | 2020-01-28 15:54 | HP.PCM_ITS ---
Problem List (1) Problem with dialysis access Status: Resolved Qualifiers: (2) Chronic diastolic (congestive) heart failure Status: Chronic (3) Hyperlipidemia Status: Chronic (4) Essential (primary) hypertension Status: Chronic (5) Chronic renal failure, stage 4 (severe) Status: Chronic History of Present Illness Date of Admission: 01/28/20 Chief Complaint: Knee pain. The patient is a 59 year old F who presents from [place] [facility] due to knee pain. Patient states on Sunday she ran out of her Orencia due to not receiving her mail prescription and time and has had increased bilateral knee pain, worsening since that time. She has a history of rheumatoid arthritis. She states today she was in her chair and was unable to get out of the chair or ambulate due to significant pain. She was sent to [facility] emergency room and transferred to [facility] as [facility] does not have dialysis. Patient undergoes dialysis Sunday, , Sunday. She follows with Dr. Jernigan. Patient denies shortness of breath, chest pain or other associated symptoms or complaints. She has a past medical history of type 2 diabetes mellitus, rheumatoid arthritis, GERD, hypertension, hyperlipidemia, end-stage renal disease on hemodialysis, obesity. Past Medical History Past Medical History (Chronic Problems): Chronic Problems (Last Reviewed 10/06/19 @ 13:08 by Symone Rose) Chronic diastolic (congestive) heart failure (Chronic) Hyperlipidemia (Chronic) Essential (primary) hypertension (Chronic) Chronic renal failure, stage 4 (severe) (Chronic) Medical History: Medical History (Last Reviewed 10/06/19 @ 13:08 by Symone Rose) Chronic diastolic (congestive) heart failure (Chronic) I50.32 Hyperlipidemia (Chronic) E78.5 Essential (primary) hypertension (Chronic) I10 Chronic renal failure, stage 4 (severe) (Chronic) N18.4 Asthma J45.909 Diabetes mellitus type 2 in obese E11.69, E66.9 GERD (gastroesophageal reflux disease) K21.9 EDNA (iron deficiency anemia) D50.9 Morbid obesity E66.01 Obstructive sleep apnea G47.33 Rheumatoid arthritis M06.9 Acute respiratory failure J96.00 Allergies No Known Allergies Allergy (Verified 10/06/19 13:08) Home Medications: Ambulatory Orders Medication Instructions Recorded atorvastatin 40 mg tablet 40 mg PO DAILY 12/03/18 ergocalciferol (vitamin D2) 1,250 50,000 unit PO QWEEK 12/03/18 mcg (50,000 unit) capsule insulin degludec 100 unit/mL 96 unit SC QHS 12/03/18 subcutaneous solution omeprazole 20 mg capsule,delayed 20 mg PO DAILY 12/03/18 release Beclomethasone Dipropionate [Qvar 2 puff INHALATION BID 07/22/19 Redihaler] Fluticasone Propionate 2 spry NASAL DAILY 07/22/19 abatacept 125 mg/mL subcutaneous 125 mg SC QWEEK 10/06/19 auto-injector calcitriol 0.25 mcg capsule 0.25 mcg PO DAILY cap 10/06/19 carvedilol 25 mg tablet 12.5 mg PO BID tab 10/06/19 docusate sodium 100 mg capsule 100 mg PO QHS cap 10/06/19 lisinopril 10 mg tablet 10 mg PO DAILY tab 10/06/19 Surgical History: Surgical History (Last Reviewed 10/06/19 @ 13:08 by Symone Rose) Broken arm S42.309A Hx of arteriovenostomy for renal dialysis Onset Date: 12/2018 Z99.2 12/26/18 Surgical History: - - AV fistula ([place]) 2019 Psychiatric History: No pertinent psych hx 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 Lives: Alone Smoking Status: Never smoker Alcohol: None Drugs: None - *Family History Maternal Family History: Family History (Last Reviewed 10/06/19 @ 13:08 by Symone Rose) Father Hypertension CAD (coronary artery disease) Brother Diabetes History Items: Hypertension Paternal Family History: Family History (Last Reviewed 10/06/19 @ 13:08 by Symone Rose) Father Hypertension CAD (coronary artery disease) Brother Diabetes History Items: Hypertension Review of Systems Constitutional: Denies: Chills, Fever, Weight Change HEENT: Denies: Head Aches, Sinus Congestion, Sinus Drainage Cardiovascular: Denies: Chest Pain, Palpitations Respiratory: Denies: Cough, Shortness of breath at rest, Sputum production Gastrointestinal: Denies: Abdominal Pain, Nausea, Vomiting Genitourinary: Denies: Dysuria Musculoskeletal: Reports: - - Bilateral knee pain, - - Left arm AV fistula Skin: Denies: Rash, Wounds Neurological: Denies: Numbness, Tingling, Focal weakness Psychiatric: Denies: Anxiety, Depression, Homicidal Ideations, Suicidal Ideations Hematologic/ Lymphatic: Denies: Easy Bruising, Easy Bleeding VTE Information - Inpt Only VTE Present on Admission: No VTE Mechan Device Prophylaxis: None VTE Pharm Prophylaxis ordered?: Yes - Physical Exam Vitals/I&O's: Body Mass Index (BMI) 37.9 General: Alert, Oriented x3, Cooperative HEENT: Atraumatic, PERRLA, EOMI, Normocephalic Neck: Supple, No JVD, Negative Carotid Bruits Lungs: Clear to auscultation, Diminished Cardiovascular: Regular rate, No murmurs Abdomen: Bowel Sounds Present, Soft, Non Tender, Non-Distended, Obese Extremities: No clubbing, No cyanosis, No edema, Capillary Refill Less than 3 Seconds Skin: No rashes, No breakdown Musculoskeletal: No Tenderness to Palpation of Joints or Extremities, - - Left forearm AV fistula Neurological: Cranial nerves II-XII grossly intact, Neuro grossly intact Psych/Mental Status: Normal Affect, Appropriate Assessment/Plan All Active Problems (Last Reviewed 10/06/19 @ 13:08 by Symone Rose) Problem with dialysis access (Resolved) 1. Bilateral knee pain with debility secondary to rheumatoid arthritis exacerba tion-IV Decadron. PT/OT. PRN pain regimen. Patient reports she ran out of [facility]. We will see if our pharmacy carries to give dose during admission. 2. End-stage renal disease on hemodialysis-consult Dr. Jernigan for dialysis. 3. Type 2 diabetes [id number] with sliding scale insulin. Continue home long-acting regimen. 4. Hypertension-elevated on admission. Continue home carvedilol, lisinopril. PRN hydralazine for systolic blood pressure greater than 160. 5. Hyperlipidemia-continue statin. 6. GERD-continue PPI. 7. Obesity- encouraged diet and lifestyle modifications. DVT prophylaxis-heparin subcu This patient was seen by BESS Barnes under the supervision of Dr. Le.
[2020-01-28 16:05] VITALS: BP 184/101; PULSE 92; PULSE 94; RESP 16; TEMP 36.8; O2SAT 99; BMI 38.5; BMI 38.6
[2020-01-28 17:01] LABS: Bedside Glucose 319 mg/dL (70-110)
--- NOTE | 2020-01-28 18:31 | NURSING ---
Per Dr Le, wants pt to take Orencia home medication. Medication sent to pharmacy for verification.
[2020-01-28 19:20] VITALS: PULSE 107
[2020-01-28] MEDS: Heparin 10,000 UNITS/10 ML Vial 10000 UNITS IV (20:55)
[2020-01-28 21:20] VITALS: BP 166/87; PULSE 100; RESP 16; TEMP 36.5; O2SAT 95
[2020-01-28 22:41] LABS: Bedside Glucose 254 mg/dL (70-110)
--- NOTE | 2020-01-28 22:57 | NURSING ---
MEDICATIONS LATE DUE TO PATIENT GETTING DIALYSIS AT THIS TIME.
[2020-01-29 01:00] VITALS: BP 144/79; PULSE 99; RESP 18; TEMP 36.6; O2SAT 96
[2020-01-29 01:07] VITALS: BP 120/69; PULSE 97; RESP 20; TEMP 36.7
--- NOTE | 2020-01-29 01:08 | DIALYSIS ---
Hemodialysis complete x 3.5 hours. 1500 ml net fluid removed. Patient tolerated well. LFA AVF cannulated with 15g needles without problem. Guild removed after treatment, stasis achieved, dry dressings applied. Report given to Linh.
[2020-01-29] MEDS: Docusate Sodium 100 MG Capsule PO ×2 (01:17→08:03)
[2020-01-29] MEDS: Acetaminophen 325 MG Tablet 650 MG PO (01:17)
[2020-01-29] MEDS: Carvedilol 12.5 MG Tablet PO ×2 (01:17→08:04)
[2020-01-29] MEDS: 0.9% Saline Lock 10 ML Syringe IV ×2 (01:21→06:23)
[2020-01-29 01:55] LABS: Bedside Glucose 187 mg/dL (70-110)
[2020-01-29 03:23] VITALS: PULSE 99
[2020-01-29 06:30] VITALS: BP 148/74; PULSE 95; RESP 18; TEMP 36.3; O2SAT 95
[2020-01-29 06:50] LABS: Bedside Glucose 224 mg/dL (70-110)
[2020-01-29 07:51] VITALS: PULSE 90
[2020-01-29] MEDS: Insulin Lispro 100 UNIT/ML INSULN.PEN SC (08:01)
[2020-01-29] MEDS: Pantoprazole Sodium 20 MG Tablet PO (08:04)
[2020-01-29] MEDS: Lisinopril 20 MG Tablet PO (08:04)
[2020-01-29] MEDS: Heparin Injection (Vial) 5,000 UNIT/ML VIAL 5000 UNIT SC (08:05)
[2020-01-29] MEDS: Calcitriol 0.25 MCG Capsule PO (08:05)
[2020-01-29 08:26] VITALS: BP 128/62; PULSE 78; RESP 16; TEMP 37.1; O2SAT 95
--- NOTE | 2020-01-29 10:02 | DCINST_ITS ---
You will use the following diet at home:: Calorie/Carbohydrate Controlled (specify 1200, 1400, etc) - 1800 jules / day, Cardiac Your food should be the consistency of: Regular Your liquids should be the consistency of: Regular/Thin Discharge Activity: Return to Normal Activity Allergies/Adverse Reactions: Allergies No Known Allergies Allergy (Verified 10/06/19 13:08) Medications to take at Discharge atorvastatin 40 mg tablet 40 mg PO DAILY 12/03/18 insulin degludec 100 unit/mL subcutaneous solution 96 unit SC QHS 12/03/18 omeprazole 20 mg capsule,delayed release 20 mg PO DAILY 12/03/18 Beclomethasone Dipropionate [Qvar Redihaler] 2 puff INHALATION BID 07/22/19 Fluticasone Propionate 2 spry NASAL DAILY PRN 07/22/19 abatacept 125 mg/mL subcutaneous auto-injector 125 mg SC QWEEK 10/06/19 calcitriol 0.25 mcg capsule 0.25 mcg PO DAILY cap 10/06/19 carvedilol 25 mg tablet 12.5 mg PO BID tab 10/06/19 docusate sodium 100 mg capsule 100 mg PO BID cap 10/06/19 lisinopril 10 mg tablet 20 mg PO DAILY tab 10/06/19 Ondansetron HCl [Zofran] 4 mg PO 01/28/20 Sevelamer Carbonate 0.8 gm PO TID 01/28/20 predniSONE tablet 20 mg PO BID #10 tab 01/29/20 The following prescriptions were given: predniSONE tablet 20 mg PO BID #10 tab Transmission Status: Pending to [facility]/pharmacy #[id number] Primary Care Physician: Ember Santos MD [Primary Care Provider] - Please follow up with your Primary Care Physician in: 1-2 weeks Test Results: Test results from this visit will be discussed in further detail at your follow- up appointment, if applicable. Please Follow Up With: Your dialysis When: today Please Follow Up With: Maral Abbasi MD When: 1-2 weeks Proposed Discharge Date: 01/29/20
--- NOTE | 2020-01-29 10:09 | CASEMGMT ---
Call to [facility] and pt's nurse, Lupe, states that pt's normal chair time is 1010 but she states that they can still run her today there if we get her there by 12n. Pt aware and initially states that she needs her 'special pillow and blankets' and does not have a ride. Advised pt that she will need to get a ride at discharge anyway and pt states will attempt to call neighbor at this time. Pt then states that neighbor will be here to pick her up and take her to dialysis. Call to [facility] to notify Lupe, voices understanding that pt will be there for treatment by noon. Naheed TOTH aware, voices understanding and pt discharged at this time, awaiting ride. Tyson NATION CM
--- NOTE | 2020-01-29 10:30 | DIALYSIS ---
This HD RN phone ahead before arrival to hospital floor and to Dr Jernigan to confirm HD today. After arrival and singe machine operator in pt's room, pt was able to instead be d/c to a later time at her chronic unit. No HD today at hospital.
--- NOTE | 2020-01-29 15:02 | DS.PCM_ITS ---
Discharge Date and Diagnosis Date of Admission: 01/28/20 Date of Discharge: 01/29/20 - Primary Discharge Diagnosis Acute Problems: Inability to ambulate 2/2 rheumatoid arthritis ESRD with missed dialysis Hx chronic diastolic CHF HTN HLD - Secondary Discharge Diagnosis Chronic Problems: Chronic Problems (Last Reviewed 10/06/19 @ 13:08 by Symone Rose) Chronic diastolic (congestive) heart failure (Chronic) Hyperlipidemia (Chronic) Essential (primary) hypertension (Chronic) Chronic renal failure, stage 4 (severe) (Chronic) Hospital Course and Treatment Operations: None Procedures: None Summary of Care Provided: Hospital course: The patient is a 59 year old F with pmhx of RA/mixed connective tissue disorder pt of Dr. Brown, hx ESRD on HD with Dr. Jernigan, who presented to [facility] with BL knee ain. She had run out of Orencia and had not received her mail order prescription refill that she said she took for RA. She was unable to get out of her chair, could not stand on her own, and could not ambulate. She had missed dialysis as she was having too much pain to go. She was transferred to [facility] for admission. He was provided dialysis the day of admission. She was placed on IV steroids for RA. By the following day she felt that she was back to her normal self. She was able to ambulate. She was transitioned to oral prednisone and will complete 5 days. She was able to get the Orencia that she took at home. She was discharged home in stable condition. She will need follow up with Dr. Jernigan as directed, with her PCP in 1-2 weeks, and with rheumatology in 2 weeks. This patient was seen by Bebo Lynn PA-C under the supervision of Doctor Le. [] - Physical Exam Vitals/I&O's: Vital Signs Temp Pulse Resp BP Pulse Ox 98.7 F 78 16 128/62 H 95 01/29/20 08:26 01/29/20 08:26 01/29/20 08:26 01/29/20 08:26 01/29/20 08:26 Oxygen Delivery Method Room Air Weight: 235 lb 3.732 oz Body Mass Index (BMI) 38.5 Intake and Output for Last 24 Hours 01/27/20 01/28/20 01/29/20 23:59 23:59 23:59 Intake Total 340 / 340 Output Total 1500 / 1500 Balance -1160 / -1160 General: Alert, Oriented x3, Cooperative HEENT: Atraumatic, PERRLA, EOMI, Normocephalic Neck: Supple, No JVD, Negative Carotid Bruits Lungs: Clear to auscultation, Normal air movement Cardiovascular: Regular rate, No murmurs Abdomen: Bowel Sounds Present, Soft, Non Tender Extremities: No edema, Capillary Refill Less than 3 Seconds Skin: No rashes, No breakdown Musculoskeletal: No Tenderness to Palpation of Joints or Extremities Neurological: Cranial nerves II-XII grossly intact Psych/Mental Status: Normal Affect, Appropriate, Alert and oriented to time, place, person, mood and affect Laboratory Results 01/28/20 16:50: POC Glucose 319 H 01/28/20 21:33: POC Glucose 254 H 01/29/20 01:07: POC Glucose 187 H 01/29/20 06:21: POC Glucose 224 H Discharge Diet: Low fat/ Low Cholesterol, 1800 Calorie Control Diet, 2000 mg Sodium Diet, Renal Diet Discharge Activity: Return to Normal Activity Home Medications: Medications to take at Discharge atorvastatin 40 mg tablet 40 mg PO DAILY 12/03/18 insulin degludec 100 unit/mL subcutaneous solution 96 unit SC QHS 12/03/18 omeprazole 20 mg capsule,delayed release 20 mg PO DAILY 12/03/18 Beclomethasone Dipropionate [Qvar Redihaler] 2 puff INHALATION BID 07/22/19 Fluticasone Propionate 2 spry NASAL DAILY PRN 07/22/19 abatacept 125 mg/mL subcutaneous auto-injector 125 mg SC QWEEK 10/06/19 calcitriol 0.25 mcg capsule 0.25 mcg PO DAILY cap 10/06/19 carvedilol 25 mg tablet 12.5 mg PO BID tab 10/06/19 docusate sodium 100 mg capsule 100 mg PO BID cap 10/06/19 lisinopril 10 mg tablet 20 mg PO DAILY tab 10/06/19 Ondansetron HCl [Zofran] 4 mg PO 01/28/20 Sevelamer Carbonate 0.8 gm PO TID 01/28/20 predniSONE tablet 20 mg PO BID #10 tab 01/29/20 Following Prescrptions Were Given to Patient: predniSONE tablet 20 mg PO BID #10 tab Transmission Status: Received by [facility]/pharmacy #[id number] Primary Care Physician: Ember Santos MD [Primary Care Provider] - Please follow up with your Primary Care Physician in: 1-2 weeks Please Follow Up With: Your dialysis When: today Please Follow Up With: Maral Abbasi MD When: 1-2 weeks Disposition: Home Minutes spent on discharge:: 35 Patient Condition:: Stable Medical Necessity - Tobacco Use Smoking Status: Never smoker Meaningful Use Info Meaningful Use Diagnoses (Choose all that apply): None applicable
== END 2020-01-29 10:03 | disposition home or self-care (01) ==
PROVIDERS: PCP Internal Medicine; Visit Provider Internal Medicine
DX: M06.9 Rheumatoid arthritis, unspecified (principal); E11.22 Type 2 diabetes mellitus with diabetic chronic kidney disease; I13.2 Hypertensive heart and chronic kidney disease with heart failure and with stage 5 chronic kidney disease, or end stage renal disease; N18.6 End stage renal disease; I50.32 Chronic diastolic (congestive) heart failure; E78.5 Hyperlipidemia, unspecified; K21.9 Gastro-esophageal reflux disease without esophagitis; J45.909 Unspecified asthma, uncomplicated; G47.33 Obstructive sleep apnea (adult) (pediatric); E66.01 Morbid (severe) obesity due to excess calories; Z68.38 Body mass index [BMI] 38.0-38.9, adult; Z99.2 Dependence on renal dialysis; Z79.899 Other long term (current) drug therapy; Z79.4 Long term (current) use of insulin
CPT/HCPCS: 82962; 90937; 96372; 96374; 96375; 96376; 99218; J7030; A4216; G0257; G0378; G0379

== ENCOUNTER → 2020-03-01 06:51 | Outpatient (CLI) | payer OTHER, MEDICARE, SELFPAY ==
[2019-09-10 14:33] VITALS: BMI 37.9
[2020-02-23 14:29] VITALS: BMI 38.5
--- NOTE | 2020-03-01 11:22 | STRESSREP ---
Stress Test Report Pharmacologic myocardial perfusion stress test. 59-year-old lady with a history of shortness of breath. Stress protocol: Resting EKG demonstrates normal sinus rhythm with a rate of 87 bpm T wave inversions noted in lead I and aVL. Resting blood pressure is 162/64 mmHg. 0.4 mg of regadenoson was infused per usual protocol followed by Intravenous saline flush injection continuous EKG monitoring was performed. The maximum heart rate attained was 108 bpm which was 67% of maximum predicted heart rate the maximum workload was 1 metabolic equivalent. The patient maintained sinus rhythm throughout the recording with the EKG changes noted above present throughout. The final blood pressure was 152/80. No clinical angina was noted. Myocardial perfusion protocol. 14.8 mCi of technetium 99m sestamibi was injected at rest. 0.4 mg of regadenoson was infused per usual protocol. At peak infusion 44.5 mCi of technetium 99m sestamibi was injected stress images were obtained stress and rest images were reconstructed and compared in the short axis vertical long horizontal long axis. Gated images were also obtained. Perfusion SPECT analysis: Review of the stress images demonstrate normal uptake of tracer noted in all areas of the myocardium the resting images similarly demonstrate normal uptake of tracer noted in all areas of the myocardium. No reversibility is noted to suggest ischemia no previous infarct is noted. Gated SPECT analysis: The gated ejection fraction is 56%. Conclusion: Normal pharmacologic myocardial perfusion stress test. Preserved ejection fraction.
== END ==
PROVIDERS: Family Provider Internal Medicine; PCP Internal Medicine; Referring Provider Internal Medicine Cardiovascular Disease; Visit Provider Internal Medicine Cardiovascular Disease
DX: I11.0 Hypertensive heart disease with heart failure (principal); I50.32 Chronic diastolic (congestive) heart failure
CPT/HCPCS: 78452; 93017; A9500; A4216; J2785

== ENCOUNTER → 2020-03-17 08:09 | Outpatient (CLI) | payer OTHER, MEDICARE, SELFPAY ==
[2020-02-23 14:29] VITALS: BMI 38.5
[2020-03-17] VITALS (8 sets, daily range): BP systolic 123–164; BP diastolic 60–72; PULSE 75–81; RESP 12–18; TEMP 36.7–37.3; O2SAT 94–100; BMI 38.4
[2020-03-17] MEDS: 0.9% NaCl Peripheral Flush Adult/Peds IV (08:35)
== END ==
PROVIDERS: PCP Internal Medicine; Referring Provider Internal Medicine Nephrology; Visit Provider Internal Medicine Nephrology
DX: D64.9 Anemia, unspecified (principal)
CPT/HCPCS: 36415; 36430; 86850; 86900; 86901; 86920; 86922; J7040; P9016; P9040; A4216

== ENCOUNTER → 2020-04-02 13:11 | Outpatient (CLI) | payer OTHER, MEDICARE, SELFPAY ==
[2020-03-17 08:36] VITALS: BMI 38.4
--- NOTE | 2020-04-02 13:13 | CT_ITS ---
STUDY: CT ABDOMEN AND PELVIS WITH AND WITHOUT CONTRAST REASON FOR EXAM: Female, 59 years old. LEFT FLANK PAIN, DIALYSIS PATIENT, LOW HGB RADIATION DOSAGE (If Supplied By Facility): CTDIvol = ( 25.74 ) mGy, DLP = ( 3696.74 ) mGycm TECHNIQUE: Transaxial images were obtained from the dome of the diaphragm to the symphysis pubis without oral contrast. was administered. Sagittal and coronal images were reconstructed. Individualized dose optimization techniques were used for this CT. COMPARISON: None. FINDINGS: Small left pleural effusion with consolidation in the left lower lobe. The visualized portions of the heart are within normal limits. Normal liver. Small gallstones are seen along the dependent portion of the gallbladder lumen. Normal spleen. Normal pancreas. Normal bilateral adrenal glands. Small bilateral renal cysts. I suspect a 2.8 cm x 3 cm solid mass in the anterior midportion of the right kidney. Correlation with ultrasound is recommended. Normal visualized stomach. Normal small intestine. There are multiple colonic diverticula consistent with diverticulosis. The appendix is visualized and appears normal. There is diffuse atherosclerotic calcification of the abdominal aorta and its visceral branches including the splenic artery., without a demonstrated aneurysm. Normal inferior vena cava. Normal retroperitoneum. Normal urinary bladder. There is a moderate-sized umbilical hernia containing fat. Normal osseous structures. CT/CT Abd/Pelvis W/WO Contrast IMPRESSION: Small left pleural effusion with left basilar consolidation. Small gallstones along the dependent portion of the gallbladder lumen. Bilateral renal cysts. I suspect a 2.8 cm x 3 cm solid mass in the anterior midportion of the right kidney. Correlation with ultrasound is recommended. Moderate-sized umbilical hernia containing fat. Sigmoid diverticulosis. Electronically Signed: Wili Kruger, at 14:04 EDT , Service support ,
== END ==
PROVIDERS: PCP Internal Medicine; Referring Provider Internal Medicine Nephrology; Visit Provider Internal Medicine Nephrology
DX: R10.9 Unspecified abdominal pain (principal)
CPT/HCPCS: 74178; Q9967

== ENCOUNTER 2020-04-19 08:18 | Day surgery (SDC) | payer OTHER, MEDICARE, SELFPAY ==
[2020-04-05 14:34] VITALS: BMI 38.4
[2020-04-13 15:40] LABS: Hematocrit 26.2 % (37-47); Mean Corp Hgb Conc 30.5 g/dL (32-36); Mean Corpuscular Volume 94.9 fL (81-99); Mean Platelet Vol. 10.3 fl (6.2-12.0); Platelet Count 195 K/mm3 (150-450); RBC Distribution Width CV 17.9 % (11.6-14.6); RBC Distribution Width SD 61.2 fl (35.1-43.9); Red Blood Count 2.76 M/mm3 (4.2-5.4); White Blood Count 6.8 K/mm3 (4.4-11.0)
[2020-04-13 16:13] LABS: Anion Gap 7 (5-15); BUN 39 mg/dL (7-18); Calcium,Total 8.7 mg/dL (8.5-10.1); Chloride 96 mmol/L (98-107); Creatinine, Serum 4.35 mg/dL (0.55-1.02); EST Glomerular Filtration Rate 11 mL/min (>60); Est Glom Filt Rate - Afr Amer 13 mL/min (>60); Glucose 149 mg/dL (74-106); Potassium 3.2 mmol/L (3.5-5.1); Sodium Level 136 mmol/L (136-145)
[2020-04-16 09:35] VITALS: BMI 38.4
[2020-04-19 08:30] LABS: Hemoglobin 8.4 g/dL (12.0-15.0)
--- NOTE | 2020-04-19 09:23 | HP.PCM_ITS ---
Problem List (1) Problem with dialysis access Status: Acute Qualifiers: History and Physical Date of Admission: 04/19/20 Intake Visit Reasons: ACCESS FLOW DECREASING Chief Complaint: Fistula check Manufacturing Coordinator Required: No Is patient in pain?: No Allergies No Known Allergies Allergy (Verified 04/05/20 14:33) Medications atorvastatin 40 mg tablet 40 mg PO DAILY 12/03/18 [History Confirmed 04/05/20] omeprazole 20 mg capsule,delayed release 20 mg PO DAILY 12/03/18 [History Confirmed 04/05/20] abatacept 125 mg/mL subcutaneous auto-injector 125 mg SC QWEEK 10/06/19 [History Confirmed 04/05/20] calcitriol 0.25 mcg capsule 0.25 mcg PO DAILY cap 10/06/19 [History Confirmed 04/05/20] docusate sodium 100 mg capsule 100 mg PO BID cap 10/06/19 [History Confirmed 04/05/20] lisinopril 10 mg tablet 20 mg PO DAILY tab 10/06/19 [History Confirmed 04/05/20] Ondansetron HCl [Zofran] 4 mg PO PRN PRN 01/28/20 [History Confirmed 04/05/20] Sevelamer Carbonate 0.8 gm PO TID 01/28/20 [History Confirmed 04/05/20] carvedilol 25 mg tablet 25 mg PO BID tab 03/08/20 [History Confirmed 04/05/20] semaglutide 0.25 mg SC QWEEK 03/08/20 [History Confirmed 04/05/20] [facility] Medical History Chronic diastolic (congestive) heart failure (Chronic) Hyperlipidemia (Chronic) Essential (primary) hypertension (Chronic) Chronic renal failure, stage 4 (severe) (Chronic) Asthma (Chronic) Diabetes mellitus type 2 in obese (Chronic) GERD (gastroesophageal reflux disease) (Chronic) EDNA (iron deficiency anemia) (Chronic) Morbid obesity (Chronic) Obstructive sleep apnea (Chronic) Rheumatoid arthritis (Chronic) Acute respiratory failure (Resolved) Surgical History Broken arm (Resolved) Hx of arteriovenostomy for renal dialysis (Resolved 12/2018) Family History Father Hypertension CAD (coronary artery disease) Brother Diabetes Social History (Updated 04/05/20 @ 15:[address] Jimenez Lemons MD) Smoking Status: Never smoker alcohol intake: current HPI HPI HPI: MADAN SERRATO, is a 59 F who presents to the office today for ongoing surgical care. The patient has a left forearm radiocephalic AV fistula. My most recent intervention was October 29, 2019. I performed a left upper ext remity fistulogram with initially a 6 x 4 Powerflex angioplasty and then a 6 x 4 conquest angioplasty. This was performed of the proximal portion of the fistula. It is of note that I was not able to get retrograde access into the artery. The patient is referred back now from the dialysis center with diminishing access flows noted. The patient also notes that whereas the fistula had been extraordinarily vigorous previously and she could hear it when she slept that seems to have diminished. She denies any pain in her hand. She otherwise feels that dialysis is progressing well. HPI HPI HPI: MADAN SERRATO, is a 59 F who presents to the office today for ROS General General: Yes weight change and fatigue; no appetite, colon cancer, breast cancer or weakness HEENT HEENT: Yes eye injury and eye surgery; no difficulty swallowing, swollen glands or hoarseness Endo Endocrine: Yes diabetes mellitus; no thyroid disease, thyroid cancer, Hair loss, heat intolerance or cold intolerance Skin Skin: No rash or changing moles Breast Breast: No left breast lump, right breast lump, nipple discharge, breast pain, abnormal mammogram, abnormal US or breast enlargement Cardio Cardiovascular: Yes heart disease and high blood pressure; no murmur, pacemaker, atrial fibrillation, heart attack, heart stent, palpitations, shortness of breat with exertion or chest pain Psych Psychiatric: Yes anxiety; no depression or hearing voices Resp Respiratory: Yes shortness of breath, No sleep apnea, No cough, No COPD, No asthma, No emphysema, No wheezing Gastro Gastrointestinal: No abdominal pain, Yes nausea or vomiting, No diarrhea, No constipation, No blood in stool, No acid reflux, No hemorrhoids, No ulcers, No gallbladder problem, No black,tarry stools Jamaal Hematologic: No blood thinners, No blood disorders, No bleeding, Yes anemia, No blood clots Neuro Neurologic: No weakness Exam Const General: cooperative, comfortable, no acute distress Nutritional Appearance: overweight Chest Chest palpation & inspection: normal inspection of the chest Breast Palpation: No nipple discharge Resp Effort & Inspection: normal respiratory effort Auscultation: clear to auscultation bilaterally Cardio Rate: regular rate Rhythm: regular rhythm Heart Sounds: no murmurs GI Palpation: soft Extrem Other: Left forearm radiocephalic AV fistula with pulse and thrill and bruit. Ultrasound inspection reveals that the anastomosis appears to be widely patent with the radial artery. The proximal couple centimeters of the fistula appear widely patent and there is a relative area of stenosis approximately 4 to 5 cm from the anastomosis. This is in a location where multiple needle puncture sites are evident Assessment & Plan Problems 1. Problem with dialysis access, initial encounter T82.898A Plan Diminishing flows left forearm radiocephalic AV fistula. On clinical examination a pulse and thrill and bruit still present however on ultrasound inspection there is an area of relative stenosis in the proximal approximately 4 cm of the fistula. This seems to be at a site of heavy cannulation. I recommended the patient a left upper extremity fistulogram. I will anticipate using ultrasound to gaining access closer to the antecubital space retrograde with flow. As noted a previous 6 x 4 Powerflex and then [employer] balloon was utilized. She has had an opportunity to ask and have questions answered. She is aware of Covid-19 pandemic. She is aware that the [facility] is reporting a low local incidence. We will schedule and proceed at her discretion Jimenez Lemons M.D., F.A.C.S. Coding Level of Care Code Off vis,est,level 2 Diagnoses Problem with dialysis access, initial encounter T82.194U ??Encounter type: initial encounter I have re-examined the patient. There are no clinical changes since date of exam. Procedure Criteria Procedure Type: Elective COVID Risk Discussion: The surgeon/proceduralist and patient have discussed in detail the risk of exposure to and/or potential harm posed by the COVID-19 virus with having a surgery/procedure at this time versus the risk of delaying the surgery/procedure. It is not possible to know either the risk of delaying the surgery or procedure or chance of getting an infection with perfect accuracy, but a joint decision was made between the patient and the surgeon/proceduralist to proceed at this time with the scheduled surgery/procedure as indicated on the consent form.
--- NOTE | 2020-04-19 12:17 | OP.PCM_ITS ---
Problem List (1) Problem with dialysis access Status: Acute Qualifiers: Report of Operation Date of Procedure: 04/19/20 Pre-Operative Diagnosis: Diminished flow left forearm radial to cephalic arch tear venous hemodialysis fistula Post-Operative Diagnosis: High-grade proximal fistula venous stenosis and arterial anastomotic stenosis Surgery/Procedure Performed:: Left upper extremity fistulogram with 6 x 2 Cutting Balloon angioplasty and 7 x 2 Cutting Balloon angioplasty and 6 x 4 Powerflex angioplasty and 5 x 2 Powerflex angioplasty proximal fistula and arterial anastomosis Description of Surgical Findings:: Timeout and informed consent was obtained. 59-year-old female was taken to the special procedures lab placed upon the table. 50 mcg of fentanyl and 2 mg of Versed were given intravenous sedation. The left upper extremity was sterilely prepped draped. Ultrasound was used to inject 2% lidocaine closer to the antecubital space retrograde with flow. Micropuncture needle inserted. Micropuncture wire inserted. 6 [place] short sheath was inserted. Using an 035 angled Glidewire and a 5 [place] angled glide cath access was gained to the radial artery proximal to the anastomosis. Using Isovue contrast a fistulogram was obtained. This demonstrated high-grade proximal fistula venous stenosis. So then I placed the glide cath much more proximally in the radial artery and I placed a SV 5 wire. I placed a 6 x 2 Cutting Balloon. This point the patient received 5000 units of heparin intravenously. Balloon angioplasty of the very proximal portion of the fistula just to just arterial anastomosis was performed however the balloon rapidly malfunctioned. We did not have an additional 6 x 2 so I used a 7 x 2 cutting balloon and balloon angioplasty of the proximal portion of the fistula was performed. Tight stenosis was encountered and very careful slow insufflation was performed until release was achieved. There was evidence of some leakage so I then placed a 6 x 4 Powerflex balloon to help assist with tamponade a that area. That was sent over an 035 stiff Glidewire. I was then able to get a 5 x 2 Powerflex balloon and across the anastomosis and performed balloon angioplasty of the radial artery cephalic vein anastomotic area. Continue to have issues and that we had up sheath to a 7 [place] sheath and yet flow would not go proximal to the sheath. I tried injecting 100 mcg of nitroglycerin. This did not appear to improve the situation. I was unable to complete the upper arm outflow because of the sheath occupying the space. At this point I felt that I had contained the leakage at the distal wrist. I felt that I got good results from the angioplasty of the stenosis of the proximal portion of the fistula and arterial anastomosis. I elected to pull the sheath placed a U suture of 4-0 nylon. At the completion there was a slight palpable thrill I used Doppler and was able to hear audible thrill throughout. She tolerated procedure well she was comfortable she was taken to recovery area in satisfactory edition no apparent complication. Images demonstrate a left forearm radiocephalic AV fistula. There is an area of about 3 to 4 cm of high-grade venous stenosis adjacent to the anastomosis with a focal area of about 50% anastomotic stenosis. Subsequent to the angioplasty there is now resolved area of stenosis. There is a slight defect in the cephalic vein distally but it appears that that leakage is contained. The patient had received heparin so I elected to take a very conservative approach not reverse her as it was not proximal flow identified on the fistulogram but not treat her with a stent graft in hopes that the small area of pseudoaneurysm change would resolve. She is taken to recovery area in satisfactory condition she will be observed. We will have short-term surgical follow-up scheduled as well. Impression: Successfully treated left forearm radiocephalic AV fistula. Jimenez Lemons M.D., F.A.C.S. Type of Anesthesia:: IV Sedation, Local
== END 2020-04-19 13:25 | disposition home or self-care (01) ==
LOC: CLSP 08:19
PROVIDERS: PCP Internal Medicine; Referring Provider Surgery; Visit Provider Surgery
DX: T82.858A Stenosis of other vascular prosthetic devices, implants and grafts, initial encounter (principal); E11.22 Type 2 diabetes mellitus with diabetic chronic kidney disease; I13.0 Hypertensive heart and chronic kidney disease with heart failure and stage 1 through stage 4 chronic kidney disease, or unspecified chronic kidney disease; N18.4 Chronic kidney disease, stage 4 (severe); I50.32 Chronic diastolic (congestive) heart failure; Z99.2 Dependence on renal dialysis; E78.5 Hyperlipidemia, unspecified; J45.909 Unspecified asthma, uncomplicated; K21.9 Gastro-esophageal reflux disease without esophagitis; D50.9 Iron deficiency anemia, unspecified; E66.01 Morbid (severe) obesity due to excess calories; G47.33 Obstructive sleep apnea (adult) (pediatric); M06.9 Rheumatoid arthritis, unspecified; Z79.899 Other long term (current) drug therapy
CPT/HCPCS: 36415; 36902; 76937; 80048; 85018; 85027; 99152; 99153; C1725; Q9967; C1769; C1894

== ENCOUNTER → 2020-10-12 15:08 | Outpatient (CLI) | payer OTHER, MEDICARE, SELFPAY ==
[2020-05-05 05:43] VITALS: BMI 38.4
--- NOTE | 2020-10-12 15:21 | RAD_ITS ---
STUDY: X-RAY CHEST REASON FOR EXAM: Female, 60 years old. Sob TECHNIQUE: PA and lateral views of the chest. COMPARISON: Comparison is made with prior study dated 07/25/2019. FINDINGS: The lungs are clear and expanded. There is no demonstrated pleural abnormality. Normal size heart. Normal mediastinum and alee. Normal visualized pulmonary arteries. Normal visualized aortic arch and descending thoracic aorta. There are diffuse degenerative changes of the visualized thoracic spine. Normal visualized ribs, clavicles, and shoulders. There is no demonstrated abnormality of the visualized soft tissue structures of the upper abdomen. RAD/Chest PA and Lateral IMPRESSION: No acute abnormality is seen. Electronically Signed: Wili Kruger MD at 15:36 EST , Service support ,
== END ==
PROVIDERS: PCP Internal Medicine; Referring Provider Internal Medicine Nephrology; Visit Provider Internal Medicine Nephrology
DX: R06.02 Shortness of breath (principal); N18.6 End stage renal disease
CPT/HCPCS: 71046

== ENCOUNTER 2020-11-11 07:35 | Outpatient (RCR) | payer OTHER, MEDICARE, SELFPAY ==
[2020-05-05 05:43] VITALS: BMI 38.4
[2020-11-11] MEDS: COVID-19 VACC, MRNA(PFIZER)/PF 30 MCG/0.3 ML SYRINGE IM (12:26)
[2020-12-02] MEDS: COVID-19 VACC, MRNA(PFIZER)/PF 30 MCG/0.3 ML SYRINGE IM (12:19)
== END 2020-11-11 23:59 ==
LOC: IMMUN 07:35
PROVIDERS: PCP Internal Medicine; Referring Provider Family Medicine; Visit Provider Family Medicine
DX: Z23 Encounter for immunization (principal)
CPT/HCPCS: 0001A; 0002A; 91300

== ENCOUNTER 2021-01-13 08:20 | Day surgery (SDC) | payer OTHER, MEDICARE, SELFPAY ==
[2020-12-02 13:11] VITALS: BMI 40.3
[2020-12-29 11:52] LABS: Hematocrit 30.7 % (37-47); Hemoglobin 9.5 g/dL (12.0-15.0); Mean Corp Hgb Conc 30.9 g/dL (32-36); Mean Corpuscular Hgb 31.5 pg (27.0-32.0); Mean Corpuscular Volume 101.7 fL (81-99); Mean Platelet Vol. 9.7 fl (6.2-12.0); POSITIVE MORPHOLOGY YES; Platelet Count 215 K/mm3 (150-450); RBC Distribution Width SD 65.4 fl (35.1-43.9); Red Blood Count 3.02 M/mm3 (4.2-5.4); White Blood Count 5.5 K/mm3 (4.4-11.0)
[2020-12-29 11:53] LABS: Scan Indicated on CBC? Y/N YES- FLAGS NOTED
[2020-12-29 11:58] LABS: Anion Gap 8 (5-15); BUN 69 mg/dL (7-18); BUN/Creat Ratio 9.5 RATIO (10-20); Calcium,Total 9.2 mg/dL (8.5-10.1); Chloride 98 mmol/L (98-107); Creatinine, Serum 7.24 mg/dL (0.55-1.02); EST Glomerular Filtration Rate 6 mL/min (>60); Est Glom Filt Rate - Afr Amer 7 mL/min (>60); Glucose 247 mg/dL (74-106); Potassium 4.3 mmol/L (3.5-5.1); Sodium Level 137 mmol/L (136-145)
[2021-01-12 09:44] VITALS: BMI 40.3
--- NOTE | 2021-01-13 08:59 | HP.PCM_ITS ---
History and Physical [facility] [id number] [place] [address] [phone] OFFICE VISITDate of Service: 12/02/20 MR#:[id number]: AMDAN SERRATO #:[id number]:1960 Provider: JANEY Cervantes/Sex: 60/F [facility].WSAStatus:Signed Intake Vital Signs 12/02/20 Height 5 ft 6 in 12/02/20 Weight: 250 lb 12/02/20 BMI 40.3 12/02/20 BP 130/61 H 12/02/20 Blood Pressure Location Rt brachial 12/02/20 Position Sitting 12/02/20 Respiration 18 12/02/20 Pulse 67 12/02/20 Pulse Source NIBP 12/02/20 Temp 98.1 F 12/02/20 Temp Source Temporal 12/02/20 Pulse Oximetry (%) 98 12/02/20 Oxygen Delivery Method room air Intake Visit Reasons: FISTULA, DECREASE ACCESS FLOWS Chief Complaint: decreased flows Still Operator Brandy Required: No Is patient in pain?: No Allergies No Known Allergies Allergy (Verified 12/02/20 13:12) Medications atorvastatin 40 mg tablet 40 mg PO DAILY 12/03/18 [History Confirmed 12/02/20] omeprazole 20 mg capsule,delayed release 20 mg PO DAILY 12/03/18 [History Confirmed 12/02/20] abatacept 125 mg/mL subcutaneous auto-injector 125 mg SC QWEEK 10/06/19 [History Confirmed 12/02/20] calcitriol 0.25 mcg capsule 0.25 mcg PO DAILY cap 10/06/19 [History Confirmed 12/02/20] docusate sodium 100 mg capsule 100 mg PO BID cap 10/06/19 [History Confirmed 12/02/20] lisinopril 10 mg tablet 20 mg PO DAILY tab 10/06/19 [History Confirmed 12/02/20] Ondansetron HCl [Zofran] 4 mg PO PRN PRN 01/28/20 [History Confirmed 12/02/20] Sevelamer Carbonate 0.8 gm PO TID 01/28/20 [History Confirmed 12/02/20] carvedilol 25 mg tablet 25 mg PO BID tab 03/08/20 [History Confirmed 12/02/20] Insulin Aspart [Novolog Flexpen (BKC)] 50 units SC 4X/DAY 11/13/20 [History Confirmed 12/02/20] Insulin Degludec [Tresiba Flextouch U-100] 120 unit SQ DAILY 11/13/20 [History Confirmed 12/02/20] Vit B Comp No.3/Folic/C/Biotin [Nephro-Shubham Rx Tablet] 1 tab PO DAILY 11/13/20 [History Confirmed 12/02/20] Beclomethasone Diprop Inhaler [Qvar 80 Mcg Inhaler] 2 puff INHALATION BID 11/29/20 [History Confirmed 12/02/20] Diclofenac Sodium [Voltaren] 2 gm OTHER PRN PRN 11/29/20 [History Confirmed 12/02/20] Fluticasone 0.05% [Flonase Nasal [place]] 2 spray NARES DAILY 11/29/20 [History Confirmed 12/02/20] Is last menstrual period known: No Post menopausal: Yes Patient : No PFSH Medical History Problem with dialysis access (Acute) Chronic diastolic (congestive) heart failure (Chronic) Hyperlipidemia (Chronic) Essential (primary) hypertension (Chronic) Chronic renal failure, stage 4 (severe) (Chronic) Asthma (Chronic) Diabetes mellitus type 2 in obese (Chronic) GERD (gastroesophageal reflux disease) (Chronic) EDNA (iron deficiency anemia) (Chronic) Morbid obesity (Chronic) Obstructive sleep apnea (Chronic) Rheumatoid arthritis (Chronic) Acute respiratory failure (Resolved) Surgical History Broken arm (Resolved) Hx of arteriovenostomy for renal dialysis (Resolved 12/2018) Family History Father Hypertension CAD (coronary artery disease) Brother Diabetes Social History (Updated 12/02/20 @ 14:03 by Ting FORMAN, PA-C) Smoking Status: Never smoker alcohol intake: current HPI Surgical H&P: Yes HPI:Patient presents for an update history and physical for an elective fistulogram. Patient denies recent hospitalizations or illnesses. Patient denies any further concerns at dialysis. Patient has received both COVID vaccines. She is at least 2 weeks out. MADAN SERRATO, is a 60 F who presents to the office today for decreased flow. Patient has a left forearm radial to cephalic fistula. Patient's last fistulogram was on 04/19/[address] Lemons. Findings included high-grade proximal fistula venous stenosis and arterial anastomotic stenosis. Report of Operation Date of Procedure: 04/19/20 Pre-Operative Diagnosis: Diminished flow left forearm radial to cephalic arteriovenous hemodialysis fistula Post-Operative Diagnosis: High-grade proximal fistula venous stenosis and arterial anastomotic stenosis Surgery/Procedure Performed:: Left upper extremity fistulogram with 6 x 2 Cutting Balloon angioplasty and 7 x 2 Cutting Balloon angioplasty and 6 x 4 Powerflex angioplasty and 5 x 2 Powerflex angioplasty proximal fistula and arterial anastomosis She has had one treatment that she went from dialyzing in the green to yellow multiple times during that treatment. She notes otherwise she has been running fine. She notes post-treatment bleeds where she has to hold pressure for long periods of time. She is not currently on anticoagulants. She dialyzes on M, W, F. ROS General General: Yes weight change and fatigue; no appetite, colon cancer, breast cancer or weakness HEENT HEENT: Yes eye injury and eye surgery; no difficulty swallowing, swollen glands or hoarseness Endo Endocrine: Yes diabetes mellitus; no thyroid disease, thyroid cancer, Hair loss, heat intolerance or cold intolerance Skin Skin: No rash or changing moles Breast Breast: No left breast lump, right breast lump, nipple discharge, breast pain, abnormal mammogram, abnormal US or breast enlargement Cardio Cardiovascular: Yes heart disease and high blood pressure; no murmur, pacemaker, atrial fibrillation, heart attack, heart stent, palpitations, shortness of breat with exertion or chest pain Psych Psychiatric: Yes anxiety; no depression or hearing voices Resp Respiratory: Yes shortness of breath, No sleep apnea, No cough, No COPD, No asthma, No emphysema, No wheezing Gastro Gastrointestinal: No abdominal pain, Yes nausea or vomiting, No diarrhea, No constipation, No blood in stool, No acid reflux, No hemorrhoids, No ulcers, No gallbladder problem, No black,tarry stools Jamaal Hematologic: No blood thinners, No blood disorders, No bleeding, Yes anemia, No blood clots Neuro Neurologic: No weakness Exam Const General: cooperative, healthy appearing, comfortable, no acute distress HENMT Head: normal to inspection Eyes General: appearance normal, both eyes and all related structures Neck Neck: normal visual inspection Chest Breast Palpation: No nipple discharge Resp Effort & Inspection: normal respiratory effort Auscultation: clear to auscultation bilaterally Cardio Rate: regular rate Rhythm: regular rhythm Heart Sounds: no murmurs GI Inspection: normal to inspection Palpation: soft Auscultation: normal bowel sounds Musc Cervical Spine: normal cervical lordosis Skin General: no rashes or lesions noted Neuro General: no focal motor deficits, CN's II-XI intact bilaterally Extrem Other: Left forearm fistula- good pulse, diminished bruit and thrill mid forearm just superior to access sites. Psych Appearance: grossly normal Affect: normal affect Assessment & Plan Problems 1. Problem with dialysis access, subsequent encounter T82.068D Plan Dr. Lemons will plan to perform a left forearm fistulogram utilizing retrograde access. Procedure details. risks and benefits have been explained. Patient has had the opportunity to ask and have questions answered. Patient verbally understands and agrees with the plan. Patient had her 2nd COVID vaccine today. Typically recommend waiting 2 weeks after 2nd injection for any procedure. We will schedule at the earliest time permitted. Coding Level of Care Code Off vis,est,level 3 Diagnoses Problem with dialysis access, subsequent encounter T82.662D Encounter type: subsequent encounter 12/02/20 140<Electronically signed by Ting FORMAN PA-C> Visit Charges Office Visits / Consults: 20057 OV L1 Est (Updated H&P. No charge.)
--- NOTE | 2021-01-13 10:47 | OP.PCM_ITS ---
Problems Associated Problem List Diagnoses (1) Problem with dialysis access: Report of Operation Date of Procedure: 01/13/21 Pre-Operative Diagnosis: Diminished flow left forearm transposed cephalic vein to radial artery arteriovenous hemodialysis fistula Post-Operative Diagnosis: Same Surgery/Procedure Performed:: Left upper extremity fistula with double access and 7 x 2 conquest angioplasty x3 areas of venous stenosis and 10 x 2 [place] angioplasty of 2 areas of venous stenosis Description of Surgical Findings:: Timeout and informed consent was obtained. 60-year-old female was taken to the special procedures lab placed upon the table. The left upper extremity was sterilely prepped and draped. Under ultrasound guidance 2% lidocaine was instilled as a local anesthetic closer to the antecubital space. Retrograde with flow using a micropuncture needle the vein was accessed. Seldinger wire technique performed sheath dilator was inserted. Then using an 03 5 inch Glidewire and a 4 [place] glide catheter gain access to the radial artery at the anastomosis site. Although I could get the wire to engage the radial artery proximally I could not get the catheter to advance due to to acute event angulation. So I left the catheter at that junction and using Isovue contrast and a fistulogram of the forearm. This demonstrated a stenosis of the very origin of the fistula for centimeter. There is some relative dilatation then a second area of stenosis within 4 cm. There was then a third area of stenosis in the proximal forearm where the vein coursed back toward its normal [place] position from the transposition. The sheath was right at that location. Because of the amount of angioplasty that I was anticipating requiring I gave the patient 5000 is of heparin. Initially placed a 7 x 2 conquest balloon and I performed separate balloon angioplasty to the 2 areas of proximal fistula venous stenosis. The one area adjacent the artery seemed to respond well. The second area responded but incompletely. So then I placed a 10 x 2 [place] balloon and performed angioplasty of that secondary of stenosis at approximately 4 cm. That was inflated to 20 ramses of pressure and it did seem to respond with opening of the vein. I could not get the more proximal forearm lesion so I had a now perform a secondary access. In about the mid forearm local was instilled micropuncture needle inserted antegrade with flow 6 [place] short sheath was inserted. Advanced a Glidewire. Placed a 7 x 2 conquest balloon and performed balloon angioplasty. I then had a sheath in place a 7 [place] sheath now to allow for the 10 x 2 [place] balloon. I used carotid wound perform balloon angioplasty did that up to 20 ramses of pressure but in the proximal forearm as the vein was coursing back to his [place] position there still was slight wasting of the 10 x 2 [place]. I did not press this technology Har[place] as I felt that this would likely lead to vein rupture. Final images however demonstrate dramatic improvement in all areas of stenosis. I completed the fistulogram of the upper arm there is good central venous outflow. Images demonstrate a transposed left forearm cephalic vein to radial artery AV fistula. I could not get into the radial artery proximal to the anastomosis but the anastomosis itself appeared to be widely patent. There was stenosis of the very proximal 1 cm of the fistula and then at 4 cm and then at the very proximal forearm. Subsequent to a combination of 7 x 2 conquest angioplasty in 10 x 2 [place] angioplasty these areas of stenosis appear to have been relieved. There is good central venous outflow. Specimens none. Drains none. Blood loss minimal. It is of note that initiation of the procedure the patient received 50 mcg of fentanyl and 2 mg of Versed. Later in the procedure she received an additional 1 mg of Versed as IV sedation. Jimenez Lemons M.D., F.A.C.S. Type of Anesthesia: IV Sedation and Local
== END 2021-01-13 12:45 | disposition home or self-care (01) ==
LOC: CLSP 08:21
PROVIDERS: PCP Internal Medicine; Referring Provider Surgery; Visit Provider Surgery
DX: T82.858A Stenosis of other vascular prosthetic devices, implants and grafts, initial encounter (principal); I13.0 Hypertensive heart and chronic kidney disease with heart failure and stage 1 through stage 4 chronic kidney disease, or unspecified chronic kidney disease; E11.22 Type 2 diabetes mellitus with diabetic chronic kidney disease; N18.4 Chronic kidney disease, stage 4 (severe); I50.32 Chronic diastolic (congestive) heart failure; Z99.2 Dependence on renal dialysis; M06.9 Rheumatoid arthritis, unspecified; K21.9 Gastro-esophageal reflux disease without esophagitis; E78.5 Hyperlipidemia, unspecified; E66.01 Morbid (severe) obesity due to excess calories; Z68.41 Body mass index [BMI] 40.0-44.9, adult; Z79.4 Long term (current) use of insulin; Z79.899 Other long term (current) drug therapy
CPT/HCPCS: 36415; 36902; 76937; 80048; 85027; 99152; 99153; Q9967; C1725; C1769; C1894